=== PATIENT | female | born 1935 | race Caucasian/White ===

== ENCOUNTER 2018-09-18 15:19 | Emergency (ER) | payer OTHER ==
--- OUTSIDE RECORDS SUMMARY | 2018-09-18 15:21 | XMS REPORT | Clinical Summary ---
:1935 Author Organization [facility] Address [address] [place] [address] Care Team Providers Name Role Phone Anum Iniguez JUNIOR BUSINESS ANALYST-C Primary Care Provider Allergies Active Allergy Reactions Severity Noted Date Comments Codeine GI Intolerance 01/21/2016 Other 01/21/2016 Darvocet Medications Medication Sig Dispensed Refills Start Date End Date Status esomeprazole Take 40 mg by 0 Active (NexIUM) 40 MG mouth daily capsule before breakfast. levothyroxine Take 100 mcg by 0 Active (SYNTHROID, mouth every LEVOTHROID) 100 MCG morning. tablet metFORMIN Take 1,000 mg by 0 Active (GLUCOPHAGE) 1000 mouth 2 (two) MG tablet times a day with meals. glipiZIDE Take 5 mg by 0 Active (GLUCOTROL) 5 MG mouth 2 (two) tablet times a day before meals. losartan-hydrochlor Take 1 tablet by 0 Active othiazide (HYZAAR) mouth daily. 50-12.5 mg per tablet potassium chloride Take 10 mEq by 0 Active (K-DUR,KLOR-CON) 10 mouth 2 (two) MEQ CR tablet times a day. amLODIPine Take 5 mg by 0 Active (NORVASC) 5 mg mouth daily. tablet calcium carbonate Take by mouth. 0 Active (CALCIUM 500 ORAL) Raw Calcium cycloSPORINE Administer 1 0 Discontinued (RESTASIS) 0.05 % drop to both 8 ophthalmic emulsion eyes every 12 (twelve) hours. losartan (COZAAR) 0 04/12/2017 Discontinued 50 MG tablet 8 Active Problems Problem Noted Date VIKTORIYA on CPAP 05/26/2017 Pulmonary emphysema 11/07/2016 Essential hypertension 07/09/2016 VIKTORIYA (obstructive sleep apnea) 01/21/2016 AR (allergic rhinitis) 01/21/2016 GERD (gastroesophageal reflux disease) 01/21/2016 Encounters Date Type Specialty Care Team Description 07/09/2018 Telephone Pulmonology Leigha Friedman MA 07/08/2018 Orders Only Pulmonology Manohar Faria MD VIKTORIYA (obstructive sleep apnea) (Primary Dx) 06/24/2018 Orders Only Pulmonology Leigha Friedman MA VIKTORIYA (obstructive sleep apnea) 06/07/2018 Orders Only Pulmonology Manohar Faria MD VIKTORIYA (obstructive sleep apnea) (Primary Dx) 06/07/2018 Telephone Pulmonology Brandi Barfield MA 05/31/2018 Office Visit Pulmonology Linda Amin MD VIKTORIYA on CPAP (Primary Dx) 01/28/2018 Office Visit Pulmonology Manohar Faria MD VIKTORIYA on CPAP ( Primary Dx); Other emphysema; Gastroesophageal reflux disease, esophagitis presence not specified; Allergic rhinitis due to pollen, unspecified chronicity, unspecified seasonality; Essential hypertension 11/03/2017 Telephone Pulmonology Yahaira Meza MA 10/05/2017 Office Visit Pulmonology Manohar Faria MD VIKTORIYA (obstructive sleep apnea) (Primary Dx); Other emphysema; Gastroesophageal reflux disease, esophagitis presence not specified; Allergic rhinitis due to pollen, unspecified chronicity, unspecified seasonality after 09/17/2017 Immunizations Name Dates Previously Given Next Due Pneumococcal Conjugate 12/28/2014 Family History Medical History Relation Name Comments Cancer Father Kidney failure Mother Sleep disorder Son Relation Name Status Comments Father Mother Son Social History Tobacco Use Types Packs/Day Years Used Date Never Smoker Smokeless Tobacco: Never Used Alcohol Use Drinks/Week oz/Week Comments No Sex Assigned at Date Recorded Not on file Job Start Date Occupation Industry Not on file Not on file Not on file Travel History Travel Start Travel End No recent travel history available. Last Filed Vital Signs Vital Sign Reading Time Taken Blood Pressure 154/74 05/31/2018 11:27 AM CDT Pulse 87 05/31/2018 11:27 AM CDT Temperature 36.2 C (97.1 F) 05/31/2018 11:27 AM CDT Respiratory Rate - - Oxygen Saturation 95% 05/31/2018 11:27 AM CDT Inhaled Oxygen Concentration - - Weight 71.2 kg (157 lb) 05/31/2018 11:27 AM CDT Height - - Body Mass Index 27.81 05/31/2018 11:27 AM CDT Plan of Treatment Health Maintenance Due Date Last Done Comments SHINGLES VACCINES (1 of 2) 1986 PNEUMOCOCCAL-13 2001 INFLUENZA VACCINE 03/10/2018 PNEUMOCOCCAL POLYSACCHARIDE VACCINE AGE 65 AND OVER Completed 12/28/2014 Results Not on fileafter 09/17/2017 Insurance Payer Benefit Plan / Group Subscriber ID Type Phone Address HUMANA MEDICARE HUMANA MEDICARE PPO/PFFS/ERS [facility] xxxxxxxxx PPO Advance Directives Patient has advance care planning documents on file. For more information, please contact:Alvino Rodríguez[address] [place] [address]
--- OUTSIDE RECORDS SUMMARY | 2018-09-18 15:21 | XMS REPORT ---
:1935 [facility] Address [address] [place] [address] Care Team Providers Name Role Phone Unavailable Unavailable Unavailable Payers Payer Name Policy Type Policy Number Effective Date Expiration Date Problems This patient has no known problems. Allergies, Adverse Reactions, Alerts Allergy Allergy Status Severity Reaction(s) Onset Inactive Treating Comments Name Type Date Date Clinician dewayne MIDDLETON Active IGLESIA 2018-03 00:00:0 0 Medications This patient has no known medications.
--- NOTE | 2018-09-18 16:24 | RAD REPORT ---
EXAM DESCRIPTION: CT - Head Brain Wo Cont - 09/18/2018 4:06 pm CLINICAL HISTORY: Headache COMPARISON: 2008 TECHNIQUE: Computed axial tomography of the head was obtained. IV contrast was not requested. All CT scans are performed using dose optimization technique as appropriate and may include automated exposure control or mA/KV adjustment according to patient size. FINDINGS: An intracranial bleed is not seen . The ventricles are normal in caliber. No extra-axial fluid collection is noted. Fluid within the sinuses/ mastoids is not seen. IMPRESSION: No acute intracranial abnormality is seen. If patient's symptoms persist MRI of the bra in would be recommended.
[2018-09-18] MEDS ORDERED: KETOROLAC 30 MG/ML INJ ONE (16:52)
[2018-09-18] MEDS ORDERED: METOCLOPRAMIDE 10 MG/2mL INJ ONE (16:52)
[2018-09-18] MEDS ORDERED: DIPHENHYDRAMINE 50 MG/ML VIAL ONE (16:52)
--- NOTE | 2018-09-18 17:04 | EDPHYS ---
Physician Documentation [facility] Name: Melanie Kerr Age: 83 yrs Sex: Female : 1935 Arrival Date: 09/18/2018 Time: 15:23 Bed 20 Private MD: SANDRA WIGGINS ED Physician Robel Mariscal HPI: 09/18 16:36 This 83 yrs old Female presents to ER via Ambulatory with complaints of pm1 Headache. 16:36 The patient complains of pain to the forehead and left eye. The patient describes the pm1 headache as throbbing. Onset: The symptoms/episode began/occurred 2 day(s) ago. Associated signs and symptoms: Pertinent positives: Photophobia Pertinent negatives: fever, neck stiffness, paresthesias, rash, vision changes, weakness. Severity of symptoms: in the emergency department the pain has improved. Headache History: Denies prior headaches. The symptoms are alleviated by Darkened room, the symptoms are aggravated by lights. The patient has not experienced similar symptoms in the past. The patient has not recently seen a physician. Historical: - Allergies: 15:27 Codeine; la1 - PMHx: 15:27 Diabetes - NIDDM; Hypertension; Hypothyroidism; Sleep Apnea; T12 fracture; la1 - Immunization history:: Adult Immunizations up to date. - Social history:: Smoking status: Patient/guardian denies using tobacco. - Ebola Screening: : No symptoms or risks identified at this time. ROS: 16:36 Constitutional: Negative for fever, chills, and weight loss, Eyes: Negative for injury, pm1 pain, redness, and discharge, ENT: Negative for injury, pain, and discharge, Neck: Negative for injury, pain, and swelling, Cardiovascular: Negative for chest pain, palpitations, and edema, Respiratory: Negative for shortness of breath, cough, wheezing, and pleuritic chest pain, Abdomen/GI: Negative for abdominal pain, nausea, vomiting, diarrhea, and constipation, Back: Negative for injury and pain, : Negative for injury, bleeding, discharge, and swelling, MS/Extremity: Negative for injury and deformity, Skin: Negative for injury, rash, and discoloration. 16:36 Neuro: Positive for headache, Negative for numbness, tingling, weakness. Exam: 16:36 Constitutional: This is a well developed, well nourished patient who is awake, alert, pm1 and in no acute distress. Head/Face: Normocephalic, atraumatic. Eyes: Pupils equal round and reactive to light, extra-ocular motions intact. Lids and lashes normal. Conjunctiva and sclera are non-icteric and not injected. Cornea within normal limits. Periorbital areas with no swelling, redness, or edema. ENT: Nares patent. No nasal discharge, no septal abnormalities noted. Tympanic membranes are normal and external auditory canals are clear. Oropharynx with no redness, swelling, or masses, exudates, or evidence of obstruction, uvula midline. Mucous membranes moist. Neck: Trachea midline, no thyromegaly or masses palpated, and no cervical lymphadenopathy. Supple, full range of motion without nuchal rigidity, or vertebral point tenderness. No Meningismus. Chest/axilla: Normal chest wall appearance and motion. Nontender with no deformity. No lesions are appreciated. Cardiovascular: Regular rate and rhythm with a normal S1 and S2. No gallops, murmurs, or rubs. Normal PMI, no JVD. No pulse deficits. Respiratory: Lungs have equal breath sounds bilaterally, clear to auscultation and percussion. No rales, rhonchi or wheezes noted. No increased work of breathing, no retractions or nasal flaring. Abdomen/GI: Soft, non-tender, with normal bowel sounds. No distension or tympany. No guarding or rebound. No evidence of tenderness throughout. Back: No spinal tenderness. No costovertebral tenderness. Full range of motion. Skin: Warm, dry with normal turgor. Normal color with no rashes, no lesions, and no evidence of cellulitis. MS/ Extremity: Pulses equal, no cyanosis. Neurovascular intact. Full, normal range of motion. 16:36 Neuro: Orientation: is normal, Mentation: is normal, Cranial nerves: CN II- XII are normal as tested, Cerebellar function: normal finger to nose testing, Motor: is normal, moves all fours. Vital Signs: 15:29 BP 123 / 88; Pulse 91; Resp 18; Temp 98.9; Pulse Ox 98% on R/A; Weight 70.31 kg; Height la1 5 ft. 3 in. (160.02 cm); Pain 7/10; 17:00 BP 142 / 69; Pulse 89; Resp 18; Pulse Ox 99% on R/A; Pain 3/10; em 15:29 Body Mass Index 27.46 (70.31 kg, 160.02 cm) la1 MDM: 15:30 Patient medically screened. pm1 16:35 Data reviewed: vital signs. Data interpreted: Pulse oximetry: on room air is 98 %. pm1 Interpretation: normal. Counseling: I had a detailed discussion with the patient and/or guardian regarding: the historical points, exam findings, and any diagnostic results supporting the discharge/admit diagnosis, radiology results, the need for outpatient follow up, to return to the emergency department if symptoms worsen or persist or if there are any questions or concerns that arise at home. 09/18 15:39 Order name: CT Head Brain wo Cont; Complete Time: 16:28 pm1 Administered Medications: 16:46 Drug: Benadryl 12.5 mg Route: IVP; Site: left antecubital; hb 17:11 Follow up: Response: No adverse reaction; Pain is decreased em 16:48 Drug: Reglan 10 mg Route: IVP; Site: left antecubital; hb 17:10 Follow up: Response: No adverse reaction; Pain is decreased em 16:50 Drug: TORadol 15 mg Route: IVP; Site: left antecubital; hb 17:11 Follow up: Response: No adverse reaction; Pain is decreased em Disposition: 18:08 Co-signature as Attending Physician, Robel Mariscal MD. rn Disposition: 09/18/18 17:03 Discharged to Home. Impression: Headache. - Condition is Stable. - Discharge Instructions: General Headache Without Cause. - Medication Reconciliation Form, Thank You Letter form. - Follow up: Emergency Department; When: As needed; Reason: Worsening of condition. Follow up: Private Physician; When: 2 - 3 days; Reason: Recheck today's complaints, Continuance of care, Re-evaluation by your physician. - Problem is new. - Symptoms have improved. Signatures: Dispatcher [employer] Sinan Cha, FACING GRINDER FACING GRINDER Robel Ocampo MD MD rn Attema, Lee, RN RN la1 Simone Trimble, PINION STAKER PINION STAKER pm1 Beth Coats, RN RN hb Corrections: (The following items were deleted from the chart) 17:29 17:03 09/18/2018 17:03 Discharged to Home. Impression: Headache. Condition is Stable. em Forms are Medication Reconciliation Form, Thank You Letter, Antibiotic Education, Prescription Opioid Use. Follow up: Emergency Department; When: As needed; Reason: Worsening of condition. Follow up: Private Physician; When: 2 - 3 days; Reason: Recheck today's complaints, Continuance of care, Re-evaluation by your physician. Problem is new. Symptoms have improved. pm1
--- NOTE | 2018-09-18 17:04 | ER ---
Nurse's Notes [facility] Name: Melanie Kerr Age: 83 yrs Sex: Female : 1935 Arrival Date: 09/18/2018 Time: 15:23 Bed 20 Private MD: SANDRA WIGGINS Diagnosis: Headache Presentation: 09/18 15:27 Presenting complaint: Patient states: I started with a headache that started la1 at the top of my head and now and it is going down in to my left eye. Transition of care: patient was not received from another setting of care. Onset of symptoms was September 18, 2018. Risk Assessment: Do you want to hurt yourself or someone else? Patient reports no desire to harm self or others. Initial Sepsis Screen: Does the patient meet any 2 criteria? No. Patient's initial sepsis screen is negative. Does the patient have a suspected source of infection? No. Patient's initial sepsis screen is negative. Care prior to arrival: None. 15:27 Method Of Arrival: Ambulatory la1 15:27 Acuity: SHABBIR 3 la1 Historical: - Allergies: 15:27 Codeine; la1 - PMHx: 15:27 Diabetes - NIDDM; Hypertension; Hypothyroidism; Sleep Apnea; T12 fracture; la1 - Immunization history:: Adult Immunizations up to date. - Social history:: Smoking status: Patient/guardian denies using tobacco. - Ebola Screening: : No symptoms or risks identified at this time. Screenin:40 Abuse screen: Denies threats or abuse. Nutritional screening: No deficits noted. em Tuberculosis screening: No symptoms or risk factors identified. Fall Risk None identified. Assessment: 15:40 General: Appears in no apparent distress. comfortable, Behavior is calm, cooperative. em Pain: Complains of pain in forehead, left cheek and left eye Pain does not radiate. Pain currently is 0 out of 10 on a pain scale. at worst was 6 out of 10 on a pain scale. Quality of pain is described as sharp, Pain began 2-3 days ago. Is intermittent. Neuro: Level of Consciousness is awake, alert, obeys commands, Oriented to person, place, time, situation, Retail Product Advisor are equal bilaterally Speech is normal, Facial symmetry appears normal, Intact Reports headache Denies weakness dizziness, numbness. Cardiovascular: Capillary refill < 3 seconds Patient's skin is warm and dry. Respiratory: Airway is patent Respiratory effort is even, unlabored, Respiratory pattern is regular, symmetrical. GI: Patient currently denies nausea, vomiting. Derm: Skin is intact, is thin, Skin is pink, warm \T\ dry. Musculoskeletal: Circulation, motion, and sensation intact. Capillary refill < 3 seconds, Range of motion: intact in all extremities. 17:00 Reassessment: Patient appears in no apparent distress at this time. Patient and/or em family updated on plan of care and expected duration. Pain level reassessed. Patient is alert, oriented x 3, equal unlabored respirations, skin warm/dry/pink. rates pain 3/10 Patient states feeling better. Patient states symptoms have improved. Vital Signs: 15:29 BP 123 / 88; Pulse 91; Resp 18; Temp 98.9; Pulse Ox 98% on R/A; Weight 70.31 kg; Height la1 5 ft. 3 in. (160.02 cm); Pain 7/10; 17:00 BP 142 / 69; Pulse 89; Resp 18; Pulse Ox 99% on R/A; Pain 3/10; em 15:29 Body Mass Index 27.46 (70.31 kg, 160.02 cm) la1 ED Course: 15:23 Patient arrived in ED. sb2 15:23 SANDRA WIGGINS is Private Physician. sb2 15:28 Triage completed. la1 15:28 Arm band placed on left wrist. la1 15:30 Simone Trimble NP is PHCP. pm1 15:30 Robel Mariscal MD is Attending Physician. pm1 15:35 Sinan Atkinson LVN is Primary Nurse. em 15:40 Patient has correct armband on for positive identification. Bed in low position. Call em light in reach. Adult w/ patient. Pulse ox on. NIBP on. 16:05 CT completed. Patient tolerated procedure well. Patient moved to CT via wheelchair. Patient moved back from CT. 16:07 CT Head Brain wo Cont In Process Unspecified. EDMS 16:40 Inserted saline lock: 20 gauge in left antecubital area, using aseptic technique. Blood dh3 collected. 17:27 No provider procedures requiring assistance completed. IV discontinued, intact, em bleeding controlled, No redness/swelling at site. Pressure dressing applied. Administered Medications: 16:46 Drug: Benadryl 12.5 mg Route: IVP; Site: left antecubital; hb 17:11 Follow up: Response: No adverse reaction; Pain is decreased em 16:48 Drug: Reglan 10 mg Route: IVP; Site: left antecubital; hb 17:10 Follow up: Response: No adverse reaction; Pain is decreased em 16:50 Drug: TORadol 15 mg Route: IVP; Site: left antecubital; hb 17:11 Follow up: Response: No adverse reaction; Pain is decreased em Outcome: 17:03 Discharge ordered by MD. pm1 17:27 Discharged to home via wheelchair. em 17:27 Condition: good 17:27 Discharge instructions given to patient, family, Instructed on discharge instructions, follow up and referral plans. Demonstrated understanding of instructions, follow-up care. 17:29 Patient left the ED. em Signatures: Dispatcher [employer] EDPillo Jernigan Edgar, TUTOR TUTOR em Igor Gaytan RN RN la1 Simone Trimble NP SWATCH CHECKER pm1 Beth Coats RN RN hb Herrera, Deanna 3 Slime Garrison2
== END 2018-09-18 17:29 | disposition home or self-care (01) ==
LOC: ER 15:19
DX: R51 Headache (principal)
CPT/HCPCS: 70450; 96374; 96375; 99284; J2765

== ENCOUNTER 2018-09-21 12:52 | Emergency (ER) | payer OTHER ==
--- OUTSIDE RECORDS SUMMARY | 2018-09-21 12:54 | XMS REPORT | Clinical Summary ---
:1935 Author Organization [facility] Address [address] [place] [address] Care Team Providers Name Role Phone Anum Iniguez DIRECTOR VIDEO-C Primary Care Provider Allergies Active Allergy Reactions [...] to pollen, unspecified chronicity, unspecified seasonality after 09/20/2017 Immunizations Name Dates Previously Given Next Due [...] OVER Completed 12/28/2014 Results Not on fileafter 09/20/2017 Insurance Payer Benefit Plan / Group Subscriber ID Type Phone Address HUMANA MEDICARE HUMANA MEDICARE PPO/PFFS/ERS [facility] xxxxxxxxx PPO Advance Directives Patient has advance care planning documents on file. For more information, please contact:Alvino Rodríguez[address] [place] [address]
--- OUTSIDE RECORDS SUMMARY | 2018-09-21 12:54 | XMS REPORT ---
:1935 [facility] Address [address] [place] [address] Care Team Providers Name Role Phone Unavailable [...]
--- NOTE | 2018-09-21 13:54 | ER ---
Nurse's Notes [facility] Name: Melanie Kerr Age: 83 yrs Sex: Female : 1935 Arrival Date: 09/21/2018 Time: 12:54 Bed 28 Private MD: Diagnosis: Zoster [herpes zoster] Presentation: 09/21 13:11 Presenting complaint: Patient states: was seen here on Thursday for migraine, followed iw up with PCP yesterday, still c/o nausea, and also noticed a rash across the left side of her forehead/scalp yesterday, thinks it might be shingles. Transition of care: patient was not received from another setting of care. Onset of symptoms was September 20, 2018. Risk Assessment: Do you want to hurt yourself or someone else? Patient reports no desire to harm self or others. Initial Sepsis Screen: Does the patient meet any 2 criteria? No. Patient's initial sepsis screen is negative. Does the patient have a suspected source of infection? No. Patient's initial sepsis screen is negative. Care prior to arrival: None. 13:11 Method Of Arrival: Ambulatory iw 13:11 Acuity: SHABBIR 4 iw Historical: - Allergies: 13:14 Codeine; iw - Home Meds: 13:14 glipizide 5 mg Oral tab 1 tab 2 times per day [Active]; potassium chloride 10 mEq Oral iw TbER 1 tab once daily [Active]; levothyroxine 100 mcg tab 1 tab once daily [Active]; metformin 1,000 mg Oral tab 1 tab 2 times per day [Active]; amlodipine 5 mg tab 1 tab once daily [Active]; Nexium 40 mg Oral cpDR 1 cap once daily [Active]; - PMHx: 13:14 Diabetes - NIDDM; Hypertension; Hypothyroidism; Sleep Apnea; T12 fracture; iw - Immunization history:: Adult Immunizations up to date. - Ebola Screening: : Patient negative for fever greater than or equal to 101.5 degrees Fahrenheit, and additional compatible Ebola Virus Disease symptoms Patient denies exposure to infectious person Patient denies travel to an Ebola-affected area in the 21 days before illness onset No symptoms or risks identified at this time. - Family history:: not pertinent. - Social history:: Smoking status: Patient/guardian denies using tobacco, never smoked. - Hospitalizations: : No recent hospitalization is reported. Screenin:30 Abuse screen: Denies threats or abuse. Nutritional screening: No deficits noted. tl3 Tuberculosis screening: No symptoms or risk factors identified. Fall Risk None identified. Assessment: 13:30 General: Appears in no apparent distress. slender, well groomed, well developed, well tl3 nourished, Behavior is calm, cooperative, appropriate for age. Pain: Complains of pain in face. Neuro: Level of Consciousness is awake, alert, obeys commands, Oriented to person, place, time, situation, Appropriate for age. Cardiovascular: Patient's skin is warm and dry. Respiratory: Airway is patent Respiratory effort is even, unlabored, Respiratory pattern is regular, symmetrical. GI: No signs and/or symptoms were reported involving the gastrointestinal system. : No signs and/or symptoms were reported regarding the genitourinary system. EENT: No signs and/or symptoms were reported regarding the EENT system. Derm: Rash noted that is left side of face. Musculoskeletal: No signs and/or symptoms reported regarding the musculoskeletal system. 14:02 Reassessment: Patient appears in no apparent distress at this time. No changes from tl3 previously documented assessment. Patient and/or family updated on plan of care and expected duration. Pain level reassessed. Patient is alert, oriented x 3, equal unlabored respirations, skin warm/dry/pink. pt being discharged. Vital Signs: 13:12 BP 164 / 69 RA Sitting (auto/reg); Pulse 82; Resp 97 S; Pulse Ox 97% on R/A; Pain 6/10; jp3 14:02 BP 153 / 89; Pulse 80; Resp 18; Pulse Ox 98% on R/A; tl3 13:12 Reported pain is more overall "crappy" feeling jp3 ED Course: 12:54 Patient arrived in ED. rg4 13:04 Ronel Granados, RN is Primary Nurse. tl3 13:13 Triage completed. iw 13:14 Arm band placed on. iw 13:16 Robel Mariscal MD is Attending Physician. rn 13:20 Bed in low position. Call light in reach. Side rails up X 1. Warm blanket given. Pillow jp3 given. Pulse ox on. NIBP on. 13:30 No provider procedures requiring assistance completed. Patient did not have IV access tl3 during this emergency room visit. 13:51 Leidlein, Becky, MD is Referral Physician. rn Administered Medications: No medications were administered Outcome: 13:53 Discharge ordered by . rn 14:02 Discharged to home ambulatory. tl3 14:02 Condition: stable 14:02 Discharge instructions given to patient, family, Instructed on discharge instructions, follow up and referral plans. medication usage, Demonstrated understanding of instructions, follow-up care, medications, Prescriptions given X 3. 14:03 Patient left the ED. tl3 Signatures: Geri John RN RN iw Nieto, Roman, MD MD rn Garcia, Rubi rg4 Ronel Granados RN RN tl3 Rickie Garrido jp3
--- NOTE | 2018-09-21 13:54 | EDPHYS ---
Physician Documentation [facility] Name: Melanie Kerr Age: 83 yrs Sex: Female : 1935 Arrival Date: 09/21/2018 Time: 12:54 Bed 28 Private MD: ED Physician Robel Mariscal HPI: 09/21 13:48 This 83 yrs old Female presents to ER via Ambulatory with complaints of rn Shingles. 13:48 The patient's rash thought to be caused by an unknown cause. The rash is located on the rn face. The rash can be described as erythematous, raised, vesicular. Onset: The symptoms/episode began/occurred today. Severity of symptoms: At their worst the symptoms were mild in the emergency department the symptoms are unchanged. The patient has not experienced similar symptoms in the past. Reports has been having headaches, now gone, seen here with neg CT scan 2 days ago, seen by pcp yesterday, now noticed rash to left forehead, no vision or eye complaints, no fever. . Historical: - Allergies: 13:14 Codeine; iw - Home Meds: 13:14 glipizide 5 mg Oral tab 1 tab 2 times per day [Active]; potassium chloride 10 mEq Oral iw TbER 1 tab once daily [Active]; levothyroxine 100 mcg tab 1 tab once daily [Active]; metformin 1,000 mg Oral tab 1 tab 2 times per day [Active]; amlodipine 5 mg tab 1 tab once daily [Active]; Nexium 40 mg Oral cpDR 1 cap once daily [Active]; - PMHx: 13:14 Diabetes - NIDDM; Hypertension; Hypothyroidism; Sleep Apnea; T12 fracture; iw - Immunization history:: Adult Immunizations up to date. - Ebola Screening: : Patient negative for fever greater than or equal to 101.5 degrees Fahrenheit, and additional compatible Ebola Virus Disease symptoms Patient denies exposure to infectious person Patient denies travel to an Ebola-affected area in the 21 days before illness onset No symptoms or risks identified at this time. - Family history:: not pertinent. - Social history:: Smoking status: Patient/guardian denies using tobacco, never smoked. - Hospitalizations: : No recent hospitalization is reported. ROS: 13:48 Constitutional: Negative for fever, chills, and weight loss, Eyes: Negative for injury, rn pain, redness, and discharge, Neck: Negative for injury, pain, and swelling, Cardiovascular: Negative for chest pain, palpitations, and edema, Respiratory: Negative for shortness of breath, cough, wheezing, and pleuritic chest pain, Abdomen/GI: Negative for abdominal pain, nausea, vomiting, diarrhea, and constipation, MS/Extremity: Negative for injury and deformity, Skin: + rash to left forehead Neuro: Negative for weakness, numbness, tingling, and seizure. Exam: 13:48 Constitutional: This is a well developed, well nourished patient who is awake, alert, rn and in no acute distress. Head/Face: Normocephalic, atraumatic. Eyes: Pupils equal round and reactive to light, extra-ocular motions intact. Lids and lashes normal. Conjunctiva and sclera are non-icteric and not injected. Cornea within normal limits. Periorbital areas with no swelling, redness, or edema. Skin: + vesicular rash to left forehead, no ocular involvement, normal vision, no periocular swelling, no drainage MS/ Extremity: Pulses equal, no cyanosis. Neurovascular intact. Full, normal range of motion. Equal circumference. Neuro: Awake and alert, GCS 15, oriented to person, place, time, and situation. Cranial nerves II-XII grossly intact. Motor strength 5/5 in all extremities. Sensory grossly intact. Cerebellar exam normal. Normal gait. Vital Signs: 13:12 BP 164 / 69 RA Sitting (auto/reg); Pulse 82; Resp 97 S; Pulse Ox 97% on R/A; Pain 6/10; jp3 14:02 BP 153 / 89; Pulse 80; Resp 18; Pulse Ox 98% on R/A; tl3 13:12 Reported pain is more overall "crappy" feeling jp3 MDM: 13:16 Patient medically screened. rn 13:48 Differential diagnosis: impetigo, shingles. Data reviewed: vital signs, nurses notes, rn old medical records, and as a result, I will discharge patient. Counseling: I had a detailed discussion with the patient and/or guardian regarding: the historical points, exam findings, and any diagnostic results supporting the discharge/admit diagnosis, the need for outpatient follow up, to return to the emergency department if symptoms worsen or persist or if there are any questions or concerns that arise at home. Special discussion: I discussed with the patient/guardian in detail that at this point there is no indication for admission to the hospital. It is understood, however, that if the symptoms persist or worsen the patient needs to return immediately for re-evaluation. 13:48 Special discussion: Based on the history and exam findings, there is no indication for rn further emergent testing or inpatient evaluation. I discussed with the patient/guardian the need to see the opthamologist for further evaluation of the symptoms. ED course: Told her because of location of rash to make appt with her eye doctor, Dr Yang for full ophtho eval. . Administered Medications: No medications were administered Disposition: 09/21/18 13:53 Discharged to Home. Impression: Zoster [herpes zoster]. - Condition is Stable. - Discharge Instructions: Shingles. - Prescriptions for Prednisone 20 mg Oral Tablet - take 3 tablet by ORAL route once daily for 5 days; 15 tablet. Valtrex 1 g Oral Tablet - take 1 tablet by ORAL route every 8 hours for 7 days; 21 tablet. Zofran ODT 4 mg Oral tablet,disintegrating - place 1 tablet by TRANSLINGUAL route every 8 hours As needed; 20 tablet. - Medication Reconciliation Form, Thank You Letter, Antibiotic Education, Prescription Opioid Use form. - Follow up: Becky Yang MD; When: As needed; Reason: Recheck today's complaints, Re-evaluation by your physician. - Problem is new. - Symptoms have improved. Signatures: Geri John RN RN iw Nieto, Roman, MD MD rn Lowrey, Tammy, RN RN tl3 Corrections: (The following items were deleted from the chart) 14:03 13:53 09/21/2018 13:53 Discharged to Home. Impression: Zoster [herpes zoster]. tl3 Condition is Stable. Forms are Medication Reconciliation Form, Thank You Letter, Antibiotic Education, Prescription Opioid Use. Follow up: Becky Yang; When: As needed; Reason: Recheck today's complaints, Re-evaluation by your physician. Problem is new. Symptoms have improved. rn
== END 2018-09-21 14:03 | disposition home or self-care (01) ==
LOC: ER 12:52
DX: B02.9 Zoster without complications (principal); E11.9 Type 2 diabetes mellitus without complications; I10 Essential (primary) hypertension; E03.9 Hypothyroidism, unspecified; Z79.84 Long term (current) use of oral hypoglycemic drugs; Z88.5 Allergy status to narcotic agent
CPT/HCPCS: 99283

== ENCOUNTER 2019-07-21 10:24 | Observation (INO) | payer OTHER ==
--- OUTSIDE RECORDS SUMMARY | 2019-07-21 11:13 | XMS REPORT ---
:1935 [facility] Address [address] [place] [address] Care Team Providers Name Role Phone Unavailable Unavailable Unavailable Payers Payer Name Policy Type Policy Number Effective Date Expiration Date Problems This patient has no known problems. Allergies, Adverse Reactions, Alerts Allergy Allergy Status Severity Reaction(s) Onset Inactive Treating Comments Name Type Date Date Clinician dewayne MIDDLETON Active [place] 2018-03 00:00:0 0 Medications This patient has no known medications. Results Test Description Test Time Test Comments Text Results Atomic Results Result Comments - MRI L-SPINE W/O CONT 2019-03-14 12:20:00 Patient Name: WINIFRED ENGLISH Unit No: [id number] EXAMS: CPT CODE: [id number] MRI L-SPINE W/O CONT [id number] MRI OF THE LUMBAR SPINE: DIAGNOSIS: 1. At L1-2, mild disc degeneration. No central canal stenosis. Mild to moderate foraminal stenosis. There is a chronic benign compression fracture of the L1 vertebral body with greater than 70% loss of vertebral body height centrally. 2. At L2-3, moderate disc degeneration. Marked bone marrow edema involves the entire L3 vertebral body suggestive of an acute compression fracture. This is likely superimposed on chronic superior endplate compression fracture. There is adjacent increased signal present within the paravertebral soft tissues at this level. This spectrum of findings is likely related to subacute compression fracture. Please correlate with the clinical examination and history. This may be further evaluated with a whole-body nuclear bone scan. Mild central canal stenosis. Moderate bilateral facet arthropathy. Moderate foraminal stenosis. 3. At L3-4, disc desiccation. Mild central canal stenosis. Moderate facet arthropathy. No foraminal stenosis. 4. At L4-5, disc desiccation. Mild central canal stenosis. Mild facet arthropathy. Mild foraminal stenosis. 5. At L5-S1, disc desiccation. Mild disc bulging. Mild to moderate central canal stenosis. Marked bilateral facet arthropathy. No foraminal stenosis. COMMENT: COMPARISON: No prior exams available. Sagittal T1, T2 and STIR and axial T1 and T2-weighted sequences are obtained of the lumbar spine. The lumbar vertebrae are within normal limits in signal. The findings are as above. The conus is in the expected location. at 1220 Reported and signed by: Raúl Otto MD CC: Joshua Holguin MD Technologist: Mirian Holliday(R) Transcribed D/ ([id number]) CelinaGVG [facility] NAME: WINIFRED ENGLISH [address] [facility] PHYS: Joshua Kaur : 1935 AGE: 83 SEX: F [place] [address] LOC: Y.MRI PHONE #: [phone] EXAM DATE: 03/12/2019 STATUS: DEP CLI FAX #: [phone] RAD #: D/C DT PAGE 1 Signed Report Patient Name: WINIFRED ENGLISH Unit No: [id number] EXAMS: CPT CODE: [id number] MRI L-SPINE W/O CONT [id number] <Continued> Orig Print D/T: S: 03/14/2019 ([id number]) [facility] NAME: WINIFRED ENGLISH [address] [facility] PHYS: Joshua Kaur : 1935 AGE: 83 SEX: F [place] [address] LOC: Y.MRI PHONE #: [phone] EXAM DATE: 03/12/2019 STATUS: DEP CLI FAX #: [phone] RAD #: D/C DT PAGE 2 Signed Report
--- NOTE | 2019-07-21 11:48 | RAD REPORT ---
EXAM DESCRIPTION: CT - Head Brain Wo Cont - 07/21/2019 11:42 am CLINICAL HISTORY: SLURRED SPEECH Headache, drowsiness, CVA symptomology COMPARISON: Head Brain Wo Cont dated 09/18/2018; HEAD BRAIN W O CONTRAST dated 05/26/2009 TECHNIQUE: All CT scans are performed using dose optimization technique as appropriate and may inclu de automated exposure control or mA/KV adjustment according to patient size. FINDINGS: No intracranial hemorrhage, hydrocephalus or extra-axial fluid collection.No areas of brai n edema or evidence of midline shift. The paranasal sinuses and mastoids are clear. The calvarium is intact. IMPRESSION: No acute intracranial abnormality.
[2019-07-21 12:22] LABS: Absolute Lymphocytes (CBC) 1.4 K/uL (0.7-4.9); Basophils % 0.8 % (0-1.3); Hematocrit 38.5 % (36.0-45.0); Lymphocytes % 18.8 % (15.3-44.8); MPV 8.4 fL (7.6-11.3); RBC Red Blood Cell Count 4.23 M/uL (3.86-4.86)
[2019-07-21 12:23] LABS: Protime INR 1.06
[2019-07-21] MEDS ORDERED: ASPIRIN 81 MG CHEWABLE TABLET ONE (12:30)
[2019-07-21 12:36] LABS: ALT/SGPT 23 U/L (12-78); AST/SGOT 17 U/L (15-37); Albumin 3.8 g/dL (3.4-5.0); Alkaline Phosphatase 81 U/L (45-117); BUN Blood Urea Nitrogen 18 mg/dL (7-18); Bicarbonate 29 mmol/L (21-32); Bilirubin Direct 0.2 mg/dL (0-0.2); Bilirubin Total 0.4 mg/dL (0.2-1.0); Glucose Level 125 mg/dL (74-106); Magnesium 1.9 mg/dL (1.8-2.4); NT PRO-BNP 213 pg/mL (<450); Potassium 3.9 mmol/L (3.5-5.1); Protein, Total 7.2 g/dL (6.4-8.2); Sodium Level 135 mmol/L (136-145); Troponin (Emerg Dept Use Only) < 0.02 ng/mL (0.0-0.045)
--- NOTE | 2019-07-21 12:39 | RAD REPORT ---
EXAM DESCRIPTION: Irina Single View07/21/2019 12:29 pm CLINICAL HISTORY: Hypertension/TIA COMPARISON: 2018 FINDINGS: The lungs appear clear of acute infiltrate. The heart is normal size IMPRESSION: No acute abnormalities displayed
--- NOTE | 2019-07-21 13:13 | ER ---
Nurse's Notes [facility] Name: Melanie Kerr Age: 83 yrs Sex: Female : 1935 Arrival Date: 07/21/2019 Time: 10:27 Bed 7 Private MD: Diagnosis: Transient cerebral ischemic attack, unspecified Presentation: 07/21 10:31 Presenting complaint: Patient states: about 7pm last night i was talking to myself as tw2 usual cause i live alone and i couldn't make the words come out, i couldn't make the sentence that i was trying to, it lasted about a minute, it has not happened, i didn't have any other symptoms, my son wanted me to come in but i am terribly hard headed and told him it went away so i didn't want to come in. Transition of care: patient was not received from another setting of care. Onset of symptoms was July 20, 2019. Risk Assessment: Do you want to hurt yourself or someone else? Patient reports no desire to harm self or others. Initial Sepsis Screen: Does the patient meet any 2 criteria? No. Patient's initial sepsis screen is negative. Does the patient have a suspected source of infection? No. Patient's initial sepsis screen is negative. Care prior to arrival: None. 10:31 Method Of Arrival: Ambulatory tw2 10:31 Acuity: SHABBIR 3 tw2 10:38 No acute neurological deficit is noted. Triage Assessment: 10:36 The onset of the patients symptoms was more than six hours ago. The onset of the tw2 patients symptoms was July 20, 2019 at 19:00. General: Appears in no apparent distress. well groomed, Behavior is calm, cooperative, appropriate for age. Pain: Denies pain. Neuro: Reports "couldn't get the sentence out i was trying to say at 7pm last night". Stroke Activation: Symptom onset > 6 hours Physician: Stroke Attending; Name: ; Notified At: ; Arrived At: Physician: Chief Stroke Resident; Name: ; Notified At: ; Arrived At: Physician: Stroke Resident; Name: ; Notified At: ; Arrived At: Physician: ED Attending; Name: ; Notified At: ; Arrived At: Physician: ED Resident; Name: ; Notified At: ; Arrived At: Historical: - Allergies: 10:40 Codeine (Vomiting); tw2 - Home Meds: 10:40 amlodipine 5 mg tab 1 tab once daily [Active]; glipizide 5 mg Oral tab 1 tab 2 times tw2 per day [Active]; losartan-hydrochlorothiazide 50-12.5 mg Oral tab 1 tab once daily [Active]; levothyroxine 100 mcg tab 1 tab once daily [Active]; metformin 1,000 mg Oral tab 1 tab 2 times per day [Active]; Nexium 20 mg oral cpDR [Active]; potassium chloride 10 mEq Oral TbER 1 tab once daily [Active]; Restasis 0.05 % ophthalmic dpet 1 drop 2 times per day [Active]; Tymols 1 80 mcg shot per day [Active]; - PMHx: 10:40 Diabetes - NIDDM; Hypertension; Hypothyroidism; Sleep Apnea; T12 fracture; tw2 - PSHx: 10:40 L-1 Vertebrae; right knee replacement; cataract; tw2 - Immunization history:: Adult Immunizations. - Social history:: Smoking status: . - Ebola Screening: : Patient denies travel to an Ebola-affected area in the 21 days before illness onset. Screenin:41 VAN Screening: Arm Drift: Patient shows no arm weakness. Patient is VAN negative. sg Patient has been NPO before screening. The patient is alert, able to follow commands. The patient does not exhibit slurred or garbled speech The patient is not exhibiting difficulty speaking. The patient does not exhibit difficulty understanding words. The patient is able to swallow own secretions with no drooling or need for suction. Patient tolerated one teaspoon of water. No drooling, immediate coughing, gurgling, or clearing of the throat was noted. The patient tolerated 90mL of water. No drooling, immediate coughing, gurgling, or clearing of the throat was noted. The patient passed the bedside swallow screening. Oral medications may be given as ordered. Contact Physician for further diet orders. Assessment: 11:12 VAN Scoring: Arm Drift: Patients demonstrates NO arm weakness. Patient is VAN Negative. tw2 Visual Disturbance: No visual disturbance noted. Aphasia: No aphasia noted. Neglect: No neglect noted. 11:13 T-PA (Activase) Screening: Contraindications: Patient reports onset of signs and tw2 symptoms of stroke greater than 6 hours ago: Yes. 11:35 Reassessment: pt is in CT at this time. tw2 11:41 Reassessment: pt returned from CT at this time. sg 11:41 The patient has not been NPO before screening. The patient is alert, and able to follow sg commands. The patient does not exhibit slurred or garbled speech. The patient is not exhibiting difficulty speaking. The patient does not exhibit difficulty understanding words. The patient is able to swallow own secretions with no drooling or need for suction. Patient tolerated one teaspoon of water. No drooling, immediate coughing, gurgling, or clearing of the throat was noted. The patient tolerated 90mL of water. No drooling, immediate coughing, gurgling, or clearing of the throat was noted. Provider notified of bedside swallow screening results: Rivera Luo MD. 11:43 The patient passed the bedside swallow screening. Oral medications may be given as sg ordered. Contact Physician for further diet orders. General: Appears in no apparent distress. well groomed, well developed, well nourished, Behavior is calm, cooperative, appropriate for age. Pain: Denies pain. Neuro: Level of Consciousness is awake, alert, obeys commands, Oriented to person, place, time, Agriculture Mechanic are equal bilaterally Moves all extremities. Speech is normal, Facial droop on right. Cardiovascular: Capillary refill is brisk in bilateral fingers Patient's skin is warm and dry. Chest pain is denied. Respiratory: Airway is patent Respiratory effort is even, unlabored, Respiratory pattern is regular, symmetrical. GI: Abdomen is round non-distended, Reports tolerance of fluids, tolerance of food. : No signs and/or symptoms were reported regarding the genitourinary system. EENT: No signs and/or symptoms were reported regarding the EENT system. Derm: Skin is pink, warm \\T\\ dry. Musculoskeletal: Circulation, motion, and sensation intact. Range of motion: intact in all extremities. 13:00 Reassessment: Patient appears in no apparent distress at this time. Patient and/or sg family updated on plan of care and expected duration. Pain level reassessed. Patient is alert, oriented x 3, equal unlabored respirations, skin warm/dry/pink. awaiting radiology at this time, will continue to monitor. 14:00 Reassessment: Patient appears in no apparent distress at this time. Patient and/or sg family updated on plan of care and expected duration. Pain level reassessed. Patient is alert, oriented x 3, equal unlabored respirations, skin warm/dry/pink. Patient states feeling better. 15:25 Reassessment: Patient appears in no apparent distress at this time. Patient and/or sg family updated on plan of care and expected duration. Pain level reassessed. Patient is alert, oriented x 3, equal unlabored respirations, skin warm/dry/pink. pt to be admitted, admission orders received, awaiting radiology results, will continue to monitor. 16:28 Reassessment: Patient appears in no apparent distress at this time. Patient and/or sg family updated on plan of care and expected duration. Pain level reassessed. Patient is alert, oriented x 3, equal unlabored respirations, skin warm/dry/pink. awaiting a call back from Yaneth MATOS at this time, pt stated understanding Patient states feeling better. 16:34 Reassessment: pt reports using CPAP at night for sleeping, pt states does not have her sg CPAP machine with her for admission, pt to be admitted, receiving nurse Yaneth notified. Vital Signs: 10:40 BP 165 / 71; Pulse 98; Resp 17; Temp 97.3(TE); Pulse Ox 97% on R/A; Weight 68.04 kg tw2 (R); Height 5 ft. 3 in. (160.02 cm) (R); Pain 0/10; 12:00 BP 155 / 72; Pulse 89; Resp 18 S; Pulse Ox 98% on R/A; sg 13:00 BP 146 / 77; Pulse 87; Resp 17 S; Pulse Ox 100% on R/A; Pain 0/10; sg 14:20 BP 142 / 72; Pulse 88; Resp 18 S; Pulse Ox 98% on R/A; Pain 0/10; sg 15:30 BP 144 / 70; Pulse 86; Resp 17; Pulse Ox 98% on R/A; Pain 0/10; sg 16:30 BP 142 / 70; Pulse 80; Resp 17; Temp 97.3; Pulse Ox 98% on R/A; Pain 0/10; sg 10:40 Body Mass Index 26.57 (68.04 kg, 160.02 cm) tw2 NIH Stroke Scale Scores: 10:31 NIHSS Score: 0 tw2 11:41 NIHSS Score: 0 sg 13:04 NIHSS Score: 0 jr8 ED Course: 10:27 Patient arrived in ED. mr 10:35 Triage completed. tw2 10:35 Arm band placed on. tw2 10:35 No provider procedures requiring assistance completed. sg 10:38 Pulse ox on. NIBP on. sg 10:38 Head of bed elevated. sg 10:38 Patient has correct armband on for positive identification. Bed in low position. Call sg light in reach. Side rails up X2. 11:40 Saleem Contreras, RN is Primary Nurse. sg 11:44 CT Head Brain wo Cont In Process Unspecified. EDMS 11:48 David Toro PA is PHCP. jr8 11:48 Rivera Luo MD is Attending Physician. jr8 12:33 EKG done, by environmental services tech. reviewed by David KAHN. at1 12:36 XRAY Chest (1 view) In Process Unspecified. EDMS 13:00 Initial lab(s) drawn, by tn, sent to lab. Urine collected: clean catch specimen, clear, jb1 akira colored. Inserted saline lock: 22 gauge in left antecubital area, using aseptic technique. Blood collected. 13:10 Vishal Lim MD is Hospitalizing Provider. jr8 13:37 Awaiting: MRI at this time. sg 14:08 Carotid Artery Bilateral US In Process Unspecified. EDMS 15:08 MRA Head Wo Cont In Process Unspecified. EDMS 15:08 Brain W/Wo Cont In Process Unspecified. EDMS 15:08 MRA Neck W/Wo Cont In Process Unspecified. EDMS 15:42 Pt visited by Friend. sg 16:29 Patient admitted, IV remains in place. intact, No redness/swelling at site. sg 16:38 Admitting physician to see patient. sg Administered Medications: 12:36 Drug: Aspirin 81 mg Route: PO; jl7 13:20 Follow up: Response: No adverse reaction sg Outcome: 13:10 Decision to Hospitalize by Provider. jr8 17:02 Admitted to Tele accompanied by tech, via wheelchair, room 229, with chart. sg 17:02 Condition: good 17:02 Discharge instructions given to patient, Instructed on the need for admit, safety practices, Demonstrated understanding of instructions, follow-up care. 17:21 Patient left the ED. NIH Stroke Scale - NIH Stroke Score Date: 07/21/2019 Time: 10:31 Total Score = 0 1a. Level of Consciousness (LOC) - 0(Alert) 1b. Level of Consciousness (LOC) (Year \\T\\ Age) - 0(Both) 1c. LOC Commands (Open \\T\\ Closes Eyes/Hide Handler) - 0(Both) 2. Best Gaze (Lateral Gaze Paresis) - 0(Normal) 3. Visual Field Loss - 0(No visual loss) 4. Facial Palsy - 0(Normal) 5a. Left Arm: Motor (10-second hold) - 0(No drift) 5b. Right Arm: Motor (10-second hold) - 0(No drift) 6a. Left Leg: Motor (5-second hold - always test supine) - 0(No drift) 6b. Right Leg: Motor (5-second hold - always test supine) - 0(No drift) 7. Limb Ataxia (finger/nose \\T\\ heel/garzon - test with eyes open) - 0(Absent) 8. Sensory Loss (pinprick arms/legs/face) - 0(Normal) 9. Best Language: Aphasia (description/naming/reading) - 0(No aphasia) 10. Dysarthria (speech clarity - read or repeat words) - 0(Normal) 11. Extinction and Inattention (visual/tactile/auditory/spatial/personal) - 0(No abnormality) Initials: tw2 NIH Stroke Scale - NIH Stroke Score Date: 07/21/2019 Time: 11:41 Total Score = 0 1a. Level of Consciousness (LOC) - 0(Alert) 1b. Level of Consciousness (LOC) (Year \\T\\ Age) - 0(Both) 1c. LOC Commands (Open \\T\\ Closes Eyes/Hide Handler) - 0(Both) 2. Best Gaze (Lateral Gaze Paresis) - 0(Normal) 3. Visual Field Loss - 0(No visual loss) 4. Facial Palsy - 0(Normal) 5a. Left Arm: Motor (10-second hold) - 0(No drift) 5b. Right Arm: Motor (10-second hold) - 0(No drift) 6a. Left Leg: Motor (5-second hold - always test supine) - 0(No drift) 6b. Right Leg: Motor (5-second hold - always test supine) - 0(No drift) 7. Limb Ataxia (finger/nose \\T\\ heel/garzon - test with eyes open) - 0(Absent) 8. Sensory Loss (pinprick arms/legs/face) - 0(Normal) 9. Best Language: Aphasia (description/naming/reading) - 0(No aphasia) 10. Dysarthria (speech clarity - read or repeat words) - 0(Normal) 11. Extinction and Inattention (visual/tactile/auditory/spatial/personal) - 0(No abnormality) Initials: NIH Stroke Scale - NIH Stroke Score Date: 07/21/2019 Time: 13:04 Total Score = 0 1a. Level of Consciousness (LOC) - 0(Alert) 1b. Level of Consciousness (LOC) (Year \\T\\ Age) - 0(Both) 1c. LOC Commands (Open \\T\\ Closes Eyes/Hide Handler) - 0(Both) 2. Best Gaze (Lateral Gaze Paresis) - 0(Normal) 3. Visual Field Loss - 0(No visual loss) 4. Facial Palsy - 0(Normal) 5a. Left Arm: Motor (10-second hold) - 0(No drift) 5b. Right Arm: Motor (10-second hold) - 0(No drift) 6a. Left Leg: Motor (5-second hold - always test supine) - 0(No drift) 6b. Right Leg: Motor (5-second hold - always test supine) - 0(No drift) 7. Limb Ataxia (finger/nose \\T\\ heel/garzon - test with eyes open) - 0(Absent) 8. Sensory Loss (pinprick arms/legs/face) - 0(Normal) 9. Best Language: Aphasia (description/naming/reading) - 0(No aphasia) 10. Dysarthria (speech clarity - read or repeat words) - 0(Normal) 11. Extinction and Inattention (visual/tactile/auditory/spatial/personal) - 0(No abnormality) Initials: jr8 Signatures: Dispatcher [employer] EDMingo Manning jb1 Saleem Contreras, RN CARLO sg Karen OlsenGwen ramirez, RN David Stiles PA PA jr8 Jennifer Bradshaw, senior sql server dba EKG Tat1 Rosa Mckenna RN RN tw2 Leo Miles RN RN jl7 Corrections: (The following items were deleted from the chart) 11:13 11:00 NIHSS Score: 0 tw2 tw2
--- NOTE | 2019-07-21 13:14 | EDPHYS ---
Physician Documentation [facility] Name: Melanie Kerr Age: 83 yrs Sex: Female : 1935 Arrival Date: 07/21/2019 Time: 10:27 Bed 7 Private MD: ED Physician Rivera Luo HPI: 07/21 13:04 This 83 yrs old Female presents to ER via Ambulatory with complaints of jr8 Slurred Speech. 13:04 The patient presents to the emergency department with a speech or higher order brain jr8 function problem, alexia, that is moderate. Onset: The symptoms/episode began/occurred acutely, yesterday. Context: occurred at home, occurred while the patient was at rest. Associated signs and symptoms: The patient has no apparent associated signs or symptoms. Severity of symptoms: At their worst the symptoms were moderate in the emergency department the symptoms have resolved. Patient's baseline: Neuro: alert and fully oriented, Motor: no deficits, Ambulation: walks without assistance, Speech: normal. Current symptoms: Currently, the patient is not experiencing any symptoms, the patient feels back to baseline, no decreased level of consciousness, no confusion, no dysphasia, no headache, no paralysis, no visual changes. The patient has not experienced similar symptoms in the past. The patient has not recently seen a physician. Historical: - Allergies: 10:40 Codeine (Vomiting); tw2 - Home Meds: 10:40 amlodipine 5 mg tab 1 tab once daily [Active]; glipizide 5 mg Oral tab 1 tab 2 times tw2 per day [Active]; losartan-hydrochlorothiazide 50-12.5 mg Oral tab 1 tab once daily [Active]; levothyroxine 100 mcg tab 1 tab once daily [Active]; metformin 1,000 mg Oral tab 1 tab 2 times per day [Active]; Nexium 20 mg oral cpDR [Active]; potassium chloride 10 mEq Oral TbER 1 tab once daily [Active]; Restasis 0.05 % ophthalmic dpet 1 drop 2 times per day [Active]; Tymols 1 80 mcg shot per day [Active]; - PMHx: 10:40 Diabetes - NIDDM; Hypertension; Hypothyroidism; Sleep Apnea; T12 fracture; tw2 - PSHx: 10:40 L-1 Vertebrae; right knee replacement; cataract; tw2 - Immunization history:: Adult Immunizations. - Social history:: Smoking status: . - Ebola Screening: : Patient denies travel to an Ebola-affected area in the 21 days before illness onset. ROS: 13:04 Eyes: Negative for injury, pain, redness, and discharge, ENT: Negative for injury, jr8 pain, and discharge, Neck: Negative for injury, pain, and swelling, Cardiovascular: Negative for chest pain, palpitations, and edema, Respiratory: Negative for shortness of breath, cough, wheezing, and pleuritic chest pain, Abdomen/GI: Negative for abdominal pain, nausea, vomiting, diarrhea, and constipation, Back: Negative for injury and pain, MS/Extremity: Negative for injury and deformity, Skin: Negative for injury, rash, and discoloration. 13:04 Neuro: Positive for speech changes. Exam: 13:04 Eyes: Pupils equal round and reactive to light, extra-ocular motions intact. Lids and jr8 lashes normal. Conjunctiva and sclera are non-icteric and not injected. Cornea within normal limits. Periorbital areas with no swelling, redness, or edema. ENT: Nares patent. No nasal discharge, no septal abnormalities noted. Tympanic membranes are normal and external auditory canals are clear. Oropharynx with no redness, swelling, or masses, exudates, or evidence of obstruction, uvula midline. Mucous membranes moist. Neck: Trachea midline, no thyromegaly or masses palpated, and no cervical lymphadenopathy. Supple, full range of motion without nuchal rigidity, or vertebral point tenderness. No Meningismus. Cardiovascular: Regular rate and rhythm with a normal S1 and S2. No gallops, murmurs, or rubs. Normal PMI, no JVD. No pulse deficits. Respiratory: Lungs have equal breath sounds bilaterally, clear to auscultation and percussion. No rales, rhonchi or wheezes noted. No increased work of breathing, no retractions or nasal flaring. Abdomen/GI: Soft, non-tender, with normal bowel sounds. No distension or tympany. No guarding or rebound. No evidence of tenderness throughout. Back: No spinal tenderness. No costovertebral tenderness. Full range of motion. Skin: Warm, dry with normal turgor. Normal color with no rashes, no lesions, and no evidence of cellulitis. MS/ Extremity: Pulses equal, no cyanosis. Neurovascular intact. Full, normal range of motion. Neuro: Awake and alert, GCS 15, oriented to person, place, time, and situation. Cranial nerves II-XII grossly intact. Motor strength 5/5 in all extremities. Sensory grossly intact. Cerebellar exam normal. Normal gait. 13:04 Neuro: Orientation: to person, place \T\ time. Mentation: is normal, Memory: is normal, immediate memory is intact, recent memory is intact, remote memory is intact, Cranial nerves: CN I not tested, CN II- XII are normal as tested, extraocular movements are intact, Facial palsy and sensory deficits are absent. Nystagmus is absent. Speech is clear and appropriate. Gag reflex present. Tongue strength is normal, Cerebellar function: is grossly normal, Motor: moves all fours, strength is 5/5 in all extremities, Sensation: is normal, seizure activity, is not displayed by the patient, Abnormal movements: there are no abnormal movements. Vital Signs: 10:40 BP 165 / 71; Pulse 98; Resp 17; Temp 97.3(TE); Pulse Ox 97% on R/A; Weight 68.04 kg tw2 (R); Height 5 ft. 3 in. (160.02 cm) (R); Pain 0/10; 12:00 BP 155 / 72; Pulse 89; Resp 18 S; Pulse Ox 98% on R/A; sg 13:00 BP 146 / 77; Pulse 87; Resp 17 S; Pulse Ox 100% on R/A; Pain 0/10; sg 14:20 BP 142 / 72; Pulse 88; Resp 18 S; Pulse Ox 98% on R/A; Pain 0/10; sg 15:30 BP 144 / 70; Pulse 86; Resp 17; Pulse Ox 98% on R/A; Pain 0/10; sg 16:30 BP 142 / 70; Pulse 80; Resp 17; Temp 97.3; Pulse Ox 98% on R/A; Pain 0/10; sg 10:40 Body Mass Index 26.57 (68.04 kg, 160.02 cm) tw2 NIH Stroke Scale Scores: 10:31 NIHSS Score: 0 tw2 11:41 NIHSS Score: 0 sg 13:04 NIHSS Score: 0 jr8 MDM: 11:53 Patient medically screened. [facility] 13:06 Data reviewed: vital signs, nurses notes, lab test result(s), EKG, radiologic studies, jr8 CT scan, plain films. Data interpreted: Pulse oximetry: on room air is 97 %. Interpretation: normal. Counseling: I had a detailed discussion with the patient and/or guardian regarding: the historical points, exam findings, and any diagnostic results supporting the discharge/admit diagnosis, lab results, radiology results, the need for further work-up and treatment in the hospital. 13:07 ED course: Dr. Angeles consulted and will see patient . 8 13:08 ED course: Although patient is doing well in ED. Patients ABCD2 score shows moderate [facility] risk for conversion to stroke. Inpatient more appropriate at this time for further work up then outpatient. Patient also lives by herself . 07/21 11:49 Order name: Basic Metabolic Panel; Complete Time: 13:02 [facility] 07/21 11:49 Order name: CBC with Diff; Complete Time: 12:27 [facility] 07/21 11:49 Order name: LFT's; Complete Time: 13:02 [facility] 07/21 11:49 Order name: Magnesium; Complete Time: 13:02 [facility] 07/21 11:49 Order name: NT PRO-BNP; Complete Time: 13:02 [facility] 07/21 11:49 Order name: PT-INR [facility] 07/21 11:49 Order name: Troponin (emerg Dept Use Only); Complete Time: 13:02 [facility] 07/21 13:02 Order name: Urine Dipstick--Ancillary (enter results); Complete Time: 13:42 07/21 15:09 Order name: Urinalysis [facility] 07/21 15:09 Order name: CBC with Automated Diff [facility] 07/21 15:10 Order name: CBC with Automated Diff [facility] 07/21 15:10 Order name: Comprehensive Metabolic Panel [facility] 07/21 15:10 Order name: Comprehensive Metabolic Panel [facility] 07/21 15:10 Order name: Magnesium [facility] 07/21 10:56 Order name: CT Head Brain wo Cont; Complete Time: 12:12 ss 07/21 11:49 Order name: XRAY Chest (1 view); Complete Time: 13:42 [facility] 07/21 11:49 Order name: EKG; Complete Time: 11:51 [facility] 07/21 11:49 Order name: Cardiac monitoring; Complete Time: 11:59 jr8 07/21 11:49 Order name: EKG - Nurse/Tech; Complete Time: 12:36 jr8 07/21 11:49 Order name: IV Saline Lock; Complete Time: 12:08 jr8 07/21 13:11 Order name: Carotid Artery Bilateral US; Complete Time: 14:57 jr8 07/21 13:48 Order name: MRA Head Wo Cont; Complete Time: 16:21 [facility] 07/21 13:50 Order name: Brain W/Wo Cont; Complete Time: 16:21 [facility] 07/21 13:50 Order name: MRA Neck W/Wo Cont; Complete Time: 16:21 [facility] 07/21 15:09 Order name: Consistent Carb (ADA) [address] EDMS 07/21 15:10 Order name: Magnesium [facility] 07/21 15:10 Order name: Echo with Doppler [facility] 07/21 15:23 Order name: CKMB Creatine Kinase MB; Complete Time: 15:38 [facility] 07/21 11:49 Order name: Labs collected and sent; Complete Time: 12:08 jr8 07/21 11:49 Order name: O2 Per Protocol; Complete Time: 11:59 jr8 07/21 11:49 Order name: O2 Sat Monitoring; Complete Time: 11:59 jr8 Administered Medications: 12:36 Drug: Aspirin 81 mg Route: PO; jl7 13:20 Follow up: Response: No adverse reaction sg Disposition: 07/22 06:17 Co-signature as Attending Physician, Rivera Luo MD I agree with the assessment and kdr plan of care. Disposition: 07/21/19 13:10 Hospitalization ordered by Vishal Lim for Observation. Preliminary diagnosis is Transient cerebral ischemic attack, unspecified. - Bed requested for Telemetry/MedSurg (observation). - Status is Observation. ss - Condition is Stable. - Problem is new. - Symptoms are resolved. UTI on Admission? No NIH Stroke Scale - NIH Stroke Score Date: 07/21/2019 Time: 10:31 Total Score = 0 1a. Level of Consciousness (LOC) - 0(Alert) 1b. Level of Consciousness (LOC) (Year \T\ Age) - 0(Both) 1c. LOC Commands (Open \T\ Closes Eyes/Bottle Caser) - 0(Both) 2. Best Gaze (Lateral Gaze Paresis) - 0(Normal) 3. Visual Field Loss - 0(No visual loss) 4. Facial Palsy - 0(Normal) 5a. Left Arm: Motor (10-second hold) - 0(No drift) 5b. Right Arm: Motor (10-second hold) - 0(No drift) 6a. Left Leg: Motor (5-second hold - always test supine) - 0(No drift) 6b. Right Leg: Motor (5-second hold - always test supine) - 0(No drift) 7. Limb Ataxia (finger/nose \T\ heel/garzon - test with eyes open) - 0(Absent) 8. Sensory Loss (pinprick arms/legs/face) - 0(Normal) 9. Best Language: Aphasia (description/naming/reading) - 0(No aphasia) 10. Dysarthria (speech clarity - read or repeat words) - 0(Normal) 11. Extinction and Inattention (visual/tactile/auditory/spatial/personal) - 0(No abnormality) Initials: tw2 NIH Stroke Scale - NIH Stroke Score Date: 07/21/2019 Time: 11:41 Total Score = 0 1a. Level of Consciousness (LOC) - 0(Alert) 1b. Level of Consciousness (LOC) (Year \T\ Age) - 0(Both) 1c. LOC Commands (Open \T\ Closes Eyes/Bottle Caser) - 0(Both) 2. Best Gaze (Lateral Gaze Paresis) - 0(Normal) 3. Visual Field Loss - 0(No visual loss) 4. Facial Palsy - 0(Normal) 5a. Left Arm: Motor (10-second hold) - 0(No drift) 5b. Right Arm: Motor (10-second hold) - 0(No drift) 6a. Left Leg: Motor (5-second hold - always test supine) - 0(No drift) 6b. Right Leg: Motor (5-second hold - always test supine) - 0(No drift) 7. Limb Ataxia (finger/nose \T\ heel/garzon - test with eyes open) - 0(Absent) 8. Sensory Loss (pinprick arms/legs/face) - 0(Normal) 9. Best Language: Aphasia (description/naming/reading) - 0(No aphasia) 10. Dysarthria (speech clarity - read or repeat words) - 0(Normal) 11. Extinction and Inattention (visual/tactile/auditory/spatial/personal) - 0(No abnormality) Initials: robert NIH Stroke Scale - NIH Stroke Score Date: 07/21/2019 Time: 13:04 Total Score = 0 1a. Level of Consciousness (LOC) - 0(Alert) 1b. Level of Consciousness (LOC) (Year \T\ Age) - 0(Both) 1c. LOC Commands (Open \T\ Closes Eyes/Bottle Caser) - 0(Both) 2. Best Gaze (Lateral Gaze Paresis) - 0(Normal) 3. Visual Field Loss - 0(No visual loss) 4. Facial Palsy - 0(Normal) 5a. Left Arm: Motor (10-second hold) - 0(No drift) 5b. Right Arm: Motor (10-second hold) - 0(No drift) 6a. Left Leg: Motor (5-second hold - always test supine) - 0(No drift) 6b. Right Leg: Motor (5-second hold - always test supine) - 0(No drift) 7. Limb Ataxia (finger/nose \T\ heel/garzon - test with eyes open) - 0(Absent) 8. Sensory Loss (pinprick arms/legs/face) - 0(Normal) 9. Best Language: Aphasia (description/naming/reading) - 0(No aphasia) 10. Dysarthria (speech clarity - read or repeat words) - 0(Normal) 11. Extinction and Inattention (visual/tactile/auditory/spatial/personal) - 0(No abnormality) Initials: le Signatures: Dispatcher [employer] EDKS Rivera Luo MD MD [facility] Gwen Mike RN RN David Toro PA PA jr8 Rosa Mckenna RN RN tw2 Leo Miles RN RN jl7 Raimundo Nunez, RN RN ja1 Saleem Contreras RN sg Corrections: (The following items were deleted from the chart) 07/21 13:48 13:12 MR STROKE PROTOCOL+MRI.RAD.BRZ ordered. [facility] EDKS 15:52 13:10 Hospitalization Ordered by Vishal Lim MD for Observation. Preliminary ja1 diagnosis is Transient cerebral ischemic attack, unspecified. Bed requested for Telemetry/MedSurg (observation). Status is Observation. Condition is Stable. Problem is new. Symptoms are resolved. UTI on Admission? No. jr8 17:21 15:52 07/21/2019 13:10 Hospitalization Ordered by Vishal Lim MD for ss Observation. Preliminary diagnosis is Transient cerebral ischemic attack, unspecified. Bed requested for Telemetry/MedSurg (observation). Status is Observation. Condition is Stable. Problem is new. Symptoms are resolved. UTI on Admission? No. ja1
[2019-07-21 13:16] LABS: Urine Blood NEGATIVE (NEG); Urine Glucose NEGATIVE (NEG); Urine Protein NEGATIVE (NEG); Urine Specific Gravity 1.015 (1.005-1.030); Urine pH 7.5 (5.0-7.0)
--- NOTE | 2019-07-21 14:42 | P.HP ---
Patient History Date of Service: 07/21/19 Reason for admission: Dysarthria History of Present Illness: Ms Kerr was 83-year-old female with history of diabetes mellitus, hypertension who presented to the ER with complaints of dysarthria the occured last night. She states that she suddenly started speaking gibberish while attempting to talk. This lasted about 1 min. She denies any extremity weakness or facial droop. She experienced the episode only once and no further symptoms since then. Patient spoke with her PCP this morning and was recommended to come to the ER for further evaluation. Allergies codeine Allergy (Unverified 02/20/15 21:27) Unknown Home medications list reviewed: No (Awaiting availability) - Past Medical/Surgical History Diabetic: Yes -: Diabetes -: Hypertension -: VIKTORIYA -: Hypothyroidism -: GERD -: R shoulder -: R knee Review of Systems 10-point ROS is otherwise unremarkable Physical Examination - Physical Exam General: Alert, In no apparent distress, Oriented x3 HEENT: Atraumatic, PERRLA Neck: Supple, 2+ carotid pulse no bruit, JVD not distended Respiratory: Clear to auscultation bilaterally, Normal air movement Cardiovascular: No edema, Normal pulses, Regular rate/rhythm, Normal S1 S2 Gastrointestinal: Normal bowel sounds, Soft and benign, Non-distended, No tenderness, No masses Musculoskeletal: No clubbing, No swelling, No contractures Integumentary: No rashes, No breakdown, No significant lesion Neurological: Normal gait, Normal speech, Normal strength at 5/5 x4 extr - Studies Laboratory Data (last 24 hrs) 07/21/19 12:10: PT 12.5, INR 1.06 07/21/19 12:10: WBC 7.5, Hgb 13.0, Hct 38.5, Plt Count 285 07/21/19 12:10: Sodium 135 L, Potassium 3.9, BUN 18, Creatinine 0.67, Glucose 125 H, Magnesium 1.9, Total Bilirubin 0.4, AST 17, ALT 23, Alkaline Phosphatase 81 Assessment and Plan - Plan Ms Kerr is a 83-year-old female who presented to the hospital with dysarthria. #Probable TIA-symptoms have completely resolved. CT brain is unremarkable. -MRI brain, MRA head and neck ordered. -echocardiogram. -Troponin is negative -aspirin & statin -Based on ABCD2 score- 4; patient is moderate risk. -Neurologist consulted by ED #DM- check hgba1c. -patient recalls that she is on metformin at home, consider resuming appropriately -BG AC & HS and cover with ISS # Hypertension- resume home meds once loaded to MAR #VIKTORIYA- uses CPAP at bedtime - will order resp care #Hypothyroidism- Continue levothyroxine DVT ppx- SCD Patient is full code. Dispo- obs admission for possible Dc in a.m Plan to discharge in: 24 Hours - Advance Directives Does patient have a Living Will: No Does patient have a Durable POA for Healthcare: No - Code Status/Comfort Care Code Status Assessed: Yes Code Status: Full Code
--- NOTE | 2019-07-21 14:43 | RAD REPORT ---
EXAM DESCRIPTION: - CP - 07/21/2019 2:23 pm CLINICAL HISTORY: TIA TIA, CVA symptomology COMPARISON: No comparisons TECHNIQUE: Real-time sonographic evaluation of both carotid systems was performed. Doppler interroga tion was performed with waveform tracing bilaterally. FINDINGS: Normal high resistance waveforms are noted in both external carotid arteries. The common c arotid arteries and internal carotid arteries show normal low resistance waveforms. Mild focal hard plaque is seen right distal common carotid artery. Elsewhere, no significant carotid plaquing is evident. Peak systolic and end diastolic velocity values and the ICA/CCA ratios are in th e non-hemodynamically significant range. Antegrade flow seen in both vertebral arteries. IMPRESSION: Mild focal hard plaque is seen distal right common carotid artery. No evidence of a hemodynamically significant stenosis.
--- NOTE | 2019-07-21 14:55 | EKG ---
Test Date: 2019-07-21 Test Time: 12:22:02 Credentialing Manager: JOSE L MEASUREMENT RESULTS: Intervals: Rate: 91 NC: 168 QRSD: 76 QT: 358 QTc: 440 [place]: P: 43 NC: 168 QRS: -48 T: 20 INTERPRETIVE STATEMENTS: Normal sinus rhythm Left anterior fascicular block Anterolateral infarct, age undetermined Abnormal ECG Compared to ECG 05/15/2011 09:57:45 Left anterior fascicular block now present Left-axis deviation no longer present Myocardial infarct finding still present Electronically Signed On 07-21-19 14:54:51 STILL PUMP OPERATOR by Conner Capps
[2019-07-21] MEDS ORDERED: ACETAMINOPHEN 500 MG TAB PO PRN (15:00)
[2019-07-21] MEDS ORDERED: ONDANSETRON 4 MG/2 ML VIAL IV PRN (15:00)
--- NOTE | 2019-07-21 15:30 | RAD REPORT ---
EXAM DESCRIPTION: MRI - Brain W/Wo Cont - 07/21/2019 3:18 pm CLINICAL HISTORY: tia COMPARISON: July 21, [address] TECHNIQUE: Axial, sagittal, and coronal magnetic images of the brain were obtained. 20 cc MultiHance administered intravenously FINDINGS: Mild signal within periventricular, deep and subcortical white matter probably ischemic c hanges secondary to small vessel disease The ventricles are normal in caliber. Diffusion-weighted/ ADC mapping sequences do not demonstrate evidence of an acute infarction. No abnormal enhancement within the brain is seen. An extra-axial fluid collection is not noted. Fluid within the sinuses/mastoids is not seen IMPRESSION: No acute abnormality displayed
--- NOTE | 2019-07-21 15:41 | RAD REPORT ---
EXAM DESCRIPTION: MRI - MRA Neck W/Wo Cont - 07/21/2019 3:18 pm CLINICAL HISTORY: TIA COMPARISON: None. TECHNIQUE: Magnetic resonance angiogram of the neck was performed. 19 cc MultiHance was administered intravenously. 3D MIPS reconstruction performed FINDINGS: Mild plaque is present within the common carotid, internal carotid and external carotid ar teries bilaterally. Mild plaque involves the proximal right subclavian artery The vertebral arteries are codominant without significant abnormality. An aneurysm is not noted The vertebral arteries are codominant without visualization of an abnormality. IMPRESSION: Mild plaque without visualization of a significant abnormality NASCET criteria used. Mild 0-49% stenosis Moderate 50-69% stenosis Severe 70-99% stenosis
--- NOTE | 2019-07-21 15:53 | RAD REPORT ---
EXAM DESCRIPTION: MRI - MRA Head Wo Cont - 07/21/2019 3:18 pm CLINICAL HISTORY: tia COMPARISON: None. TECHNIQUE: Magnetic resonance angiogram was performed. 3D MIPS reconstruction performed FINDINGS: The anterior cerebral, middle cerebral, left posterior cerebral, distal internal carotid a nd basilar arteries do not demonstrate a significant stenosis. Short-segment narrowing of the right posterior cerebral artery probably chronic. The right A1 segment is hypoplastic which is a normal variant An aneurysm is not displayed. IMPRESSION: No significant abnormalities dissplayed
[2019-07-21] MEDS ORDERED: ENOXAPARIN 40 MG/0.4 ML SQ SCH (16:00)
[2019-07-21 18:50] VITALS: BMI 26.5
[2019-07-21] MEDS ORDERED: AMLODIPINE 5 MG TAB PO SCH (21:00)
[2019-07-21] MEDS ORDERED: ATORVASTATIN 20 MG TAB PO SCH (21:00)
[2019-07-21] MEDS ORDERED: VIT E MIX PO SCH (21:00)
[2019-07-21] MEDS ORDERED: HOME MED 1 EA UNK (Metformin Hcl [Glucophage] 1 TAB) PO SCH (21:00)
[2019-07-21] MEDS ORDERED: UBIDECARENONE PO SCH (21:00)
[2019-07-21] MEDS ORDERED: VIT E PO SCH (21:00)
[2019-07-21] MEDS ORDERED: HOME MED 1 EA UNK (Ascorbic Acid [Vitamin C] 1 TAB) PO SCH (21:00)
[2019-07-21] MEDS: FAMOTIDINE 20 MG TAB PO SCH (21:20)
[2019-07-21] MEDS: ENOXAPARIN 40 MG/0.4 ML SQ SCH (21:22)
[2019-07-21 21:26] VITALS: O2SAT 96
[2019-07-22 05:09] LABS: Absolute Lymphocytes (CBC) 1.2 K/uL (0.7-4.9); Basophils % 0.9 % (0-1.3); Hematocrit 35.6 % (36.0-45.0); Lymphocytes % 18.6 % (15.3-44.8); MPV 8.2 fL (7.6-11.3); RBC Red Blood Cell Count 3.94 M/uL (3.86-4.86)
[2019-07-22 05:23] LABS: ALT/SGPT 23 U/L (12-78); AST/SGOT 17 U/L (15-37); Albumin 3.4 g/dL (3.4-5.0); Alkaline Phosphatase 64 U/L (45-117); BUN Blood Urea Nitrogen 15 mg/dL (7-18); Bicarbonate 30 mmol/L (21-32); Bilirubin Total 0.4 mg/dL (0.2-1.0); Glucose Level 111 mg/dL (74-106); Magnesium 1.8 mg/dL (1.8-2.4); Potassium 3.7 mmol/L (3.5-5.1); Protein, Total 6.3 g/dL (6.4-8.2); Sodium Level 140 mmol/L (136-145)
[2019-07-22] MEDS ORDERED: LEVOTHYROXINE SOD 0.1 MG TAB PO SCH (06:00)
[2019-07-22] MEDS ORDERED: glipiZIDE 5 MG TAB PO SCH (07:30)
[2019-07-22] MEDS ORDERED: METFORMIN HCL 500 MG TAB PO SCH (08:00)
[2019-07-22] MEDS: ENOXAPARIN 40 MG/0.4 ML SQ SCH (08:24)
[2019-07-22] MEDS: FAMOTIDINE 20 MG TAB PO SCH (08:25)
[2019-07-22] MEDS ORDERED: VITAMIN E PO SCH (09:00)
[2019-07-22] MEDS ORDERED: ASCORBIC ACID 500 MG TABLET PO SCH (09:00)
[2019-07-22] MEDS ORDERED: ABALOPARATIDE 80 MCG SQ SCH (09:00)
[2019-07-22] MEDS ORDERED: ASPIRIN 81 MG CHEWABLE TABLET PO SCH (09:00)
[2019-07-22] MEDS ORDERED: HOME MED 1 EA UNK (Cholecalciferol (Vitamin D3) [Vitamin D3] 1 TAB) PO SCH (09:00)
[2019-07-22] MEDS ORDERED: VITAMIN E 400 IU CAP PO SCH (09:00)
[2019-07-22] MEDS ORDERED: LOSARTAN/HCTZ 50-12.5 PO SCH (09:00)
[2019-07-22] MEDS ORDERED: VITAMIN D 5,000 UNIT CAP PO SCH (09:00)
[2019-07-22] MEDS ORDERED: VITAMIN B COMPLEX 1 CAP PO SCH (09:00)
[2019-07-22 09:40] LABS: HDL Cholesterol 73 mg/dL (40-60); LDL Cholesterol, Calculated 98 (<130)
--- NOTE | 2019-07-22 12:23 | ECHO ---
HEIGHT: 5 ft 3 in WEIGHT: 150 lb 0 oz DATE OF STUDY: 07/22/[address]: Vishal Lim 2-DIMENSIONAL: YES M.MODE: YES DOPPLER: YES COLOR FLOW: YES TDS: PORTABLE: DEFINITY: BUBBLE STUDY: DIAGNOSIS: SHORTNESS OF BREATH, HYPERVOLEMIA CARDIAC HISTORY: CATHERIZATION: NO SURGERY: NO PROSTHETIC VALVE: NO PACEMAKER: NO MEASUREMENTS (cm) DIASTOLIC (NORMALS) SYSTOLIC (NORMALS) IVSd 1.0 (0.6-1.2) LA Diam 3.7 (1.9-4.0) LVEF 73% LVIDd 4.5 (3.5-5.7) LVIDs 2.6 (2.0-3.5) %FS 42% LVPWd 1.1 (0.6-1.2) Ao Diam 3.0 (2.0-3.7) 2 DIMENSIONAL ASSESSMENT: RIGHT ATRIUM: NORMAL LEFT ATRIUM: NORMAL RIGHT VENTRICLE: NORMAL LEFT VENTRICLE: NORMAL TRICUSPID VALVE: NORMAL MITRAL VALVE: NORMAL PULMONIC VALVE: NORMAL AORTIC VALVE: NORMAL PERICARDIAL EFFUSION: NONE AORTIC ROOT: NORMAL LEFT VENTRICULAR WALL MOTION: NORMAL DOPPLER/COLOR FLOW: NORMAL COMMENTS: NORMAL 2-DIMENSIONAL ECHOCARDIOGRAM WITH DOPPLER. NO WALL MOTION ABNORMALITY. NO EFFUSION. TECHNOLOGIST: TOMAS ARNOLD
[2019-07-22 12:32] VITALS: BP 155/70; TEMP 97.3
--- NOTE | 2019-07-23 05:33 | DS ---
Date of Discharge: 07/22/2019 Consultants: None. Discharge Diagnoses: 1. Transient ischemic attack, cerebrovascular accident ruled out. 2. Diabetes mellitus type 2, [id number] with hyperglycemia. 3. Essential hypertension. 4. Obstructive sleep apnea, on CPAP. 5. Hypothyroidism. Hospital Course: Patient is an 83-year-old female with history of diabetes, hypertension, comes in with dysarthria, started suddenly, and lasted less than 1 minute. Patient came in for further evaluation the following morning. The patient's symptoms had resolved that same night. She was admitted for CVA workup. Her MRI of the brain was negative for any acute CVA. Neck MRA showed mild plaque without visualization of significant abnormality. Her initial head CT scan in the ER was negative for any acute changes. MRA of the brain was also done, which did not show any significant abnormalities. No aneurysm. Carotid artery ultrasound also did not show any hemodynamically significant stenosis. There was mild focal heart plaque seen in the distal right common carotid artery. Echocardiogram was also done, which showed an EF of 73%. Overall, patient did well, she was able to ambulate well and work well with PT. She was then cleared for discharge. Case was discussed with neurologist, Dr. Angeles, who recommended outpatient followup in his office. Medications: As per medication reconciliation list. Followup: With PCP in 2-3 days. Follow up with neurologist, Dr. Angeles, in 1 week. Return to ER for worsening condition. Diet: Heart healthy. Activity: As tolerated. Physical Examination: General: Awake, alert, and oriented x3, elderly female. CV: S1, S2. Respiratory: Moving air well bilaterally. Abdomen: Abdomen is soft, nontender, nondistended. Positive bowel sounds. Extremities: No clubbing, cyanosis, or edema. Neurologic: Nonfocal. Speech is normal. No facial asymmetry. Code status: Full SA/MODL Voice ID: [id number] Report ID: [id number] MTDD
== END 2019-07-22 13:52 | disposition home or self-care (01) ==
LOC: ER 10:24 → ERHOLD 15:01 → 2ND 16:51
PROVIDERS: ADMIT Hospitalist; ATTEND Hospitalist
DX: G45.9 Transient cerebral ischemic attack, unspecified (principal); E11.65 Type 2 diabetes mellitus with hyperglycemia; I10 Essential (primary) hypertension; G47.33 Obstructive sleep apnea (adult) (pediatric); E03.9 Hypothyroidism, unspecified
CPT/HCPCS: 93005; 93306; 85025 ×2; 80048; 36415; 83735 ×2; 85610; 80061; 82947 ×3; 80076; 81003; 84484; 82553; 80053; 83880; 70450; 71045; 93880; 70553; 70544; 70549; 97110; 97112; 97116; 97161; 97530; 94660; 99285; A9577; J1650 ×2; G0378 ×3

== ENCOUNTER 2022-05-04 16:28 | Emergency (ER) | payer OTHER ==
--- OUTSIDE RECORDS SUMMARY | 2022-05-04 16:30 | XMS REPORT | Continuity of Care Document ---
:1935 Author Organization [facility] t Address [address] [place] [address] Care Team Providers Name Role Phone Anum Cruz Primary Care Physician [phone] Eufemia_FEMI Attending Clinician Unavailable Ariane Bazzi Attending Clinician [phone] Gabrielle SOLIZ, Manohar Nelson Attending Clinician KAREN MARINO Attending Clinician Unavailable HIPOLITO GANN Attending Clinician Unavailable ASKED, NO Attending Clinician Unavailable Eufemia_FEMI Admitting Clinician Unavailable Payers Payer Name Policy Type Policy Number Effective Date Expiration Date S ojcelinenitin [facility] [id number] 2021 (MEDICARE 00:00:00 REPLACEMENT/ADVANTA GE - PPO) UNITED MEDICARE HMO [id number] 2020 00:00:00 [employer] MEDICARE ADV [id number] 2018 00:00:00 Problems Condition Condition Condition Status Onset Resolution Last Treating Co mments Source Name Details Category Date Date Treatment Clinician Date VIKTORIYA on VIKTORIYA on Disease Active 2016-08 [facility] CPAP CPAP 0-17 [facility] 00:00: Hospita 00 l Pulmonary Pulmonary Disease Active Met [facility] emphysema emphysema [address] 00:00: Hospita 00 l Essential Essential Disease Active 2015-08 [facility] hypertensi hypertensi 1-30 st on on 00:00: Hospita 00 l VIKTORIYA VIKTORIYA Disease Active [facility] (obstructi (obstructi [address] ve sleep ve sleep 00:00: Hospit a apnea) apnea) 00 l AR AR Disease Active [facility] (allergic (allergic [address] rhinitis) rhinitis) 00:00: Hosp sonali 00 l GERD GERD Disease Active [facility] (gastroeso (gastroeso [address] phageal phageal 00:00: Hospita reflux reflux 00 l disease) disease) Allergies, Adverse Reactions, Alerts Allergy Allergy Status Severity Reaction(s) Onset Inactive Treating Comm ents Source Name Type Date Date Clinician Propoxyp Propensi [facility] N-Acetam adverse 00:00: Medical inophen reaction 00 Center s PROPOXYP Allergy Active [facility] 4[facility]16 [facility] N-ACETAM 00:00: Medical INOPHEN 00 Center codeine DA Active [place] [facility] 8[facility]03 [place] 00:00: Orthope 00 dic Hospita l Codeine Drug Active Diarrhea, Other [facility] Allergy Other (See 613 reaction( Radha kes Comments) 00:00: s): GI Medical 00 Intoleran Center ce Codeine Propensi Active GI Methodi ty to Intolerance 6-13 st adverse 00:00: Hospita reaction 00 l s to drug Other Propensi Active Darvocet Method i ty to 6-13 st adverse 00:00: Hospita reaction 00 l s CODEINE Allergy Active Diarrhea [facility] 00:[facility]: Medical 00 Center NO KNOWN Allergy Active [facility] S Family History Family Member Diagnosis Comments Start Date Stop Date Source Natural father Cancer [facility] Natural mother [facility] Natural son Sleep disorder [facility] Social History Social Habit Start Date Stop Date Quantity Comments Source History SDOH [facility] Alcohol Comment Medical C enter History SDOH [facility] Alcohol Std Drinks Medica l Center History SDOH [facility] Alcohol Binge Medical [address] [facility] Alcohol intake 2021-10-31 2021-10-31 Current [facility] 00:00:00 00:00:00 non-drinker of Hospital alcohol (finding) Tobacco use and 2019-12-23 2019-12-23 Never used AYDEE Rosales exposure 00:00:00 00:00:00 Medical Center History SDOH 2019-12-23 2019-12-23 1 AYDEE Ya Alcohol Frequency 00:00:00 00:00:00 Medical Center Sex [birth year] AYDEE Rosales 00:00:00 00:00:00 Medical Center Smoking Status Start Date Stop Date Source Never smoked tobacco [facility] Medications Ordered Filled Start Stop Current Ordering Indication Dosage Frequency Signature Comments Components Source Medication Medication Date Date Medication? Clinician (SIG) Name Name dagoberto 2022- No 1{spray Q.25D 1 spray M ethodi (NASALCHROM 10-31 } into each st ) 5.2 00:00: 04:59 nostril 4 Hospit a mg/spray (4 00 :00 (four) l %) nasal times a spray day. denosumab Yes 60mg Q180D Inject 60 Me [facility]odi (PROLIA) 60 9-[address] mg/mL 14:32: the skin Hospita syringe 28 every 6 l syringe (six) months. telmisartan Yes 20mg QD Take 20 mg [facility] (MICARDIS) 9-[address] 20 MG 14:32: daily. Hospita tablet 28 l famotidine Yes 20mg Q.5D Take 20 mg M ethodi (PEPCID) 20 9-[address] MG tablet 14:32: (two) Hospita 28 times a l day. aspirin Yes 81mg QD Take 81 mg Meth marco (ECOTRIN) 9-[address] 81 MG 14:32: daily. Hospita enteric 28 l coated tablet levothyroxi Yes 100ug Take 100 M ethodi ne 9-[address] (SYNTHROID, 14:10: mouth. For Hospita LEVOTHROID) 22 6 days and l 100 MCG 1/2 tablet tablet for 1 day metFORMIN 2020-0 Yes 1000mg Q.5D Take 1,000 [facility] (GLUCOPHAGE 9-[address] ) 1000 MG 14:10: mouth 2 Hospi ta tablet 22 (two) l times a day with meals. glipiZIDE 2020-0 Yes 5mg Q.5D Take 5 mg Met [facility]odi (GLUCOTROL) 9-[address] 5 MG tablet 14:10: (two) Hospi ta 22 times a l day before meals. potassium 1-0 Yes 10meq Q.5D Take 10 Meth [facility] chloride 9-[address] (K-DUR,KLOR 14:10: mouth 2 Hos chacha -CON) 10 22 (two) l MEQ CR times a tablet day. amLODIPine 2020-0 Yes 5mg QD Take 5 mg [facility] (NORVASC) 5 -[address] mg tablet 14:10: daily. Hospit a 22 l calcium 2020-0 Yes Take by [facility] carbonate 9-[address] (CALCIUM 14:10: Calcium Hospit a 500 ORAL) 22 l ranitidine 2020-0 Yes 150mg Q.5D Take 150 Me [facility] (ZANTAC) 9-[address] 150 MG 14:10: mouth 2 Hospita tablet 22 (two) l times a day. loratadine 2020-0 Yes 10mg QD Take 10 mg M ethodi (CLARITIN) 9-[address] 10 mg 14:10: daily. Hospita tablet 22 l b complex 2020-0 Yes 1{tbl} QD Take 1 Meth mar[facility] vitamins (B 9-[address] COMPLEX 1) 14:10: mouth Hospit a tablet 22 daily. l coenzyme 2021-0 Yes 100mg QD Take 100 Meth [facility]co Q10 9-[address] (COQ-10) 14:10: mouth Hospita 100 mg 22 daily. l capsule cholecalcif 2020-0 Yes 1{tbl} QD Take 1 [facility] lacie, -[address] vitamin D3, 14:10: mouth Hospi ta (VITAMIN 22 daily. l D3) 5,000 unit tablet vitamin E 2020-0 Yes 400U QD Take 400 Meth marco 400 UNIT 9-[address] capsule 14:10: mouth Hospita 22 daily. l ascorbic 2021-0 Yes 1000mg QD Take 1,000 M ethodi acid, 9-[address] vitamin C, 14:10: mouth Hospit a (vitamin C) 22 daily. l 1000 MG tablet carboxymeth Yes Apply to Me thodi ylcellulose 9-[address] sodium 14:10: needed. Hospita (THERATEARS 22 l OPHT) vitamin B Yes 1{tbl} Take [address] complex (B 4-16 tablet by Luke s COMPLEX 15:06: mouth. Medical VITAMINS 12 Center ORAL) calcium Yes Take by [facility] carbonate-v 4-16 mouth. [facility]ukes itamin D3 15:06: Medical [address] [place] [address] mg(1,250mg) -400 unit Tab cholecalcif Yes Take by [facility] lacie, 4-16 mouth. [facility]ukes vitamin D3, 15:06: Medica l 25 mcg 12 Center (1,000 unit) capsule COQ10, Yes Take by [facility] LIPOSOMAL 4-16 mouth. [facility]ukes UBIQUINOL, 15:06: Medical ORAL Center vitamin E Yes 400U Take [address] 400 UNIT 4-16 Units by Lukes capsule 15:06: mouth. [place] [address] Center levothyroxi Yes 100ug Take [address] ne 4-16 mcg by [facility]ukes (SYNTHROID, 15:06: mouth as Me dical LEVOTHROID) [address] 100 MCG tablet metFORMIN Yes 1000mg Take 1,[address] (GLUCOPHAGE 4-16 mg by Lukes ) 1000 MG 15:06: mouth 2 Medic al tablet 12 (two) Center times daily with breakfast and dinner. glipiZIDE Yes 5mg Take [address] (GLUCOTROL) 4-16 by mouth 2 Radha kes 5 MG tablet 15:06: (two) Medic al 12 times Center daily before meals. telmisartan 0 Yes 20mg QD Take [address] (MICARDIS) 4-16 by mouth Lukes 20 MG 15:06: daily. Medical tablet 12 Center potassium 0 Yes QD Take by CHI S t chloride 4-16 mouth Lukes (MICRO-K) 15:06: daily. Medica l 10 mEq CR 12 Center capsule amLODIPine Yes 5mg QD Take [address] (NORVASC) 5 4-16 by mouth Luke s MG tablet 15:06: daily. Medica l 12 Center pepsin/bile Yes Take by [facility] /pancreat/b 4-16 mouth. [facility]ukes etai/pap 15:06: Medical (PEPSIN-MARKY 12 Center E-PANCRE-BE TAINE-PAP ORAL) famotidine Yes 20mg Q.5D Take [address] (PEPCID) 20 4-16 by mouth 2 Radha kes MG tablet 15:06: (two) Medical 12 times Center daily. aspirin 81 Yes 81mg QD Take [address] MG EC 4-16 by mouth [facility]ukes tablet 15:06: daily. [address] denosumab 2019-[address] (Prolia) 60 1-02 Lukes mg/mL Syrg 00:00: Medical 00 [place] UNIFINE Yes Type [address] PENTIPS 31 4-09 diabetes Lukes gauge x 00:00: mellitus Medica l 16" Ndle 00 with Center diabetic neuropathy, without long-term current use of insulin ([facility]) TYMLOS 80 Yes 80ug QD Inject 80 Met hodi mcg (3,120 8-[address] mcg/1.56 00:00: the skin Hospi ta mL) pen 00 nightly. l injector Immunizations Ordered Immunization Filled Immunization Date Status Commen ts Source Name Name Zoster Vaccine 2021-08-20 Completed [facility] Recombinant 00:00:00 [facility] Zoster 2021-07-09 Completed [facility] 00:00:00 [facility] Zoster Vaccine 2021-06-12 Completed [facility] Recombinant 00:00:00 [facility] PFIZER COVID-19 MRNA 2021-05-16 Completed Meth odist VACCINATION 00:00:00 Hospital FLUZONE HIGH-DOSE PF 2021-05-02 Completed Meth odist 00:00:00 [facility] PFIZER COVID-19 MRNA 2020-10-07 Completed Meth odist VACCINATION 00:00:00 [facility] PFIZER COVID-19 MRNA 2020-09-16 Completed Meth odist VACCINATION 00:00:00 [facility] FLUZONE HIGH-DOSE PF 2019-05-02 Completed Meth odist 00:00:00 [facility] Pneumococcal 2014-12-28 Completed [facility] Conjugate 00:00:00 Hospital Vital Signs Vital Name Observation Time Observation Value Comments Source HEIGHT 2020-11-23 13:05:00 154.9 cm WEIGHT 2020-11-23 13:05:00 64.139 kg HEIGHT 2020-08-31 13:44:00 154.9 cm WEIGHT 2020-08-31 13:44:00 65.772 kg HEIGHT 2020-06-29 14:10:00 154.9 cm WEIGHT 2020-06-29 14:10:00 66.225 kg WEIGHT 2020-04-27 00:00:00 68.04 kg HEIGHT 2020-04-27 00:00:00 154.9 cm HEIGHT 2020-03-03 00:00:00 154.9 cm WEIGHT 2020-03-03 00:00:00 68.04 kg HEIGHT 2020-02-24 00:00:00 152.4 cm WEIGHT 2020-02-24 00:00:00 68.04 kg WEIGHT 2019-12-23 00:00:00 68.04 kg HEIGHT 2019-12-23 00:00:00 152.4 cm Heart rate 2021-10-31 18:19:00 81 /min [facility] Oxygen saturation in 2021-10-31 18:19:00 95 /min [facility] Arterial blood by Pulse oximetry Procedures This patient has no known procedures. Plan of Care Planned Activity Planned Date Details Comments Source Future Scheduled 2022-04-30 HEPATITIS B VACCINES Met [facility] Test 16:10:48 (1 of 3 - 3-dose series) [code = HEPATITIS B VACCINES (1 of 3 - 3-dose series)] Future Scheduled 2022-04-30 65+ [facility] 16:10:48 VACCINE (1 - PCV) [code = 65+ PNEUMOCOCCAL VACCINE (1 - PCV)] Future Scheduled 2022-04-30 COVID-19 VACCINE (4 - Me [facility] Test 16:10:48 Booster for Pfizer series) [code = COVID-19 VACCINE (4 - Booster for Pfizer series)] Future Scheduled 2022-04-30 INFLUENZA VACCINE Method [facility] Hospital Test 16:10:48 [code = INFLUENZA VACCINE] Future Scheduled 2022-04-10 INFLUENZA VACCINE (#1) [facility] Test 00:00:00 [code = INFLUENZA Medical Ce nter VACCINE (#1)] Future Scheduled 2021-08-[address] [facility] Test 00:00:00 (12+) [code = Medical Center DEPRESSION SCREENING (12+)] Future Scheduled 2021-08-10 FALLS RISK SCREENING [facility] Test 00:00:00 [code = FALLS RISK Medical C enter SCREENING] Future Scheduled 2019-12-[address] [facility] Test 00:00:00 measurement Medical Center (procedure) [code = 52274994] Future Scheduled 2019-08-[address] [facility] Test 00:00:00 WELLNESS (YEAR 2 or Medical Center FIRST YEAR if no IPPE) [code = MEDICARE ANNUAL WELLNESS (YEAR 2 or FIRST YEAR if no IPPE)] Future Scheduled 1986 SHINGLES VACCINES ([address] [facility] Test 00:00:00 of 2) [code = SHINGLES Medic al Center VACCINES (1 of 2)] Future Scheduled 1955 DTAP/TDAP/TD VACCINES [facility] Test 00:00:00 (1 - Tdap) [code = Medical C enter DTAP/TDAP/TD VACCINES (1 - Tdap)] Future Scheduled 1946 DIABETIC EYE EXAM [facility] Test 00:00:00 [code = DIABETIC EYE Medical Center EXAM] Future Scheduled 1946 Urine screening for [facility] Test 00:00:00 protein (procedure) [facility] Center [code = 900593001] Future Scheduled 1942 PNEUMOCOCCAL 65+ Y[facility] Test 00:00:00 (1 - PCV) [code = Medical Ce nter PNEUMOCOCCAL 65+ YRS (1 - PCV)] Future Scheduled 1937-02-02 COVID-19 VACCINE (#1) [facility] Test 00:00:00 [code = COVID-[address] VACCINE (#1)] Future Scheduled 1935 DXA SCAN [code = DXA [facility] Test 00:00:00 SCAN] Medical Center Encounters Start End Encounter Admission Attending Care Care Encounter Source Date/Time Date/Time Type Type Clinicians Facility Department ID 2022-03-08 2022-03-08 Outpatient FOG_Zumwalt AOSM AO [id number] Lesli 00:00:00 00:00:00 _Angi [id number] [facility] 2022-01-20 2022-01-20 Outpatient FOG_Zumwalt AOSM AOSM [id number] Lesli 02:38:00 02:38:00 _Angi [id number] [facility] 2022-01-20 2022-01-20 Outpatient Monla, AOSM AOSM [id number] e-f 00:00:00 00:00:00 Carlosdemario Dwayne [id number] 2021-11-08 2021-11-08 Outpatient FOG_Zumwalt AOSM AOSM [id number] Lesli 12:16:00 12:16:00 _Angi [id number] Orth [facility] 2021-10-31 2021-10-31 Office Anthony, 1.2.840.1 [id number] [facility] 13:00:00 13:20:42 Visit Sunees 76996.1.1 438 [facility] 3.430.2.7 Hospit a .3.768581 l .8 2021-10-31 2021-10-31 Travel 1.2.840.1 [id number] [facility] 00:00:00 00:00:[address] 3.430.2.7 0.2.7.3.698 Ho spita .3.486944 084.8 l .8 2021-10-31 2021-10-31 Outpatient ANTHONY, [facility] [id number] [place] 00:00:00 00:00:00 SUNEESH [address] 2021-05-02 2021-05-02 Outpatient ANTHONY, [facility] [id number] [place] 00:00:00 00:00:00 SUNEESH [address] 2021-05-02 2021-05-02 Outpatient [facility] [id number] [place] 00:00:00 00:00:00 462 Method i 2021-05-02 2021-05-02 Outpatient ANTHONY, [facility] [id number] [place] 00:00:00 00:00:00 [facility] [address] 2021-01-25 2021-01-25 Outpatient [facility] [id number] 00:00:00 00:00:00 [facility] 2020-11-23 2020-11-23 Outpatient [facility] [id number] 00:00:00 00:00:00 [facility] 2020-11-02 2020-11-02 Outpatient [facility] [id number] 00:00:00 00:00:00 [facility] 2020-10-29 2020-10-29 Outpatient ANTHONY, [facility] [id number] [place] 00:00:00 00:00:00 [facility] [address] 2020-10-07 2020-10-07 Outpatient ROBBEN, [facility] [id number] [place] 00:00:00 00:00:00 HIPOLITO Horton3 Vt [facility] [address] 2020-09-16 2020-09-16 Outpatient ASKED, NO [facility] [id number] [place] 00:00:00 00:00:[address] 2020-08-31 2020-08-31 Outpatient [facility] [id number] 00:00:00 00:00:00 [facility] 2020-06-29 2020-06-29 Outpatient [facility] [id number] 00:00:00 00:00:00 [facility] 2020-06-29 2020-06-29 Outpatient [facility] [id number] 00:00:00 00:00:00 [facility] 2020-05-08 2020-05-08 Outpatient ANTHONY, [facility] [id number] [place] 00:00:00 00:00:00 SUNEES [address] 2020-04-27 2020-04-27 Outpatient [facility] [id number] 00:00:00 00:00:00 [facility] 2020-03-03 2020-03-03 [id number] [facility] 13:43:00 13:43:00 2020-02-24 2020-02-24 Outpatient [facility] [id number] 00:00:00 00:00:00 [facility] 2019-12-28 2019-12-28 Outpatient GABRIELLE [facility] [id number] [place] 00:00:00 00:00:00 SUNEES [address] 2019-12-23 2019-12-[address] [id number] 00:00:00 00:00:00 [facility] Results Test Description Test Time Test Comments Results Result Sourc e Comments - MRI L-SPINE W/O 2019-03-14 Patient Name: CONT 12:20:00 WINIFRED KERR Unit No: [id number] EXAMS: CPT CODE: [id number] MRI L-SPINE W/O CONT 02273 MRI OF THE LUMBAR SPINE: DIAGNOSIS: 1. [...] Holguin MD Technologist: Mirian Holliday(R) Transcribed D/ (1220) CelinaGVG [facility] Orthopedic NAME: WINIFRED KERR [address] [facility] PHYS: Joshua Kaur : 1935 AGE: 83 SEX: F [place] [address] LOC: Y.MRI PHONE #: [phone] EXAM DATE: 03/12/2019 STATUS: DEP CLI FAX #: [phone] RAD #: D/C DT PAGE 1 Signed Report Patient Name: WINIFRED KERR Unit No: [id number] EXAMS: CPT CODE: [id number] MRI L-SPINE W/O CONT 10849 (Continued) Orig Print D/T: S: 03/14/2019 (1223) [facility] NAME: WINIFRED KERR [address] [facility] PHYS: Joshua Kaur : 1935 AGE: 83 SEX: F [place] [address] LOC: Y.MRI PHONE #: [phone] EXAM DATE: 03/12/2019 STATUS: DEP CLI FAX #: [phone] RAD #: D/C DT PAGE 2 Signed Report
[2022-05-04] MEDS ORDERED: ACETAMINOPHEN 325 MG TABLET ONE (17:12)
--- NOTE | 2022-05-04 18:08 | RAD REPORT ---
EXAM DESCRIPTION: CT - Head C Spine Cap Wo Con - 05/04/2022 5:39 pm CLINICAL HISTORY: fall, head and neck injury, chest pain, abdominal pain, history of T12 fracture COMPARISON: Clavicle Left dated 05/04/2022; Humerus Left dated 05/04/2022; Thorax W/ Con dated 018 TECHNIQUE: Axial [address] head images were obtained. Axial [address] cervical spine images were obtain ed with sagittal and coronal reconstruction images reviewed. Axial 5 mm images of the chest, abdomen and pelvis were obtained. All CT scans are performed using dose optimization technique as appropriate and may include automated exposure control or mA/KV adjustment according to patient size. FINDINGS: No intracranial hemorrhage, mass or edema. No midline shift or abnormal fluid collection. Mastoid air cells and paranasal sinuses are clear. No skull fracture. Atrophy changes are mild to mo derate in severity for age with ventricles in proportion. Mild chronic ischemic change seen in the ce rebral hemispheres. Cervical bodies are normal in height and alignment.Facet joint degenerative changes are present at mu ltiple levels.No fracture or acute bone finding.C6-7 disc space narrowing present.No prevertebral sof t tissue thickening or paraspinal mass.Central canal detail is inherently limited on CT imaging. Lung base scarring changes are present. No suspicious lung parenchymal process. No mediastinal cornelius minerva and the aorta and pulmonary arteries are unremarkable. No chest will mass or abnormal axillary f inding. No displaced rib fractures are present. There is contusion and edema change of the upper left chest at the level of the clavicle where there is nondisplaced fracture involving the medial head of the left clavicle. No dislocation at the sternoclavicular joint. Remainder of the clavicle is intact . AC joint is unremarkable. Patient has buckling of the midportion of the sternum without an acute fr acture line seen. This is suspected to be a chronic sternum fracture; however, correlation is needed with any local acute sternum pain. There is accentuated kyphosis. Vertebroplasty changes are present in the collapsed L1 body. Approximately 50% L3 fracture is seen. No definitive acute fracture lines s een though age of this fracture remains uncertain. There is overall osteopenia. No fracture of the caryl ny pelvis. Hip joint degenerative changes are present. CT abdomen and pelvis show no injury to solid abdominal viscera. Gallbladder is contracted. No biliar y tree dilatation. No bowel injury or significant finding. Diverticulosis is present without divertic ulitis. Pelvic floor prolapse is evident. Atrophic uterus and atrophic ovaries are identified. No ova chey based mass. Appendix is normal. No free air, free fluid or pneumatosis. There is laxity of the l ower abdominal wall without hernia defect. No mass or bulky lymphadenopathy. No urinary bladder abno rmality. Dense arterial tree calcifications are present. IMPRESSION: No significant CT Head finding. No significant CT cervical spine finding. Fracture of the medial head left clavicle with overlying contusion and edema. Remainder of the left c lavicle is intact with no AC joint or SC joint significant finding. Buckling of the midportion of the sternum. Age is not definitive though old fracture is favored. Mary Ellen elation is needed with any focal symptoms of the sternum. Approximately 50% L3 compression fracture age uncertain. No acute traumatic injuries to the abdomen or pelvis. No significant CT Abdomen and Pelvis finding.
--- NOTE | 2022-05-04 18:12 | RAD REPORT ---
EXAM DESCRIPTION: RAD - Humerus Left - 05/04/2022 6:05 pm CLINICAL HISTORY: Fall, arm pain, shoulder pain COMPARISON: None. FINDINGS: No fracture is identified. There is no dislocation or periosteal reaction noted. AC joint degenerative changes are present with superior and inferior directed spurring. Acromiohumeral joint space is narrowed and patient likely has chronic rotator cuff tear. Bones are osteopenic. No patholog ic changes. IMPRESSION: Left shoulder joint degenerative change with no acute left humerus finding.
--- NOTE | 2022-05-04 18:13 | RAD REPORT ---
EXAM DESCRIPTION: RAD - Clavicle Left - 05/04/2022 6:05 pm CLINICAL HISTORY: PAINafter fall COMPARISON: No comparisons FINDINGS: Single AP view of the clavicle was submitted. There is a nondisplaced fracture involving t he medial clavicle head. No dislocation from the SC joint. Remainder of the left clavicle is intact. AC joint degenerative changes are present with articular marginal spurring. IMPRESSION: Nondisplaced fracture of the left clavicle medial head.
--- NOTE | 2022-05-04 18:36 | EDPHYS ---
Physician Documentation [facility] Name: Melanie Kerr Age: 86 yrs Sex: Female : 1935 Arrival Date: 05/04/2022 Time: 16:30 Bed 5 Private MD: ED Physician Robel Mariscal HPI: 05/04 17:00 This 86 yrs old Female presents to ER via Wheelchair with complaints of Fall Injury. cp 17:00 Details of fall: The patient fell from an upright position, while walking. Onset: The cp symptoms/episode began/occurred today, about 1200. Associated injuries: The patient sustained injury to the head, contusion, pain to left shoulder and left clavicle. Severity of symptoms: in the emergency department the symptoms are unchanged, despite home interventions. Patient reports losing balance while walking today causing her to fall into wall and then to ground. No reported loss of consciousness. Historical: - Allergies: 16:36 Codeine (Vomiting); hb - PMHx: 16:36 Diabetes - NIDDM; Hypertension; Hypothyroidism; Sleep Apnea; T12 fracture; hb - Immunization history:: Adult Immunizations up to date. - Social history:: Smoking status: Patient denies any tobacco usage or history of. - Immunization history: Last tetanus immunization: - up to date. ROS: 17:05 Constitutional: Negative for body aches, chills, fever, poor PO intake. cp 17:05 Eyes: Negative for injury, pain, redness, and discharge. cp 17:05 Neck: Negative for pain with movement, pain at rest, stiffness. 17:05 Cardiovascular: Negative for edema, palpitations. 17:05 Respiratory: Negative for cough, shortness of breath, wheezing. 17:05 Abdomen/GI: Negative for abdominal pain, nausea, vomiting, and diarrhea. 17:05 MS/extremity: Positive for pain, of the left shoulder and left clavicle, Negative for decreased range of motion, deformity. 17:05 Neuro: Negative for altered mental status, loss of consciousness, numbness, syncope, weakness. 17:05 All other systems are negative. Exam: 17:10 Constitutional: The patient appears in no acute distress, alert, awake, cp non-diaphoretic, non-toxic, well developed, well nourished. 17:10 Head/Face: Normocephalic, atraumatic. cp 17:10 Eyes: Periorbital structures: appear normal, Pupils: equal, round, and reactive to light and accomodation, Extraocular movements: intact throughout, Conjunctiva: normal, no exudate, no injection, Sclera: no appreciated abnormality, Lids and lashes: appear normal, bilaterally. 17:10 ENT: External ear(s): are unremarkable, Nose: is normal, Mouth: Lips: moist, Oral mucosa: pink and intact, moist, Posterior pharynx: Airway: no evidence of obstruction, patent. 17:10 Neck: C-spine: vertebral tenderness, is not appreciated, crepitus, is not appreciated, ROM/movement: is normal, is supple, without pain, no range of motions limitations. 17:10 Chest/axilla: Inspection: normal, Palpation: crepitus, is not appreciated, tenderness, is not appreciated. 17:10 Cardiovascular: Rate: normal, Rhythm: regular, Edema: is not appreciated, JVD: is not appreciated. 17:10 Respiratory: the patient does not display signs of respiratory distress, Respirations: normal, no use of accessory muscles, no retractions, labored breathing, is not present, Breath sounds: are clear throughout, no decreased breath sounds, no stridor, no wheezing. 17:10 Abdomen/GI: Inspection: abdomen appears normal, Palpation: abdomen is soft and non-tender, in all quadrants. 17:10 Back: pain, that is mild, of the thoracic area, ROM is normal. 17:10 Musculoskeletal/extremity: Extremities: grossly normal except: noted in the left arm and left shoulder: tenderness to palpation noted proximal left clavicle, pain with passive ROM left shoulder, no deformities noted, Pulses: noted to be 2+ in the left radial artery, the left arm Sensation intact. 17:10 Neuro: Orientation: to person, place \T\ time. Mentation: is normal, Motor: moves all fours, strength is normal, Sensation: is normal. Vital Signs: 16:34 BP 135 / 82; Pulse 61; Resp 16; Temp 98.3; Pulse Ox 100% on R/A; Weight 62.51 kg (R); hb Height 5 ft. 5 in. (165.10 cm); Pain 8/10; 18:58 BP 156 / 68; Pulse 83; Resp 16; Pulse Ox 100% ; ll1 16:34 Body Mass Index 22.93 (62.51 kg, 165.10 cm) hb Mary Coma Score: 18:56 Eye Response: spontaneous(4). Verbal Response: oriented(5). Motor Response: obeys ll1 commands(6). Total: 15. Trauma Score (Adult): 18:56 Eye Response: spontaneous(1); Verbal Response: oriented(1); Motor Response: obeys ll1 commands(2); Systolic BP: > 89 mm Hg(4); Respiratory Rate: 10 to 29 per min(4); Mary Score: 15; Trauma Score: 12 Procedures: 18:45 Splinting: Splint applied to left arm using sling, applied by nurse. Examined by me, cp post splint application: neurovascular intact, Patient tolerated well. MDM: 16:37 Patient medically screened. cp 18:35 Data reviewed: vital signs, nurses notes, radiologic studies, CT scan, plain films. cp 18:35 Test interpretation: by ED physician or midlevel provider: plain radiologic studies. cp Counseling: I had a detailed discussion with the patient and/or guardian regarding: the historical points, exam findings, and any diagnostic results supporting the discharge/admit diagnosis, lab results, radiology results. 05/04 16:51 Order name: CT Traumagram (Head C Spine CAP wo con); Complete Time: 18:24 cp 05/04 16:51 Order name: XRAY Clavicle LEFT; Complete Time: 18:24 cp 05/04 16:51 Order name: XRAY Humerus LEFT; Complete Time: 18:24 cp 05/04 18:34 Order name: Sling; Complete Time: 18:54 cp Administered Medications: 17:05 Not Given (Physician Discretion): Tylenol 650 mg PO once cp Disposition Summary: 05/04/22 18:35 Discharge Ordered Location: Home cp Problem: new cp Symptoms: have improved cp Condition: Stable cp Diagnosis - Fall on same level, unspecified cp - Fracture of clavicle - left cp Followup: cp - With: Private Physician - When: 2 - 3 days - Reason: Recheck today's complaints Discharge Instructions: - Discharge Summary Sheet cp - Clavicle Fracture cp - Fall Prevention in the Home, Adult cp Forms: - Medication Reconciliation Form cp - Thank You Letter cp - Antibiotic Education cp - Prescription Opioid Use cp Prescriptions: - Ibuprofen 800 mg Oral Tablet - take 1 tablet by ORAL route every 8 hours As needed take with food; 30 tablet; cp Refills: 0, Product Selection Permitted Signatures: Dispatcher [employer] Tim Pollock PA PA cp Baxter, Heather RN RN Silvestre De La Torre RN RN ll1
--- NOTE | 2022-05-04 18:36 | ER ---
Nurse's Notes [facility] Name: Melanie Kerr Age: 86 yrs Sex: Female : 1935 Arrival Date: 05/04/2022 Time: 16:30 Bed 5 Private MD: Diagnosis: Fall on same level, unspecified;Fracture of clavicle-left Presentation: 05/04 16:34 Chief complaint: Left shoulder and clavicle pain after mechanical fall from standing at hb noon today. Denies other injuries. Negative LOC. Takes ASA. Coronavirus screen: At this time, the client does not indicate any symptoms associated with coronavirus-19. Ebola Screen: No symptoms or risks identified at this time. Initial Sepsis Screen: Does the patient meet any 2 criteria? No. Patient's initial sepsis screen is negative. Does the patient have a suspected source of infection? No. Patient's initial sepsis screen is negative. Risk Assessment: Do you want to hurt yourself or someone else? Patient reports no desire to harm self or others. Onset of symptoms was May 04, 2022. 16:34 Method Of Arrival: Wheelchair 16:34 Acuity: SHABBIR 3 hb 18:57 Care prior to arrival: None. Mechanism of Injury: Fall. Trauma event details: Injury ll1 occurred in the [facility]. Trauma Activation: Not Applicable Physician: ED Physician; Name: ; Notified At: ; Arrived At: Physician: General Surgeon; Name: ; Notified At: ; Arrived At: Physician: Radiology; Name: ; Notified At: ; Arrived At: Physician: Respiratory; Name: ; Notified At: ; Arrived At: Physician: Lab; Name: ; Notified At: ; Arrived At: Historical: - Allergies: 16:36 Codeine (Vomiting); hb - PMHx: 16:36 Diabetes - NIDDM; Hypertension; Hypothyroidism; Sleep Apnea; T12 fracture; hb - Immunization history:: Adult Immunizations up to date. - Social history:: Smoking status: Patient denies any tobacco usage or history of. - Immunization history: Last tetanus immunization: - up to date. Screenin:55 Abuse screen: Denies threats or abuse. Nutritional screening: No deficits noted. ll1 Tuberculosis screening: No symptoms or risk factors identified. Fall Risk Fall in past 12 months (25 points). Total Mayes Fall Scale indicates Low Risk Score (25-44 pts). Fall prevention measures have been instituted. Side Rails Up X 2 Placed close to Nursing Station Frequent Obs/Assesments occuring As available Patient and Family Educated on Fall Prevention Program and strategies. Primary Survey: 18:56 NO uncontrolled hemorrhage observed. A: The client is awake and alert. The airway is ll1 patent. Breathing/Chest: Spontaneous respiratory effort, equal unlabored respirations, breath sounds clear bilaterally, regular pattern, symmetrical chest rise and fall. Circulation: No external hemorrhage present. Regular and strong central pulse, skin warm/dry/normal color. Disability Client is alert. Exposure/Environment: A warming method has been applied: A warm blanket has been provided to the patient. 18:56 Reassessment Alertness and Airway: Awake and alert. The airway is patent. Breathing: ll1 Spontaneous respiratory effort, equal unlabored respirations, breath sounds clear bilaterally, regular pattern with symmetrical chest rise and fall. Circulation: No external hemorrhage noted. Regular and strong central pulse, skin warm/dry/normal color. Disability: Pupils. Assessment: 16:45 General: Appears in no apparent distress. Behavior is calm, cooperative, appropriate ll1 for age. Pain: Complains of pain in L clavicle Quality of pain is described as aching. Musculoskeletal: Circulation, motion, and sensation intact. Capillary refill < 3 seconds. 17:45 Reassessment: No changes from previously documented assessment. ll1 18:45 Reassessment: No changes from previously documented assessment. Patient and/or family ll1 updated on plan of care and expected duration. Pain level reassessed. 18:55 Musculoskeletal: Circulation, motion, and sensation intact. Capillary refill < 3 ll1 seconds. Vital Signs: 16:34 BP 135 / 82; Pulse 61; Resp 16; Temp 98.3; Pulse Ox 100% on R/A; Weight 62.51 kg (R); hb Height 5 ft. 5 in. (165.10 cm); Pain 8/10; 18:58 BP 156 / 68; Pulse 83; Resp 16; Pulse Ox 100% ; ll1 16:34 Body Mass Index 22.93 (62.51 kg, 165.10 cm) hb Mary Coma Score: 18:56 Eye Response: spontaneous(4). Verbal Response: oriented(5). Motor Response: obeys ll1 commands(6). Total: 15. Trauma Score (Adult): 18:56 Eye Response: spontaneous(1); Verbal Response: oriented(1); Motor Response: obeys ll1 commands(2); Systolic BP: > 89 mm Hg(4); Respiratory Rate: 10 to 29 per min(4); [place] Score: 15; Trauma Score: 12 ED Course: 16:30 Patient arrived in ED. rg4 16:32 Tim Lazaro PA is PHCP. cp 16:32 Robel Mariscal MD is Attending Physician. cp 16:36 Triage completed. hb 16:36 Arm band placed on. hb 16:42 Silvestre De La Torre, CARLO is Primary Nurse. ll1 16:44 Patient placed in an exam room, on a stretcher. ll1 17:41 CT Traumagram (Head C Spine CAP wo con) In Process Unspecified. EDMS 18:06 XRAY Clavicle LEFT In Process Unspecified. EDMS 18:06 XRAY Humerus LEFT In Process Unspecified. EDMS 18:55 Sling applied to left arm. ll1 18:56 No provider procedures requiring assistance completed. Patient did not have IV access ll1 during this emergency room visit. 18:57 Patient maintains SpO2 saturation greater than 95% on room air. ll1 18:58 Patient has correct armband on for positive identification. Bed in low position. Call ll1 light in reach. Cardiac monitoring not applicable on this patient. 18:58 Thermoregulation: warm blanket given to patient. ll1 Administered Medications: 17:05 Not Given (Physician Discretion): Tylenol 650 mg PO once cp Medication: 18:57 VIS not applicable for this client. ll1 Intake: 18:57 PO: 0ml; Total: 0ml. ll1 Outcome: 18:35 Discharge ordered by . cp 18:57 Discharged to home via wheelchair. ll1 18:57 Condition: stable 18:57 Discharge instructions given to patient, Instructed on discharge instructions, follow up and referral plans. medication usage, Demonstrated understanding of instructions, follow-up care, medications, Prescriptions given X 1. 18:57 Patient's length of stay was not longer than 2 hours. ll1 18:59 Patient left the ED. ll1 Signatures: Dispatcher [employer] EDKS Tim Lazaro PA PA cp Baxter, Heather, RN RN Justyna Machado rg4 Wil, Lynsay, RN RN ll1 Corrections: (The following items were deleted from the chart) 18:59 18:55 Musculoskeletal: Circulation, motion, and sensation intact. Capillary refill < 3 ll1 seconds, ll1
[2022-05-06 12:13] VITALS: BP 156/68; O2SAT 100
[2022-05-06 12:29] VITALS: TEMP 98.3
== END 2022-05-04 18:59 | disposition home or self-care (01) ==
LOC: ER 16:28
DX: S42.002A Fracture of unspecified part of left clavicle, initial encounter for closed fracture (principal); Z88.5 Allergy status to narcotic agent
CPT/HCPCS: 70450; 71250; 72125; 99284

== ENCOUNTER 2022-05-12 10:08 | Emergency (ER) | payer OTHER ==
--- OUTSIDE RECORDS SUMMARY | 2022-05-12 10:14 | XMS REPORT | Continuity of Care Document ---
:1935 Author Organization [facility] t Address [address] [place] [address] Care Team Providers Name Role Phone Anum Cruz Primary Care Physician [phone] Eufemia_FEMI Attending Clinician Unavailable Ariane Bazzi Attending Clinician [phone] Giana SOLIZ, Manohar Nelson Attending Clinician KAREN MARINO Attending Clinician Unavailable HIPOLITO GANN Attending Clinician Unavailable ASKED, NO Attending Clinician Unavailable Eufemia_FEMI Admitting Clinician Unavailable Payers Payer Name Policy Type Policy Number Effective Date Expiration Date S katheryn [facility] [id number] 2021 (MEDICARE 00:00:00 REPLACEMENT/ADVANTA GE - PPO) UNITED MEDICARE HMO [id number] 2020 00:00:00 [employer] MEDICARE ADV [id number] 2018 00:00:00 Problems Condition Condition Condition Status Onset Resolution Last Treating Co mments Source Name Details Category Date Date Treatment Clinician Date VIKTORIYA on VIKTORIYA on Disease Active 2016-08 [facility] CPAP CPAP [facility]-17 [facility] 00:00: Hospita 00 l Pulmonary Pulmonary Disease Active [facility] emphysema emphysema 3 st 00:00: Hospita 00 l Essential Essential Disease Active 2015-08 [facility] hypertensi hypertensi 1-30 st on on 00:00: Hospita 00 l VIKTORIYA VIKTORIYA Disease Active [facility] (obstructi (obstructi 6 st ve sleep ve sleep 00:00: Hospit a apnea) apnea) 00 l AR AR Disease Active [facility] (allergic (allergic 01-20 st rhinitis) rhinitis) 00:00: Hosp sonali 00 l GERD GERD Disease Active [facility] (gastroeso (gastroeso 01-20 st phageal phageal 00:00: Hospita reflux reflux 00 l disease) disease) Allergies, Adverse Reactions, Alerts Allergy Allergy Status Severity Reaction(s) Onset Inactive Treating Comm ents Source Name Type Date Date Clinician PROPOXYP Allergy Active [facility] Medical INOPHEN 00 Center Propoxyp Propensi Active [facility] to [facility] adverse 00:00: Medical inophen reaction 00 Center s codeine DA Active [facility] 8[facility]03 [place] 00:00: Orthope 00 dic Hospita l CODEINE Allergy Active Diarrhea [facility] 00[facility] Medical 00 Center Codeine Drug Active Diarrhea, Other [facility] Allergy Other (See 13 reaction( Radha kes Comments) 00:00: s): GI Medical 00 Intoleran Center ce Codeine Propensi Active GI Methodi ty to Intolerance 613 st adverse 00:00: Hospita reaction 00 l s to drug Other Propensi Active Darvocet Method i ty to 6-13 st adverse 00:00: Hospita reaction 00 l s NO KNOWN Allergy Active [facility]ERGIE S Family History Family Member Diagnosis Comments Start Date Stop Date Source Natural father Cancer [facility] Natural mother [facility] Natural son Sleep disorder [facility] Social History Social Habit Start Date Stop Date Quantity Comments Source History SDOH [facility] Alcohol Std Drinks [facility] History SDOH AYDEE Ya Alcohol Binge Medical [facility] History SDMO AYDEE Ya Alcohol Comment Medical C enter Alcohol intake 2021-10-31 2021-10-31 [facility] 00:[facility] 00:00:00 non-drinker of Hospital alcohol (finding) Tobacco use and 2019-12-23 2019-12-[address] [facility] exposure 00:00:00 00:00:00 [facility] Center History SDOH 2019-12-23 2019-12-23 1 AYDEE Ya Alcohol Frequency 00:00:00 00:00:00 [facility] Center Sex Ass[birth year] At [birth year] AYDEE Rosales 00:00:00 00:00:00 [facility] Center Smoking Status Start Date Stop Date Source Never smoked tobacco [facility] Medications Ordered Filled Start Stop Current Ordering Indication Dosage Frequency Signature Comments Components Source Medication Medication Date Date Medication? Clinician (SIG) Name Name dagoberto 2022- No 1{spray Q.25D 1 spray M ethodi (NASALCHROM 10-31 } into each st ) 5.2 00:00: 04:59 nostril 4 Hospit a mg/spray (4 00 :00 (four) l %) nasal times a spray day. yisselmolyn 2022- No 1{spray Q.25D 1 spray M ethodi (NASALCHROM 325 } into each st ) 5.2 00:00: [...] Hospita 28 times a l day. aspirin 0 Yes 81mg QD Take 81 mg Meth marco (ECOTRIN) 9-[address] 81 MG 14:32: daily. Hospita enteric 28 l coated tablet denosumab Yes 60mg Q180D Inject 60 Me thodi (PROLIA) 60 9-[address] mg/mL 14:32: the skin Hospita syringe 28 every 6 l syringe (six) months. telmisartan Yes 20mg QD Take 20 mg [facility] (MICARDIS) 9-[address] 20 MG 14:32: daily. Hospita tablet 28 l famotidine 0 Yes 20mg Q.5D Take 20 mg M ethodi (PEPCID) 20 9-[address] MG tablet 14:32: (two) Hospita 28 times a l day. aspirin 0 Yes 81mg QD Take 81 mg Meth marco (ECOTRIN) 9-[address] 81 MG 14:32: daily. Hospita enteric 28 l coated tablet coenzyme Yes 100mg QD Take 100 Meth [facility] Q10 9-[address] (COQ-10) 14:10: mouth Hospita 100 mg 22 daily. l capsule cholecalcif Yes 1{tbl} QD Take 1 Me thodi lacie, 9-[address] vitamin D3, 14:10: mouth Hospi ta (VITAMIN 22 daily. l D3) 5,000 unit tablet vitamin E Yes 400U QD Take 400 Meth marco 400 UNIT 9-[address] capsule 14:10: mouth Hospita 22 daily. l ascorbic 0 Yes 1000mg QD Take 1,000 M ethodi acid, 9-[address] vitamin C, 14:10: mouth Hospit a (vitamin C) 22 daily. l 1000 MG tablet carboxymeth Yes Apply to Me thodi ylcellulose 9-[address] sodium 14:10: needed. Hospita (THERATEARS 22 l OPHT) levothyroxi Yes 100ug Take 100 M ethodi ne 9-[address] (SYNTHROID, 14:10: mouth. For Hospita LEVOTHROID) 22 6 days and l 100 MCG 1/2 tablet tablet for 1 day metFORMIN 2021-0 Yes 1000mg Q.5D Take 1,000 [facility] (GLUCOPHAGE 9-[address] ) 1000 MG 14:10: mouth 2 Hospi ta tablet 22 (two) l times a day with meals. glipiZIDE 2020-0 Yes 5mg Q.5D Take 5 mg [facility] (GLUCOTROL) 9-[address] 5 MG tablet 14:10: (two) Hospi ta 22 times a l day before meals. potassium 2020-0 Yes 10meq Q.5D Take 10 Meth marco chloride 9-[address] (K-DUR,KLOR 14:10: mouth 2 Hos chacha -CON) 10 22 (two) l MEQ CR times a tablet day. amLODIPine 2020-0 Yes 5mg QD Take 5 mg Me thodi (NORVASC) 5 9-[address] mg tablet 14:10: daily. [...] Hospit a tablet 22 daily. l coenzyme 2020-0 Yes 100mg QD Take 100 Meth marco Q10 9-[address] (COQ-10) 14:10: mouth Hospita 100 mg 22 daily. l capsule cholecalcif 2020-0 Yes 1{tbl} QD Take 1 Me thodi lacie, 9-[address] vitamin D3, 14:10: mouth Hospi ta (VITAMIN 22 daily. l D3) 5,000 unit tablet vitamin E 2020-0 Yes 400U QD Take 400 Meth marco 400 UNIT 9-[address] capsule 14:10: mouth Hospita 22 daily. l ascorbic 2020-0 Yes 1000mg QD Take 1,000 M ethodi acid, 9-[address] vitamin C, 14:10: mouth Hospit a (vitamin C) 22 daily. l 1000 MG tablet carboxymeth Yes Apply to Me thodi ylcellulose - eye as st sodium 14:10: needed. Hospita (THERATEARS 22 l OPHT) levothyroxi 2020-0 Yes 100ug Take 100 M ethodi ne 9-[address] (SYNTHROID, 14:10: mouth. For Hospita LEVOTHROID) 22 6 days and l 100 MCG 1/2 tablet tablet for 1 day metFORMIN 2020-0 Yes 1000mg Q.5D Take 1,000 [facility] (GLUCOPHAGE 9-[address] ) 1000 MG 14:10: mouth 2 Hospi ta tablet 22 (two) l times a day with meals. glipiZIDE 0 Yes 5mg Q.5D Take 5 mg Met [facility] (GLUCOTROL) 9-[address] 5 MG tablet 14:10: (two) Hospi ta 22 times a l day before meals. potassium 0 Yes 10meq Q.5D Take 10 [facility] mar[facility] chloride 9-[address] (K-DUR,KLOR 14:10: mouth 2 Hos chacha -CON) 10 22 (two) l MEQ CR times a tablet day. amLODIPine Yes 5mg QD Take 5 mg Me thodi (NORVASC) 5 9-[address] mg tablet 14:10: daily. Hospit a 22 l calcium 0 Yes Take by Methodi carbonate 9- mouth. Raw st (CALCIUM 14:10: Calcium Hospit [...] mouth Hospit a tablet 22 daily. l vitamin B 2020-0 Yes 1{tbl} Take [address] complex (B 4-16 tablet by Luke s COMPLEX 15:06: mouth. Medical VITAMINS 12 Center ORAL) calcium Yes Take by [facility] carbonate-v 4-16 mouth. [facility] itamin D3 15:06: Medical 500 Center mg(1,250mg) -400 unit Tab cholecalcif Yes Take by [facility] lacie, 4-16 mouth. [facility]ukes vitamin D3, 15:06: Medica l 25 mcg Center (1,000 unit) capsule COQ10, Yes Take by [facility] LIPOSOMAL 4-16 mouth. [facility] UBIQUINOL, 15:06: Medical ORAL Center vitamin E Yes 400U Take [address] 400 UNIT 4-16 Units by Lukes capsule 15:06: mouth. [address] levothyroxi Yes 100ug Take 100 C HI [...] 12 times Center daily before meals. telmisartan Yes 20mg QD Take [address] (MICARDIS) 4-16 by mouth [facility]ukes 20 MG 15:06: daily. Medical tablet 12 Center potassium Yes QD Take by CHI S t [...] 4-16 by mouth [facility]ukes tablet 15:06: daily. [facility] 12 Center denosumab 2019-[address] (Prolia) 60 1-02 Lukes mg/mL Syrg 00:00: Medical 00 [place] UNIFINE Yes Type [address] PENTIPS 31 -09 diabetes [facility]ukes gauge x 00:00: mellitus Medica l 10/23" Nd with Center diabetic neuropathy, without long-term current use of insulin ([facility]) TYMLOS 80 Yes 80ug QD Inject 80 [facility] mcg (3,120 8-[address] mcg/1.56 00:00: the skin Hospi ta mL) pen 00 nightly. l injector TYMLOS 80 Yes 80ug QD Inject 80 [facility] mcg (3,120 8-[address] mcg/1.56 00:00: the skin Hospi ta mL) pen 00 nightly. l injector Immunizations Ordered Immunization Filled Immunization Date Status Commen ts Source Name Name Zoster Vaccine 2021-08-20 Completed [facility] Recombinant 00:00:00 [facility] Zoster Vaccine 2021-08-20 Completed [facility] Recombinant 00:00:00 [facility] Zoster 2021-07-09 [facility]pleted [facility] 00:00:00 [facility] Zoster 2021-07-09 Completed [facility] 00:00:00 [facility] Zoster Vaccine 2021-06-12 Completed [facility] Recombinant 00:00:00 [facility] Zoster Vaccine 2021-06-12 Completed [facility] Recombinant 00:00:00 [facility] PFIZER COVID-19 MRNA 2021-05-16 Completed [facility] odist VACCINATION 00:00:00 [facility] PFIZER COVID-19 MRNA 2021-05-16 Completed [facility] odist VACCINATION 00:00:00 [facility] FLUZONE HIGH-DOSE PF 2021-05-02 Completed Meth odist 00:00:00 [facility] FLUZONE HIGH-DOSE PF 2021-05-02 Completed Meth odist 00:00:00 [facility] PFIZER COVID-19 MRNA 2020-10-07 Completed Meth odist VACCINATION 00:00:00 [facility] PFIZER COVID-19 MRNA 2020-10-07 Completed Meth odist VACCINATION 00:00:00 [facility] PFIZER COVID-19 MRNA 2020-09-16 Completed Meth odist VACCINATION 00:00:00 [facility] PFIZER COVID-19 MRNA 2020-09-16 Completed Meth odist VACCINATION 00:00:00 [facility] FLUZONE HIGH-DOSE PF 2019-05-02 Completed [facility] odist 00:00:00 [facility] FLUZONE HIGH-DOSE PF 2019-05-02 Completed Meth odist 00:00:00 [facility] Pneumococcal 2014-12-28 Completed [facility] Conjugate 00:00:00 [facility] Pneumococcal 2014-12-28 [facility]pleted [facility] Conjugate 00:00:00 Hospital Vital Signs Vital Name [...] 152.4 cm WEIGHT 2020-02-24 00:00:00 68.04 kg HEIGHT 2019-12-23 00:00:00 152.4 cm WEIGHT 2019-12-23 00:00:00 68.04 kg Heart rate 2021-10-31 18:19:00 81 /min [facility] Oxygen saturation in 2021-10-31 18:19:00 95 /min [facility] Arterial blood by Pulse oximetry Procedures This patient has no known procedures. Plan of Care Planned Activity Planned Date Details Comments Source Future Scheduled 2022-05-12 HEPATITIS B VACCINES [facility] Test 10:13:27 (1 of 3 - 3-dose series) [code = HEPATITIS B VACCINES (1 of 3 - 3-dose series)] Future Scheduled 2022-05-12 65+ [facility]CC[facility] Test 10:13:27 VACCINE (1 - PCV) [code = 65+ PNEUMOCOCCAL VACCINE (1 - PCV)] Future Scheduled 2022-05-12 COVID-19 VACCINE (4 - [facility] Test 10:13:27 Booster for Pfizer series) [code = COVID-19 VACCINE (4 - Booster for Pfizer series)] Future Scheduled 2022-05-12 INFLUENZA VACCINE Method [facility] Test 10:13:27 [code = INFLUENZA VACCINE] Future Scheduled 2022-04-30 HEPATITIS B VACCINES [facility] Test 16:10:48 (1 of 3 - 3-dose series) [code = HEPATITIS B VACCINES (1 of 3 - 3-dose series)] Future Scheduled 2022-04-30 65+ [facility] 16:10:48 VACCINE (1 - PCV) [code = 65+ PNEUMOCOCCAL VACCINE (1 - PCV)] Future Scheduled 2022-04-30 COVID-19 VACCINE (4 - [facility] Test 16:10:48 Booster for Pfizer series) [code = COVID-19 VACCINE (4 - Booster for Pfizer series)] Future Scheduled 2022-04-30 INFLUENZA VACCINE [facility] Test 16:10:48 [code = INFLUENZA VACCINE] [...] A1c [facility] Test 00:00:00 [facility] (procedure) [code = 73910167] Future Scheduled 2019-08-[address] [facility] Test 00:00:00 protein (procedure) [facility] Center [code = 339664947] Future Scheduled 1942 PNEUMOCOCCAL 65+ YRS CHI [...] Department ID 2022-03-08 2022-03-08 Outpatient FOG_Zumwalt AOSM AOSM [id number] Lesli 00:00:00 00:00:00 _nAgi [id number] [facility] 2022-01-20 2022-01-20 Outpatient FOG_Zumwalt AOSM AOSM [id number] Lesli 02:38:00 02:38:00 _Angi [id number] [facility] 2022-01-20 2022-01-20 Outpatient Monla, AOSM AOSM [id number] e-f 00:00:00 00:00:00 Ariane Rice [id number] 2021-11-08 2021-11-08 Outpatient FOG_Zumwalt AOSM AOSM [id number] Lesli 12:16:00 12:16:00 _Angi [id number] Orth o[facility] Medicin e 2021-10-31 2021-10-31 Office Anthony, 1.2.840.1 [id number] [facility] 13:00:00 13:20:42 Visit Sunees 92135.1.[address] Omar 3.430.2.7 Hospit a .3.287726 l .8 2021-10-31 2021-10-31 Office Anthony, 1.2.840.1 [id number] [facility] 13:00:00 13:20:42 Visit Suneesh 34216.1.[address] Omar 3.430.2.7 Hospit a .3.817475 l .8 2021-10-31 2021-10-31 Travel 1.2.840.1 1.2.257.922 3550 [id number] [facility] 00:00:00 00:00:[address] 3.430.2.7 0.2.7.3.698 Ho spita .3.930317 084.8 l .8 2021-10-31 2021-10-31 Travel 1.2.840.1 1.2.045.842 3889 [id number] [facility] 00:00:00 00:00:[address] 3.430.2.7 0.2.7.3.698 Ho spita .3.960508 084.8 l .8 2021-05-02 2021-05-02 Outpatient ANTHONY, [facility] [id number] [address] [place] [address] 00:00:00 00:00:00 SUNEES [address] 2021-05-02 2021-05-02 Outpatient [facility] [id number] [address] [place] [address] 00:00:00 00:00:[address] 2021-05-02 2021-05-02 Outpatient [facility] [id number] [address] [place] [address] 00:00:00 00:00:00 SUNEES [address] 2021-01-25 2021-01-[address] [facility] [id number] [facility] 00:00:00 00:00:00 [facility] 2020-11-23 2020-11-[address] [facility] [id number] [address] 00:00:00 00:00:00 [facility] 2020-11-02 2020-11-[address] [facility] [id number] 00:00:00 00:00:00 [facility] 2020-10-29 2020-10-29 Outpatient ANTHONY, [facility] [id number] [address] [place] 00:00:00 00:00:[address] SUNEESH [address] 2020-10-07 2020-10-07 Outpatient ROBBEN, [facility] [id number] [address] [place] 00:00:00 00:00:[address] H[address]O [address] 2020-09-16 2020-09-16 Outpatient ASKED, NO [facility] [id number] [place] 00:00:00 00:00:[address] 2020-08-31 2020-08-[address] [facility] [id number] 00:00:00 00:00:00 [facility] 2020-06-29 2020-06-[address] [facility] [id number] 00:00:00 00:00:00 [facility] 2020-06-29 2020-06-[address] [facility] [id number] 00:00:00 00:00:00 [facility] 2020-05-08 2020-05-08 Outpatient ANTHONY, [facility] [id number] 8[address] [place] 00:00:00 00:00:00 SUNEESH [address] 2020-04-27 2020-04-[address] [facility] [id number] 00:00:00 00:00:00 [facility] 2020-03-03 2020-03-03 Emergency ER [facility] Emergency [id number] [facility] 13:43:00 13:43:00 2020-02-24 2020-02-[address] [facility] [id number] 00:00:00 00:00:00 [facility] 2019-12-28 2019-12-28 Outpatient ANTHONY, [facility] [id number] [address] [place] 00:00:00 00:00:00 [place] [address] 2019-12-23 2019-12-[address] [facility] [id number] [facility] 00:00:00 00:00:00 [facility] Results Test Description Test Time Test Comments Results Result Sourc e Comments - MRI L-SPINE W/O 2019-03-14 Patient Name: CONT 12:20:00 WINIFRED KERR Unit No: [id number] EXAMS: CPT CODE: [id number] MRI L-SPINE W/O CONT [id number] MRI OF THE LUMBAR SPINE: DIAGNOSIS: 1. [...] MD Technologist: Mirian Holliday(R) Transcribed D/ (1220) CedricG [facility] NAME: WINIFRED KERR [address] [facility] PHYS: Joshua Kaur : 1935 AGE: 83 SEX: F [place], [place] [address] LOC: Y.MRI PHONE #: [phone] EXAM DATE: 03/12/2019 STATUS: DEP CLI FAX #: [phone] RAD #: D/C DT PAGE 1 Signed Report Patient Name: WINIFRED KERR Unit No: [id number] EXAMS: CPT CODE: [id number] MRI L-SPINE W/O CONT [id number] (Continued) Orig Print D/T: S: 03/14/2019 (1223) [facility] NAME: WINIFRED KERR [address] [facility] PHYS: Joshua Kaur : 1935 AGE: 83 SEX: F [place] [address] LOC: Y.MRI PHONE #: [phone] EXAM DATE: 03/12/2019 STATUS: STACY CLI FAX #: [phone] RAD #: D/C DT PAGE 2 Signed Report
[2022-05-12] MEDS ORDERED: ACETAMINOPHEN 500 MG TAB ONE (10:48)
[2022-05-12] MEDS ORDERED: LIDOCAINE 4% PATCH ONE (10:49)
--- NOTE | 2022-05-12 10:52 | EDPHYS ---
Physician Documentation [facility] Name: Melanie Kerr Age: 86 yrs Sex: Female : 1935 Arrival Date: 05/12/2022 Time: 10:11 Bed 6 Private MD: SANDRA WIGGINS ED Physician Raimundo Kim HPI: 05/12 10:48 This 86 yrs old Female presents to ER via Wheelchair with complaints of Pain from Fall jr11 05/04. 10:48 Patient is an 86-year-old female with a recent fall, clavicle fracture, she had her jr11 head all the way down CT, possible compression fracture, here with lower back pain, going down her right leg, no muscle weakness. Patient taken ibuprofen for pain, minimal relief. Patient is here for further help. Son is with her and can take care of her. No neuro complaints. No new trauma.. Onset: The symptoms/episode began/occurred last week. Severity of symptoms: At their worst the symptoms were moderate in the emergency department the symptoms are worse. Historical: - Allergies: 10:30 Codeine (Vomiting); ap3 - PMHx: 10:30 Diabetes - NIDDM; Hypertension; Hypothyroidism; Sleep Apnea; T12 fracture; ap3 - Immunization history:: Client reports receiving the 2nd dose of the Covid vaccine. - Social history:: Smoking status: Patient denies any tobacco usage or history of. ROS: 10:48 Constitutional: Negative for fever, chills Eyes: Negative for injury, pain, redness, jr11 and discharge, ENT: Negative for injury, pain, and discharge, Neck: Negative for injury, pain, and swelling, Cardiovascular: Negative for chest pain, palpitations, and edema, Respiratory: Negative for shortness of breath, cough Abdomen/GI: Negative for abdominal pain, nausea, vomiting Back: Negative for injury and pain, MS/Extremity: TTP over L clavicle, L shoulder kaye rom 2/2 pain, N/V intact distally, lower lumbar with TTP, no step offs, no neuro deficits Neuro: Negative for headache, weakness, numbness, tingling, and seizure. 10:48 All other systems are negative. jr11 Exam: 10:48 Constitutional: This is a well developed, well nourished patient who is awake, alert, jr11 and in no acute distress. Head/Face: Normocephalic, atraumatic. Eyes: Extra-ocular motions intact. Lids and lashes normal. Conjunctiva and sclera are non-icteric and not injected. Cornea within normal limits. Periorbital areas with no swelling, redness, or edema. ENT: Nares patent. No nasal discharge, no septal abnormalities noted. Oropharynx with no redness, swelling, or masses, exudates, or evidence of obstruction, uvula midline. Mucous membranes moist. Neck: Trachea midline, no thyromegaly or masses palpated, and no cervical lymphadenopathy. Supple, full range of motion without nuchal rigidity, or vertebral point tenderness. No Meningismus. Chest/axilla: Normal chest wall appearance and motion. Nontender with no deformity. No lesions are appreciated. Cardiovascular: Regular rate and rhythm with a normal S1 and S2. No gallops, murmurs, or rubs. Normal PMI, no JVD. No pulse deficits. Abdomen/GI: Soft, non-tender, with normal bowel sounds. No distension or tympany. No guarding or rebound. No evidence of tenderness throughout. MS/ Extremity: TTP over L clavicle, L shoulder kaye rom 2/2 pain, N/V intact distally, lower lumbar with TTP, no step offs, no neuro deficits Neuro: Awake and alert, GCS 15, oriented to person, place, time, and situation. No gross motor or sensory deficits. Vital Signs: 10:27 BP 141 / 76; Pulse 77; Resp 17; Pulse Ox 98% ; Weight 61.23 kg; Height 5 ft. (152.40 ap3 cm); Pain 6/10; 11:22 BP 140 / 70; Pulse 69; Resp 16; Pulse Ox 98% on R/A; kr3 10:27 Body Mass Index 26.37 (61.23 kg, 152.40 cm) ap3 MDM: 10:44 Patient medically screened. jr11 10:48 Differential Diagnosis fall. Data reviewed: vital signs, nurses notes. ED course: TMP jr11 checked, pt to be eval for rehab, son comfortable waiting at home for decision. Will rx norco for severe pain, pt to stop high dose NSAIds given age. . Administered Medications: 10:58 Drug: Lidoderm Patch 5 % (700 mg/patch) 1 patches Route: Topical; Site: affected area; kr3 11:21 Follow up: Response: No adverse reaction kr3 10:58 Drug: Tylenol 1000 mg Route: PO; kr3 11:21 Follow up: Response: No adverse reaction kr3 Disposition Summary: 05/12/22 10:52 Discharge Ordered Location: Home jr11 Condition: Stable jr11 Diagnosis - Fall on same level, unspecified jr11 - Fracture of clavicle jr11 - Low back pain jr11 Discharge Instructions: - Discharge Summary Sheet jr11 - Acute Back Pain, Adult jr11 Forms: - Medication Reconciliation Form jr11 - Thank You Letter jr11 - Antibiotic Education jr11 - Prescription Opioid Use jr11 Prescriptions: - Lidoderm 5 % Topical adhesive patch,medicated - apply 1 patch by TRANSDERMAL route once daily; 12 patch; Refills: 0, Product jr11 Selection Permitted Signatures: Jennifer Villalobos RN RN ap3 Raimundo Kim MD MD jr11 Nina Wallace RN RN kr3 Corrections: (The following items were deleted from the chart) 10:51 10:48 Constitutional: Negative for fever, chills Eyes: Negative for injury, pain, jr11 redness, and discharge, ENT: Negative for injury, pain, and discharge, Neck: Negative for injury, pain, and swelling, Cardiovascular: Negative for chest pain, palpitations, and edema, Respiratory: Negative for shortness of breath, cough Abdomen/GI: Negative for abdominal pain, nausea, vomiting Back: Negative for injury and pain, MS/Extremity: TTP over L clavicle, L shoulder kaye rom 2/2 pain, N/V intact distally, lower lumbar with TTP, no step offs, no neuro deficits Neuro: Negative for headache, weakness, numbness, tingling, and seizure, jr11
--- NOTE | 2022-05-12 10:52 | ER ---
Nurse's Notes [facility] Name: Melanie Kerr Age: 86 yrs Sex: Female : 1935 Arrival Date: 05/12/2022 Time: 10:11 Bed 6 Private MD: SANDRA WIGGINS Diagnosis: Fall on same level, unspecified;Fracture of clavicle;Low back pain Presentation: 05/12 10:27 Chief complaint: Patient states: she fell at [employer] last week and was evaluated here ap3 with a broken clavicle. patient and her son now report that the patient has been having a hard time walking along with hip pain starting Thursday05/07/2022. It is reported the patient has broken multiple vertebra in her back in the past, and is worried she might have done the same now. Coronavirus screen: At this time, the client does not indicate any symptoms associated with coronavirus-19. Ebola Screen: No symptoms or risks identified at this time. Initial Sepsis Screen: Does the patient meet any 2 criteria? No. Patient's initial sepsis screen is negative. Does the patient have a suspected source of infection? No. Patient's initial sepsis screen is negative. Risk Assessment: Do you want to hurt yourself or someone else? Patient reports no desire to harm self or others. Onset of symptoms was May 04, 2022. 10:27 Method Of Arrival: Wheelchair ap3 10:27 Acuity: SHABBIR 4 ap3 Triage Assessment: 10:31 General: Appears uncomfortable, Behavior is calm, cooperative. Pain: Complains of pain ap3 in back Pain began gradually. Neuro: Level of Consciousness is awake, alert, obeys commands, Oriented to person, place, time, situation. Cardiovascular: Patient's skin is warm and dry. Respiratory: Airway is patent Respiratory effort is even, unlabored, Respiratory pattern is regular, symmetrical. Musculoskeletal: Range of motion: limited. patient states she is having difficulty walking and is requiring the assistance of her son to be carried and wheelchair. Historical: - Allergies: 10:30 Codeine (Vomiting); ap3 - PMHx: 10:30 Diabetes - NIDDM; Hypertension; Hypothyroidism; Sleep Apnea; T12 fracture; ap3 - Immunization history:: Client reports receiving the 2nd dose of the Covid vaccine. - Social history:: Smoking status: Patient denies any tobacco usage or history of. Screenin:32 Abuse screen: Denies threats or abuse. Nutritional screening: No deficits noted. ap3 Tuberculosis screening: No symptoms or risk factors identified. Assessment: 11:22 Reassessment: Patient states symptoms have improved. kr3 Vital Signs: 10:27 BP 141 / 76; Pulse 77; Resp 17; Pulse Ox 98% ; Weight 61.23 kg; Height 5 ft. (152.40 ap3 cm); Pain 6/10; 11:22 BP 140 / 70; Pulse 69; Resp 16; Pulse Ox 98% on R/A; kr3 10:27 Body Mass Index 26.37 (61.23 kg, 152.40 cm) ap3 ED Course: 10:11 Patient arrived in ED. rg4 10:12 SANDRA WIGGINS is Private Physician. rg4 10:25 Raimundo Kim MD is Attending Physician. jr11 10:30 Triage completed. ap3 10:32 Arm band placed on right wrist. ap3 10:33 Patient has correct armband on for positive identification. ap3 10:46 Nina Wallace RN is Primary Nurse. kr3 Administered Medications: 10:58 Drug: Lidoderm Patch 5 % (700 mg/patch) 1 patches Route: Topical; Site: affected area; kr3 11:21 Follow up: Response: No adverse reaction kr3 10:58 Drug: Tylenol 1000 mg Route: PO; kr3 11:21 Follow up: Response: No adverse reaction kr3 Outcome: 10:52 Discharge ordered by . jr11 11:28 Patient left the ED. ll1 Signatures: Justyna Gupta rg4 Jennifer Villalobos RN RN ap3 Silvestre De La Torre RN RN ll1 Raimundo Kim MD MD jr11 Nina Wallace RN RN kr3 Corrections: (The following items were deleted from the chart) 11:31 11:31 Reassessment: Patient states symptoms have improved. kr3 kr3
[2022-05-12 11:34] VITALS: O2SAT 98
[2022-05-12 11:35] VITALS: BP 140/70
== END 2022-05-12 11:28 | disposition home or self-care (01) ==
LOC: ER 10:08
DX: M54.50 Low back pain, unspecified (principal); E11.9 Type 2 diabetes mellitus without complications; I10 Essential (primary) hypertension; E03.9 Hypothyroidism, unspecified; G47.30 Sleep apnea, unspecified; Z91.81 History of falling; Z88.6 Allergy status to analgesic agent
CPT/HCPCS: 99282; J2001

== ENCOUNTER 2024-09-07 09:53 | Inpatient (IN) | payer OTHER ==
[2024-09-07] MEDS ORDERED: NA CHLORIDE 0.9% 250 ML ONE (10:27)
[2024-09-07] MEDS ORDERED: CEFTRIAXONE 1000 MG/VIAL ONE (10:27)
[2024-09-07] MEDS ORDERED: VANCOMYCIN 1 GM/VIAL ONE (10:27)
--- NOTE | 2024-09-07 11:04 | RAD REPORT ---
EXAMINATION: Foot Right 3 View CLINICAL INDICATION: Female, 89 years old. infection COMPARISON: 02/19/2024 VIEWS: Three views FINDINGS: No acute fracture. Osteopenia which limits evaluation. Remote fifth metacarpal fracture. Lucency angelo g the great toe distal phalanx along the lateral aspect. No malalignment/dislocation. Degenerative changes are present at the first MTP joint, at the interphalangeal joints, midfoot, and hindfoot. Calcaneal spurs. Other: Peripheral vascular calcifications. IMPRESSION: No acute fracture. Mild lucency along the lateral aspect of the great toe distal phalanx could reflec t osteomyelitis.
[2024-09-07 11:26] LABS: Absolute Basophils 0.1 K/uL (0-0.5); Absolute Lymphocytes (CBC) 1.2 K/uL (0.7-4.9); Absolute Monocytes 0.9 K/uL (0.1-1.3); Absolute Neutrophil 6.9 K/uL (1.8-8.0); Basophils % 0.6 % (0-1.3); Eosinophils % 0.5 % (0-4.4); Hematocrit 41.7 % (36.0-45.0); Hemoglobin 14.4 g/dL (12.0-15.0); MCH 33.2 pg (27.0-35.0); MCHC 34.4 g/dL (32.0-36.0); MCV 96.4 fL (80-100); MPV 7.9 fL (7.6-11.3); Monocytes % 10.2 % (3.3-12.3); Neutrophils % 75.7 % (41.7-73.7); Platelets 270 thou/uL (152-406); RBC Red Blood Cell Count 4.33 M/uL (3.86-4.86); Red Cell Distribution Width 14.3 % (12.1-15.2)
[2024-09-07 14:40] LABS: PT Prothrombin Time 11.4 SECONDS (9.4-12.5); PTT, Activated Partial Thromb 27.5 SECONDS (24.3-36.9); Protime INR 1.09
--- NOTE | 2024-09-07 14:45 | ER ---
Nurse's Notes [facility] Name: Melanie Kerr Age: 89 yrs Sex: Female : 1935 Arrival Date: 09/07/2024 Time: 09:53 Bed 4 Private MD: Diagnosis: Cellulitis to right lower extremity;Osteomyelitis to right great toe Presentation: 09/07 10:17 Chief complaint: Patient states: Bilateral feet swelling x 2 months, redness and pain jl7 to right big toe. Coronavirus screen: At this time, the client does not indicate any symptoms associated with coronavirus-19. Ebola Screen: No symptoms or risks identified at this time. Initial Sepsis Screen: Does the patient meet any 2 criteria? No. Patient's initial sepsis screen is negative. Does the patient have a suspected source of infection? No. Patient's initial sepsis screen is negative. Risk Assessment: Do you want to hurt yourself or someone else? Patient reports no desire to harm self or others. Onset of symptoms was July 2024. 10:17 Method Of Arrival: Wheelchair jl7 10:17 Acuity: SHABBIR 3 jl7 Triage Assessment: 10:17 General: Appears in no apparent distress. uncomfortable, Behavior is calm, cooperative, jl7 appropriate for age. Pain: Complains of pain in right foot and left foot Pain currently is 3 out of 10 on a pain scale. Cardiovascular: Patient's skin is warm and dry. Derm: Skin is pink, warm \T\ dry. Musculoskeletal: Swelling present in right foot and left foot. Historical: - Allergies: 10:17 Codeine (Vomiting); jl7 - Home Meds: 10:17 amlodipine 5 mg tab 1 tab once daily [Active]; glipizide 5 mg Oral tab 1 tab 2 times jl7 per day [Active]; levothyroxine 100 mcg tab 1 tab once daily [Active]; metformin 1 Oral tab 1 tab 2 times per day [Active]; Pepcid 20 mg oral tablet 2 times per day [Active]; losartan oral [Active]; Prolia subcutaneous [Active]; - PMHx: 10:17 Diabetes - NIDDM; Hypertension; Hypothyroidism; Sleep Apnea; T12 fracture; Osteoporosis;jl7 - Immunization history:: Adult Immunizations up to date. - Infectious Disease History:: Denies. - Social history:: Smoking status: Patient denies any tobacco usage or history of. - Family history:: not pertinent. Screenin:30 [facility] ED Fall Risk Assessment (Adult) History of falling in the last 3 months, cm10 including since admission No falls in past 3 months (0 pts) Confusion or Disorientation No (0 pts) Intoxicated or Sedated No (0 pts) Impaired Gait Yes (1 pt) Mobility Assist Device Used Yes (1 pt) Altered Elimination No (0 pt) Score/Fall Risk Level 0 - 2 = Low Risk Oriented to surroundings, Maintained a safe environment, Hourly rounding (assess needs \T\ fall precautionary measures) done. Abuse screen: Denies threats or abuse. Denies injuries from another. Nutritional screening: No deficits noted. Tuberculosis screening: No symptoms or risk factors identified. Assessment: 11:31 General: Appears uncomfortable, Behavior is calm, cooperative. Neuro: No deficits cm10 noted. Level of Consciousness is awake, alert, obeys commands, Oriented to person, place, time, situation, Appropriate for age. Respiratory: No deficits noted. Airway is patent Respiratory effort is even, unlabored, Respiratory pattern is regular, symmetrical. 11:32 Derm: Wound noted right first toe. cm10 14:00 Reassessment: Patient appears in no apparent distress at this time. Patient and/or cm10 family updated on plan of care and expected duration. Pain level reassessed. Patient is alert, oriented x 3, equal unlabored respirations, skin warm/dry/pink. 16:00 Reassessment: Patient appears in no apparent distress at this time. Patient and/or cm10 family updated on plan of care and expected duration. Pain level reassessed. Patient is alert, oriented x 3, equal unlabored respirations, skin warm/dry/pink. 17:00 Reassessment: Patient appears in no apparent distress at this time. Patient and/or cm10 family updated on plan of care and expected duration. Pain level reassessed. Patient is alert, oriented x 3, equal unlabored respirations, skin warm/dry/pink. 18:54 Reassessment: Patient appears in no apparent distress at this time. Patient and/or cm10 family updated on plan of care and expected duration. Pain level reassessed. Patient is alert, oriented x 3, equal unlabored respirations, skin warm/dry/pink. Vital Signs: 10:17 BP 132 / 87; Pulse 100; Resp 17; Temp 98.7; Pulse Ox 99% ; Weight 53.52 kg; Height 5 jl7 ft. 0 in. ; Pain 3/10; 12:05 BP 146 / 73; Pulse 82; Resp 15; Pulse Ox 98% ; ko1 13:00 BP 160 / 79; Pulse 86; Resp 15; Pulse Ox 97% ; cm10 14:00 BP 167 / 83; Pulse 92; Resp 15; Pulse Ox 94% ; cm10 15:00 BP 152 / 79; Pulse 91; Resp 18; Pulse Ox 96% ; cm10 16:00 BP 161 / 75; Pulse 90; Resp 15; Pulse Ox 95% ; cm10 16:30 BP 173 / 83; Pulse 93; Resp 15; Pulse Ox 95% ; cm10 17:00 BP 146 / 83; Pulse 93; Resp 15; Pulse Ox 95% ; cm10 10:17 Body Mass Index 23.05 (53.52 kg, 152.4 cm) jl7 10:17 Pain Scale: Adult jl7 ED Course: 09:56 Patient arrived in ED. mr 09:56 Joshua Kelley MD is Attending Physician. rt 10:17 Arm band placed on right wrist. jl7 10:22 Triage completed. jl7 10:41 Foot Right 3 View XRAY In Process Unspecified. EDMS 10:45 Missed attempt(s): 22 gauge in right forearm. Bleeding controlled, band aid applied, cm10 catheter tip intact. 10:45 First set of blood cultures drawn by me. cm10 11:09 Inserted saline lock: 24 gauge in right hand, using aseptic technique. Blood collected. cm10 Flushed with 10 mL NS. 11:09 Initial lab(s) drawn, by me, sent to lab. Second set of blood cultures drawn by me. cm10 11:15 Serina Reyes, RN is Primary Nurse. cm10 11:30 Patient has correct armband on for positive identification. Bed in low position. Call cm10 light in reach. Side rails up X2. Provided Education on: ER process and procedures.. Client placed on continuous cardiac and pulse oximetry monitoring. NIBP monitoring applied. 14:44 Velasquez Maurer is Hospitalizing Provider. rt 15:02 No provider procedures requiring assistance completed. Patient admitted, IV remains in ko1 place. Administered Medications: 11:10 Drug: Rocephin - Rocephin (cefTRIAXone) IVPB 2 grams IVPB once over 30 mins; (mix in ko1 100 mL NS) Route: IVPB; Infused Over: 30 mins; Site: right wrist; 11:17 Follow up: Response: No adverse reaction; IV Status: Completed infusion; IV Intake: [id number] 11:40 Follow up: Response: No adverse reaction; IV Status: Completed infusion; IV Intake: [id number] 11:14 Drug: vancoMYCIN IVPB 1 grams IVPB once over 2 hrs Route: IVPB; Infused Over: 2 hrs; ko1 Site: right wrist; 13:15 Follow up: Response: No adverse reaction; IV Status: Completed infusion; IV Intake: cm10 250ml Medication: 15:02 VIS not applicable for this client. ko1 Intake: 11:17 IV: 10ml; Total: 10ml. cm10 11:40 IV: 50ml; Total: 60ml. ko1 13:15 IV: 250ml; Total: 310ml. cm10 Outcome: 14:45 Decision to Hospitalize by Provider. rt 15:03 Admitted to ER Hold. Please see [facility] for further documentation. ko1 15:03 Condition: stable 15:03 Instructed on the need for admit, 18:53 Patient left the ED. cm10 18:53 Admitted to Tele accompanied by tech, via wheelchair, room 407, cm10 18:53 Condition: good 18:53 Instructed on the need for admit, Signatures: Dispatcher [employer] EDMS OlsenKaren, Reg Reg mr Leo Miles RN RN jl7 Pratibha Rodriguez RN RN ko1 Joshua Kelley MD MD rt Serina Reyes RN RN cm10 Corrections: (The following items were deleted from the chart) 11:33 11:31 Neuro: No deficits noted. Level of Consciousness is awake, alert, obeys commands, cm10 Oriented to person, place, time, situation, Appropriate for age cm10
--- NOTE | 2024-09-07 14:45 | EDPHYS ---
Physician Documentation [facility] Name: Melanie Kerr Age: 89 yrs Sex: Female : 1935 Arrival Date: 09/07/2024 Time: 09:53 Bed 4 Private MD: ED Physician Joshua Kelley HPI: 09/07 10:20 This 89 yrs old Female presents to ER via Wheelchair with complaints of Infected toe. rt 10:20 Patient presents to the ED with an infection to the right great toe. Has known rt peripheral vascular disease, sent by Dr. Moreno, he will perform an arterial gram in the hospital. Reports mild pain to the area. Denies any complaints, symptoms are moderate in severity, no other aggravating or alleviating factors.. Historical: - Allergies: 10:17 Codeine (Vomiting); jl7 - Home Meds: 10:17 amlodipine 5 mg tab 1 tab once daily [Active]; glipizide 5 mg Oral tab 1 tab 2 times jl7 per day [Active]; levothyroxine 100 mcg tab 1 tab once daily [Active]; metformin 1 Oral tab 1 tab 2 times per day [Active]; Pepcid 20 mg oral tablet 2 times per day [Active]; losartan oral [Active]; Prolia subcutaneous [Active]; - PMHx: 10:17 Diabetes - NIDDM; Hypertension; Hypothyroidism; Sleep Apnea; T12 fracture; Osteoporosis;jl7 - Immunization history:: Adult Immunizations up to date. - Infectious Disease History:: Denies. - Social history:: Smoking status: Patient denies any tobacco usage or history of. - Family history:: not pertinent. ROS: 10:20 Constitutional: Negative for fever, chills, and weight loss, Cardiovascular: Negative rt for chest pain, palpitations, and edema, Respiratory: Negative for shortness of breath, cough, wheezing, and pleuritic chest pain, Abdomen/GI: Negative for abdominal pain, nausea, vomiting, diarrhea, and constipation, 10:20 MS/extremity: Positive for erythema, pain, Exam: 10:20 Constitutional: This is a well developed, well nourished patient who is awake, alert, rt and in no acute distress. Head/Face: Normocephalic, atraumatic. Chest/axilla: Normal chest wall appearance and motion. Nontender with no deformity. No lesions are appreciated. Cardiovascular: Regular rate and rhythm with a normal S1 and S2. No gallops, murmurs, or rubs. Normal PMI, no JVD. No pulse deficits. Respiratory: Lungs have equal breath sounds bilaterally, clear to auscultation and percussion. No rales, rhonchi or wheezes noted. No increased work of breathing, no retractions or nasal flaring. Abdomen/GI: Soft, non-tender, with normal bowel sounds. No distension or tympany. No guarding or rebound. No evidence of tenderness throughout. Neuro: Awake and alert, GCS 15, oriented to person, place, time, and situation. Cranial nerves II-XII grossly intact. Motor strength 5/5 in all extremities. Sensory grossly intact. Cerebellar exam normal. Normal gait. 10:20 Musculoskeletal/extremity: Cellulitis, swelling to the right great toe, difficult to palpate pulse, however, the foot is not cold and is warm. No deformities noted.. 11:31 ECG was reviewed by the Attending Physician. rt Vital Signs: 10:17 BP 132 / 87; Pulse 100; Resp 17; Temp 98.7; Pulse Ox 99% ; Weight 53.52 kg; Height 5 jl7 ft. 0 in. ; Pain 3/10; 12:05 BP 146 / 73; Pulse 82; Resp 15; Pulse Ox 98% ; ko1 13:00 BP 160 / 79; Pulse 86; Resp 15; Pulse Ox 97% ; cm10 14:00 BP 167 / 83; Pulse 92; Resp 15; Pulse Ox 94% ; cm10 15:00 BP 152 / 79; Pulse 91; Resp 18; Pulse Ox 96% ; cm10 16:00 BP 161 / 75; Pulse 90; Resp 15; Pulse Ox 95% ; cm10 16:30 BP 173 / 83; Pulse 93; Resp 15; Pulse Ox 95% ; cm10 17:00 BP 146 / 83; Pulse 93; Resp 15; Pulse Ox 95% ; cm10 10:17 Body Mass Index 23.05 (53.52 kg, 152.4 cm) jl7 10:17 Pain Scale: Adult jl7 MDM: 10:10 Medical Screening Exam initiated rt 15:03 Differential Diagnosis Osteomyelitis, peripheral arterial disease, cellulitis. Data rt reviewed: vital signs, nurses notes, lab test result(s), EKG, radiologic studies. Consideration of Admission/Observation Patient was admitted/placed on observation. Management of patient was discussed with the following: Pr Intern: Discussed with Dr. Moreno, will do arterial studies tomorrow.. I considered the following discharge prescriptions or medication management in the emergency department Medications were administered in the Emergency Department. See MAR. Independent interpretation of the following test(s) in the Emergency Department X-Ray: My interpretation is No fracture seen on interpretation of x-ray images. Test considered but Not performed: Ultrasound Arterial studies to be done by cardiology tomorrow, will hold off on ultrasound right now.. Care significantly affected by the following chronic conditions: Diabetes, Hypertension. Counseling: I had a detailed discussion with the patient and/or guardian regarding the historical points, exam findings, and any diagnostic results supporting the discharge/admit diagnosis, lab results, radiology results, the need for further work-up and treatment in the hospital. Response to treatment: There is no appreciated change of the patient's symptoms at this time. 09/07 10:18 Order name: Blood Culture Adult (2) rt 09/07 10:18 Order name: CBC with Diff; Complete Time: 11:31 rt 09/07 10:18 Order name: CMP; Complete Time: 14:59 rt 09/07 10:18 Order name: Lactate w/ 2H reflex if indic.; Complete Time: 13:13 rt 09/07 10:18 Order name: Protime (+inr); Complete Time: 14:59 rt 09/07 10:18 Order name: Ptt, Activated; Complete Time: 14:59 rt 09/07 17:04 Order name: Thyroid Stimulating Hormone EDIN 09/07 17:04 Order name: Urinalysis w/ reflexes EDIN 09/07 17:04 Order name: CBC with Automated Diff EDMS 09/07 17:04 Order name: CBC with Automated Diff EDMS 09/07 17:04 Order name: CBC with Automated Diff EDMS 09/07 17:04 Order name: Comprehensive Metabolic Panel EDIN 09/07 17:04 Order name: Comprehensive Metabolic Panel EDIN 09/07 17:04 Order name: Comprehensive Metabolic Panel EDIN 09/07 17:04 Order name: Lipid Profile EDIN 09/07 17:04 Order name: Lipid Profile EDIN 09/07 17:04 Order name: Magnesium EDIN 09/07 17:04 Order name: Magnesium EDIN 09/07 17:04 Order name: Magnesium EDMS 09/07 17:04 Order name: Phosphorus EDMS 09/07 17:04 Order name: Phosphorus EDMS 09/07 17:04 Order name: Phosphorus EDMS 09/07 17:04 Order name: Protime (+INR) EDMS 09/07 17:04 Order name: Protime (+INR) EDMS 09/07 17:04 Order name: Protime (+INR) EDMS 09/07 10:18 Order name: Foot Right 3 View XRAY; Complete Time: 11:12 rt 09/07 10:18 Order name: EKG; Complete Time: 10:19 rt 09/07 17:04 Order name: CONS Physician Consult EDMS 09/07 10:18 Order name: Accucheck; Complete Time: 14:28 rt 09/07 10:18 Order name: Cardiac monitoring; Complete Time: 10:46 rt 09/07 10:18 Order name: EKG - Nurse/Tech; Complete Time: 10:46 rt 09/07 10:18 Order name: IV Saline Lock - Large Bore; Complete Time: 11:30 rt 09/07 10:18 Order name: Labs collected and sent; Complete Time: 11:30 rt 09/07 10:18 Order name: O2 Per Protocol; Complete Time: 10:25 rt 09/07 10:18 Order name: O2 Sat Monitoring; Complete Time: 10:25 rt 09/07 10:18 Order name: Vital Signs; Complete Time: 10:46 rt 09/07 12:32 Order name: Misc. Order: recollect green top; Complete Time: 14:23 jl7 EC:31 Rate is 77 beats/min. Rhythm is regular, Normal Sinus Rhythm with No ectopy. Left axis rt deviation noted. AL interval is normal. QRS interval is normal. QT interval is normal. No Q waves. No ST changes noted. Administered Medications: 11:10 Drug: Rocephin - Rocephin (cefTRIAXone) IVPB 2 grams IVPB once over 30 mins; (mix in ko1 100 mL NS) Route: IVPB; Infused Over: 30 mins; Site: right wrist; 11:17 Follow up: Response: No adverse reaction; IV Status: Completed infusion; IV Intake: [id number] 11:40 Follow up: Response: No adverse reaction; IV Status: Completed infusion; IV Intake: [id number] 11:14 Drug: vancoMYCIN IVPB 1 grams IVPB once over 2 hrs Route: IVPB; Infused Over: 2 hrs; ko1 Site: right wrist; 13:15 Follow up: Response: No adverse reaction; IV Status: Completed infusion; IV Intake: cm10 250ml Disposition Summary: 09/07/24 14:45 Hospitalization Ordered Notes: Hospitalization Status: Inpatient Admission rt Provider: Velasquez Maurer rt Condition: Fair rt Problem: new rt Symptoms: are unchanged rt Bed/Room Type: Standard rt Location: Telemetry/MedSurg (Inpatient)(09/07/24 16:15) ss Room Assignment: [facility](09/07/24 18:02) ss Diagnosis - Cellulitis to right lower extremity rt - Osteomyelitis to right great toe rt Forms: - Medication Reconciliation Form rt - SBAR form rt - Leadership Thank You Letter rt Signatures: Dispatcher [employer] EDMS Annia Lam Shelby, RN RN ss Leo Miles RN RN [email or web address] Pratibha Rodriguez RN RN ko1 Joshua Kelley MD MD rt Serina Reyes RN cm10 Corrections: (The following items were deleted from the chart) 16:01 14:45 Telemetry/MedSurg (Inpatient) rt jl7 16:01 14:45 rt jl7 16:15 16:01 [facility] ER HOLD jl7 ss 16:15 16:01 ERHOLD- jl7 ss 17:21 16:15 ss bd 18:02 17:21 423 bd ss
[2024-09-07 14:48] LABS: Albumin 3.6 g/dL (3.4-5.0); Albumin/Globulin Ratio 0.9 (1.1-1.8); Anion Gap 13.8 mEq/L (5.0-15.0); Bilirubin Total 0.6 mg/dL (0.2-1.0); Globulin 3.9 g/dL (2.3-3.5); Potassium 3.8 mEq/L (3.5-5.1); Protein, Total 7.5 g/dL (6.4-8.2)
--- NOTE | 2024-09-07 16:56 | P.HP ---
Certification for Inpatient Patient admitted to: Observation With expected LOS: <2 Midnights Patient will require the following post-hospital care: None Practitioner: I am a practitioner with admitting privileges, knowledge of patient current condition, hospital course, and medical plan of care. Services: Services provided to patient in accordance with Admission requirements found in Title 42 Section 412.3 of the Code of Federal Regulations Patient History Date of Service: 09/07/24 Reason for admission: angiogram of lower extremity History of Present Illness: Ms. Melanie Kerr is a very pleasant 89-year-old female with past medical history of diabetes, hypertension, obstructive sleep apnea, hypothyroidism, and GERD. A week ago she dropped a can on her right foot and fractured her first metatarsal. She had an appointment with Dr. Moreno today and he noted that her right dorsal foot was a bit erythematous with some pallor to her toes. He sent her to the emergency department to be admitted for angiogram of the right lower extremity tomorrow. Ms. Kerr understands the plan of care and has no complaints. She denies pain. Dinner was brought to her and then she will be n.p.o. after midnight for the procedure. education supervisor was notified of need for the OR. Allergies codeine Allergy (Intermediate, Verified 07/21/19 18:29) Nausea/Vomiting Home medications list reviewed: Yes Home Medications: Abaloparatide [Tymlos] 80 mcg SQ DAILY 07/21/19 Amlodipine [Norvasc*] 1 tab PO DAILY 6PM 07/21/19 Ascorbic Acid [Vitamin C] 1 tab PO BID 07/21/19 Cholecalciferol (Vitamin D3) [Vitamin D3] 1 tab PO DAILY 07/21/19 Famotidine [Pepcid*] 20 mg PO BID 07/21/19 Levothyroxine [Synthroid*] 1 tab PO [id number] 07/21/19 Losartan/Hydrochlorothiazide [Losartan-Hctz 50-12.5 mg Tab] 1 tab PO DAILY 07/21/19 Metformin HCl [Glucophage] 1 tab PO BID 07/21/19 Potassium Chloride 1 tab PO DAILY 07/21/19 Ubidecarenone/Vit E/Vit E Mix [Co-Enzyme Q10 100 mg Softgel] 1 cap PO BEDTIME 07/21/19 Vitamin B Complex [Vitamin B Complex*] 1 cap PO DAILY 07/21/19 Vitamin E 1 cap PO DAILY 07/21/19 glipiZIDE [Glipizide] 1 tab PO BID 07/21/19 Atorvastatin Calcium 40 mg PO BEDTIME 30 Days #30 tablet 07/22/19 - Past Medical/Surgical History Diabetic: Yes -: Diabetes -: Hypertension -: VIKTORIYA -: Hypothyroidism -: GERD -: R shoulder -: R knee Psychosocial/ Personal History: Alert and oriented. No complaints. - Social History Smoking Status: Never smoker Alcohol use: No CD- Drugs: No Caffeine use: Yes Review of Systems 10-point ROS is otherwise unremarkable General: Unremarkable Eyes: Unremarkable ENT: Unremarkable Respiratory: Unremarkable Cardiovascular: Unremarkable Gastrointestinal: Unremarkable Genitourinary: Unremarkable Musculoskeletal: As per HPI Integumentary: As per HPI Neurological: Unremarkable Lymphatics: Unremarkable Physical Examination - Physical Exam General: Alert, In no apparent distress, Oriented x3, Cachectic HEENT: Atraumatic, Normocephalic, PERRLA Neck: Supple Respiratory: Clear to auscultation bilaterally, Normal air movement Cardiovascular: Normal pulses, Regular rate/rhythm Capillary refill: <2 Seconds Gastrointestinal: Normal bowel sounds Musculoskeletal: No swelling, Other (Tenderness to right great metatarsal area) Integumentary: Erythema, Other (PAD) Neurological: Normal speech, Normal tone, Normal affect Lymphatics: No axilla or inguinal lymphadenopathy External genitalia: Deferred Rectal: Deferred - Studies Laboratory Data (last 24 hrs) 09/07/24 09/07/24 09/07/24 14:19 14:19 11:09 WBC 9.20 Hgb 14.4 Hct 41.7 Plt Count 270 PT 11.4 INR 1.09 APTT 27.5 Sodium 135 L Potassium 3.8 BUN 12 Creatinine 0.52 L Glucose 125 H Total Bilirubin 0.6 AST 22 ALT 20 Alkaline Phosphatase 53 Assessment and Plan - Plan PAD Diabetic foot Consult cardiology for angiogram Strict blood sugar control, monitor, trend, and replete electrolytes Antibiotics Pain control Hypertension, VIKTORIYA, hypothyroidism, GERD Continue home meds VTE prophylaxis SCDs - Advance Directives Does patient have a Living Will: Yes Does patient have a Durable POA for Healthcare: Yes
[2024-09-07] MEDS ORDERED: HYDROCODONE/APAP 5/325 MG TAB PO PRN (16:57)
[2024-09-07 20:11] VITALS: BMI 22.8
[2024-09-07] MEDS: MONTELUKAST 10 MG TAB PO SCH (20:53)
[2024-09-07] MEDS: ACETAMINOPHEN 325 MG TABLET PO PRN (20:53)
[2024-09-08] MEDS: INSULIN REGULAR (HUMAN) 100 UNIT/ML SQ SCH
[2024-09-08] MEDS: LEVOTHYROXINE SOD 0.1 MG TAB PO SCH (06:30)
[2024-09-08 06:48] LABS: Absolute Lymphocytes (CBC) 0.9 K/uL (0.7-4.9); Absolute Monocytes 0.9 K/uL (0.1-1.3); Absolute Neutrophil 7.8 K/uL (1.8-8.0); Basophils % 0.4 % (0-1.3); Eosinophils % 0.5 % (0-4.4); Hematocrit 41.6 % (36.0-45.0); Lymphocytes % 9.3 % (15.3-44.8); MCH 32.9 pg (27.0-35.0); MCHC 33.6 g/dL (32.0-36.0); MCV 97.9 fL (80-100); MPV 7.8 fL (7.6-11.3); Monocytes % 8.9 % (3.3-12.3); Neutrophils % 80.9 % (41.7-73.7); Nucleated Red Blood Cells % 0.1 % (0-0); Platelets 295 thou/uL (152-406); RBC Red Blood Cell Count 4.25 M/uL (3.86-4.86); Red Cell Distribution Width 14.2 % (12.1-15.2)
[2024-09-08 07:00] LABS: Protime INR 1.14
[2024-09-08 07:20] LABS: Albumin 3.1 g/dL (3.4-5.0); Albumin/Globulin Ratio 0.9 (1.1-1.8); Anion Gap 14.8 mEq/L (5.0-15.0); Bilirubin Total 0.7 mg/dL (0.2-1.0); Globulin 3.3 g/dL (2.3-3.5); Magnesium 1.8 mg/dL (1.6-2.4); Phosphorus 3.6 mg/dL (2.5-4.9); Potassium 3.8 mEq/L (3.5-5.1); Protein, Total 6.4 g/dL (6.4-8.2)
[2024-09-08] MEDS: MAGNESIUM SULFATE 1 gm IVPB 1 GM/100 ML BAG IV ONE (09:00)
[2024-09-08] MEDS: AMLODIPINE 5 MG TAB PO SCH (09:00)
[2024-09-08] MEDS: ASPIRIN EC 81 MG TAB PO SCH (09:00)
--- NOTE | 2024-09-08 09:43 | P.CNS ---
Date of Consult: 09/08/24 Chief Complaint: angiogram of lower extremity History of Present Illness: Patient with PMH of HTN, HLD, DM, presented as a direct admit from cardiology office (Dr. Moreno) for possible PAD and need for peripheral angiogram, patient report dropping a can on her foot about a week ago and broke her first metatarsal bone, report pain in the area. Allergies codeine Allergy (Intermediate, Verified 07/21/19 18:29) Nausea/Vomiting Home medications list reviewed: Yes Home Medications: Abaloparatide [Tymlos] 80 mcg SQ DAILY 07/21/19 Amlodipine [Norvasc*] 1 tab PO DAILY 6PM 07/21/19 Ascorbic Acid [Vitamin C] 1 tab PO BID 07/21/19 Cholecalciferol (Vitamin D3) [Vitamin D3] 1 tab PO DAILY 07/21/19 Famotidine [Pepcid*] 20 mg PO BID 07/21/19 Levothyroxine [Synthroid*] 1 tab PO [id number] 07/21/19 Losartan/Hydrochlorothiazide [Losartan-Hctz 50-12.5 mg Tab] 1 tab PO DAILY 07/21/19 Metformin HCl [Glucophage] 1 tab PO BID 07/21/19 Potassium Chloride 1 tab PO DAILY 07/21/19 Ubidecarenone/Vit E/Vit E Mix [Co-Enzyme Q10 100 mg Softgel] 1 cap PO BEDTIME 07/21/19 Vitamin B Complex [Vitamin B Complex*] 1 cap PO DAILY 07/21/19 Vitamin E 1 cap PO DAILY 07/21/19 glipiZIDE [Glipizide] 1 tab PO BID 07/21/19 Atorvastatin Calcium 40 mg PO BEDTIME 30 Days #30 tablet 07/22/19 - Past Medical/Surgical History Diabetic: Yes -: Diabetes -: Hypertension -: VIKTORIYA -: Hypothyroidism -: GERD -: R shoulder -: R knee Psychosocial/ Personal History: Alert and oriented. No complaints. - Social History Smoking Status: Never smoker Alcohol use: No CD- Drugs: No Caffeine use: Yes Place of Residence: [facility] Review of Systems 10-point ROS is otherwise unremarkable Physical Examination Temp Pulse Resp BP Pulse Ox 97.4 F 100 H 18 150/72 H 98 09/08/24 04:00 09/08/24 09:00 09/08/24 04:00 09/08/24 09:00 09/08/24 04:00 General: Alert, In no apparent distress HEENT: Atraumatic, PERRLA, Mucous membr. moist/pink, EOMI, Sclerae nonicteric Neck: Supple, 2+ carotid pulse no bruit, No LAD, Without JVD or thyroid abnormality Respiratory: Clear to auscultation bilaterally, Normal air movement Cardiovascular: Regular rate/rhythm, Normal S1 S2 Gastrointestinal: Normal bowel sounds, No tenderness Musculoskeletal: No tenderness Integumentary: No rashes Neurological: Normal gait, Normal speech, Normal tone, Normal affect Lymphatics: No axilla or inguinal lymphadenopathy Laboratory Data (last 24 hrs) 09/07/24 09/07/24 09/07/24 14:19 14:19 11:09 WBC 9.20 Hgb 14.4 Hct 41.7 Plt Count 270 PT 11.4 INR 1.09 APTT 27.5 Sodium 135 L Potassium 3.8 BUN 12 Creatinine 0.52 L Glucose 125 H Total Bilirubin 0.6 AST 22 ALT 20 Alkaline Phosphatase 53 - Problems (1) Peripheral artery disease Current Visit: Yes Status: Acute Plan: patient got pain at the first metatarsal bone, she says her big toe color is better today, looks red for me on exam, XR shows possible osteomyelitis. recommend further imaging and possible ABX keep NPO for peripheral angiogram continue ASA.
[2024-09-08] MEDS: FLUCONAZOLE 100 MG TAB PO ONE (10:06)
--- NOTE | 2024-09-08 10:24 | P.PN ---
Date of Service: 09/08/24 History of Present Illness: Ms. Melanie Kerr is a very pleasant 89-year-old female with past medical history of diabetes, hypertension, obstructive sleep apnea, hypothyroidism, and GERD. A week ago she dropped a can on her right foot and fractured her first metatarsal. She had an appointment with Dr. Moreno today and he noted that her right dorsal foot was a bit erythematous with some pallor to her toes. He sent her to the emergency department to be admitted for angiogram of the right lower extremity tomorrow. Ms. Kerr understands the plan of care and has no complaints. She denies pain. Dinner was brought to her and then she will be n.p.o. after midnight for the procedure. supervisor dock was notified of need for the OR. Review of Systems 10-point ROS is otherwise unremarkable General: Unremarkable Eyes: Unremarkable ENT: Unremarkable Respiratory: Unremarkable Cardiovascular: Unremarkable Gastrointestinal: Unremarkable Genitourinary: Unremarkable Musculoskeletal: As per HPI Integumentary: As per HPI Neurological: Unremarkable Lymphatics: Unremarkable Physical Examination - Physical Exam General: Alert, In no apparent distress, Oriented x3, Cachectic HEENT: Atraumatic, Normocephalic, PERRLA Neck: Supple Respiratory: Clear to auscultation bilaterally, Normal air movement Cardiovascular: Normal pulses, Regular rate/rhythm Capillary refill: <2 Seconds Gastrointestinal: Normal bowel sounds Musculoskeletal: No swelling, Other (Tenderness to right great metatarsal area) Integumentary: Erythema, Other (PAD) Neurological: Normal speech, Normal tone, Normal affect Lymphatics: No axilla or inguinal lymphadenopathy External genitalia: Deferred Rectal: Deferred - Studies Laboratory Data (last 24 hrs) 09/07/24 09/07/24 09/07/24 14:19 14:19 11:09 WBC 9.20 Hgb 14.4 Hct 41.7 Plt Count 270 PT 11.4 INR 1.09 APTT 27.5 Sodium 135 L Potassium 3.8 BUN 12 Creatinine 0.52 L Glucose 125 H Total Bilirubin 0.6 AST 22 ALT 20 Alkaline Phosphatase 53 Assessment and Plan - Plan PAD Diabetic foot Consult cardiology for angiogram Strict blood sugar control, monitor, trend, and replete electrolytes Antibiotics given in ED. Will CT foot prior to continuing Vanc. Fungal infection to nails - Diflucan 150mg po x 1, until need for abx clearer Pain control offload heels ASA Hypertension, VIKTORIYA, hypothyroidism, GERD Continue home meds VTE prophylaxis SCDs - Advance Directives Does patient have a Living Will: Yes Does patient have a Durable POA for Healthcare: Yes
--- NOTE | 2024-09-08 13:07 | RAD REPORT ---
EXAM: CT of the right foot without contrast HISTORY: [facility] MAIN eval for osteo. Right great toe abnormality on x-ray COMPARISON: Right foot radiographs 08/29/2024 TECHNIQUE: Thin axial noncontrast CT images were obtained of the right foot without IV contrast. Mult iplanar reformats were generated and reviewed. One or more of the following dose reduction techniques were used: Automated exposure control, adjustment of the mA and kV according to patient si ze, and iterative reconstruction. Unless otherwise specified, incidental findings do not require dedicated imaging follow-up. FINDINGS: Joint alignment is maintained. Mild diffuse osteopenia limits evaluation. Osseous destructive changes involving the base of the great toe distal phalanx especially along the medial and superior cortex. Surrounding soft tissue swelling. No other acute fractures or suspicious focal osseous lesion s. No focal fluid collection is seen in the soft tissues. Extensive medial calcifications throughout the medium sized vessels, may reflect long-standing sequel ae of diabetes mellitus. Small calcaneal spur. Enthesopathy at the Achilles tendon attachment. Mild subcutaneous edema along t he distal lower leg. Up to moderate degenerative changes along the mid foot. The muscles and tendons appear intact. IMPRESSION: Osseous destructive changes involving the base of the great toe distal phalanx, with there is concern for ongoing osteomyelitis in the appropriate clinical setting. Other findings as above.
[2024-09-08] MEDS ORDERED: HYDROCORTISONE ACETATE 25MG SUPP PR PRN (14:11)
[2024-09-08] MEDS: D5 0.45 NS 1,000 ML IV SCH (16:11)
[2024-09-08] MEDS: lisinopriL 10 MG TAB PO ONE (16:54)
[2024-09-08] MEDS ORDERED: AMLODIPINE 5 MG TAB PO SCH (18:00)
[2024-09-08] MEDS: POTASSIUM CL SA 10 MEQ TAB PO ONE (20:00)
[2024-09-08] MEDS: NYSTATIN PWDR 100000 UNIT/GM TOP SCH (20:24)
[2024-09-08] MEDS: ENSURE ENLIVE 237 ML CAN PO SCH (20:24)
[2024-09-08] MEDS: MONTELUKAST 10 MG TAB PO SCH (20:25)
[2024-09-08] MEDS: GABAPENTIN 100 MG CAP PO SCH (20:25)
[2024-09-08] MEDS: ACETAMINOPHEN 325 MG TABLET PO SCH (20:25)
[2024-09-09] MEDS: LEVOTHYROXINE SOD 0.1 MG TAB PO SCH (06:00)
[2024-09-09 06:42] LABS: Absolute Basophils 0.1 K/uL (0-0.5); Absolute Eosinophils 0.1 K/uL (0-0.5); Absolute Monocytes 0.7 K/uL (0.1-1.3); Absolute Neutrophil 7.4 K/uL (1.8-8.0); Basophils % 0.7 % (0-1.3); Eosinophils % 1.1 % (0-4.4); Hematocrit 41.9 % (36.0-45.0); Hemoglobin 14.1 g/dL (12.0-15.0); Lymphocytes % 11.2 % (15.3-44.8); MCHC 33.6 g/dL (32.0-36.0); MCV 98.2 fL (80-100); MPV 7.7 fL (7.6-11.3); Monocytes % 7.9 % (3.3-12.3); Neutrophils % 79.1 % (41.7-73.7); Nucleated Red Blood Cells % 0.1 % (0-0); Platelets 283 thou/uL (152-406); RBC Red Blood Cell Count 4.26 M/uL (3.86-4.86)
[2024-09-09 06:54] LABS: PT Prothrombin Time 12.1 SECONDS (9.4-12.5); Protime INR 1.15
[2024-09-09 07:02] LABS: Albumin 2.8 g/dL (3.4-5.0); Albumin/Globulin Ratio 0.8 (1.1-1.8); Bilirubin Total 0.5 mg/dL (0.2-1.0); Globulin 3.3 g/dL (2.3-3.5); Magnesium 2.2 mg/dL (1.6-2.4); Protein, Total 6.1 g/dL (6.4-8.2)
[2024-09-09] MEDS: MUPIROCIN 2% OINT 22GM TUBE TOP SCH (09:00)
[2024-09-09] MEDS: VALSARTAN 160 MG TAB PO SCH (09:00)
[2024-09-09] MEDS: HOME MED 1 EA UNK (Empagliflozin [Jardiance] 25 MG Tablet) PO SCH (09:00)
[2024-09-09] MEDS ORDERED: lisinopriL 10 MG TAB PO SCH (09:00)
[2024-09-09] MEDS ORDERED: TELMISARTAN 80 MG PO SCH (09:00)
[2024-09-09] MEDS: ASPIRIN 81 MG CHEWABLE TABLET PO SCH (10:32)
[2024-09-09] MEDS ORDERED: HEPA 1000U/500MLS 2,000 UNIT/1,000 ML BAG IV ONE (14:26)
[2024-09-09] MEDS ORDERED: HEPARIN 10,000 UNIT/10 ML VIAL IV ONE (14:27)
[2024-09-09] MEDS ORDERED: LIDOCAINE 1% 20 ML MDV ONE (14:27)
[2024-09-09] MEDS ORDERED: NITROGLYCERIN/D5W 50 MG/250 ML BTL IV ONE (14:27)
[2024-09-09] MEDS ORDERED: MIDAZOLAM HCL 2 MG/2 ML INJ ONE (14:27)
[2024-09-09] MEDS ORDERED: ATROPINE SULF 1 MG/10 ML SYR IV ONE (14:27)
[2024-09-09] MEDS ORDERED: FENTANYL CITR 100 MCG/2 ML ONE (14:28)
[2024-09-09] MEDS ORDERED: CLOPIDOGREL 75 MG TABLET ONE (15:53)
--- NOTE | 2024-09-09 16:44 | P.PN ---
Subjective Date of Service: 09/09/24 Chief Complaint: angiogram of lower extremity Subjective: No new changes, No C/O voiced, Tolerating diet, Ambulating, Improving Review of Systems 10-point ROS is otherwise unremarkable Physical Examination - Vital Signs Temperature: 98.2 F Blood Pressure: 124/69 Pulse: 92 Respirations: 16 Pulse Ox (%): 99 - Physical Exam General: Alert, In no apparent distress HEENT: Atraumatic, PERRLA, EOMI Neck: Supple, JVD not distended Respiratory: Clear to auscultation bilaterally, Normal air movement Cardiovascular: Regular rate/rhythm, Normal S1 S2 Gastrointestinal: Normal bowel sounds, No tenderness Musculoskeletal: No tenderness Integumentary: No rashes Neurological: Normal speech, Normal tone, Normal affect Lymphatics: No axilla or inguinal lymphadenopathy - Studies Microbiology Data (last 24 hrs): 09/07/24 11:09 Blood - Blood Anaerobic Blood Culture - Final Medications List Reviewed: Yes Assessment And Plan - Current Problems (Diagnosis) (1) Peripheral artery disease Current Visit: Yes Status: Acute Plan: patient got pain at the first metatarsal bone, she says her big toe color is better today, looks red for me on exam, CT scan shows osteomyelitis. peripheral angiogram done and ADVANCED MANUFACTURING CONSULTANT of significant right distal SFA disease was done continue ASA. continue Plavix 75 mg daily
--- NOTE | 2024-09-09 17:10 | P.PN ---
Date of Service: 09/09/24 History of Present Illness: Ms. Melanie Kerr is a very pleasant 89-year-old female with past medical history of diabetes, hypertension, obstructive sleep apnea, hypothyroidism, and GERD. A week ago she dropped a can on her right foot and fractured her first metatarsal. She had an appointment with Dr. Moreno today and he noted that her right dorsal foot was a bit erythematous with some pallor to her toes. He sent her to the emergency department to be admitted for angiogram of the right lower extremity tomorrow. Ms. Kerr understands the plan of care and has no complaints. She denies pain. Dinner was brought to her and then she will be n.p.o. after midnight for the procedure. bakery machine mechanic supervisor was notified of need for the OR. Review of Systems 10-point ROS is otherwise unremarkable General: Unremarkable Eyes: Unremarkable ENT: Unremarkable Respiratory: Unremarkable Cardiovascular: Unremarkable Gastrointestinal: Unremarkable Genitourinary: Unremarkable Musculoskeletal: As per HPI Integumentary: As per HPI Neurological: Unremarkable Lymphatics: Unremarkable Physical Examination - Physical Exam General: Alert, In no apparent distress, Oriented x3, Cachectic HEENT: Atraumatic, Normocephalic, PERRLA Neck: Supple Respiratory: Clear to auscultation bilaterally, Normal air movement Cardiovascular: Normal pulses, Regular rate/rhythm Capillary refill: <2 Seconds Gastrointestinal: Normal bowel sounds Musculoskeletal: No swelling, Other (Tenderness to right great metatarsal area with decreasing erythema, tinea unguium) Integumentary: Erythema, Other (PAD) Neurological: Normal speech, Normal tone, Normal affect Lymphatics: No axilla or inguinal lymphadenopathy External genitalia: Deferred Rectal: Deferred - Studies Laboratory Data (last 24 hrs) 09/07/24 09/07/24 09/07/24 14:19 14:19 11:09 WBC 9.20 Hgb 14.4 Hct 41.7 Plt Count 270 PT 11.4 INR 1.09 APTT 27.5 Sodium 135 L Potassium 3.8 BUN 12 Creatinine 0.52 L Glucose 125 H Total Bilirubin 0.6 AST 22 ALT 20 Alkaline Phosphatase 53 Assessment and Plan - Plan PAD Diabetic foot Consult cardiology for angiogram Strict blood sugar control, monitor, trend, and replete electrolytes Antibiotics given in ED. Will CT foot prior to continuing Vanc. Fungal infection to nails - Diflucan 150mg po x 1, until need for abx clearer Pain control offload heels - heel protectors intact, pt states her heels feel better ASA Plavix Hypertension, VIKTORIYA, hypothyroidism, GERD Continue home meds VTE prophylaxis SCDs - Advance Directives Does patient have a Living Will: Yes Does patient have a Durable POA for Healthcare: Yes
[2024-09-09] MEDS: AMLODIPINE 5 MG TAB PO SCH (19:28)
--- NOTE | 2024-09-10 03:01 | OP ---
Date of Procedure: 09/09/2024 Surgeon: Derik Harrison Procedure Performed: 1. Peripheral angiogram with runoff. 2. SQL SSRS SSIS DEVELOPER of right distal SFA. Indication For Procedure: Resting leg pain with the right big toe discoloration. Complications: None. Estimated Blood Loss: Less than 50 cc. Access: Left common femoral artery closed by an Angio-Seal. Sedation Time: 40 minutes with 2 of Versed and 50 of fentanyl. Description Of Procedure: After risks, benefits, and alternatives were explained to the patient, the patient agreed to proceed with procedure and signed informed consent. The patient was brought back to the research laboratory manager, prepped and draped in sterile fashion. Time-out was performed. Sedation was admini stered. Next, left common femoral artery ultrasound-guided micropuncture technique access was obtain ed. A 5-Hungarian sheath was introduced. An Omni Flush catheter was advanced to the lower abdominal ao rta for the peripheral runoffs. That catheter was later exchanged for a 6-Hungarian Destination cathete r into the right SFA. A Glidewire Advantage was advanced across the lesions. SQL SSRS SSIS DEVELOPER of the right dista l SFA was done with a 3.0 mm balloon followed by drug-coated balloons that is 4.0 x 80 mm in length. Repeat angiogram shows MER-3 flow. Later on, we exchanged the Glidewire Advantage with a microcath eter and guidewire was attempted to pass into the posterior tibial artery, but unable to cross due to significant calcifications, so procedure was aborted. The final angiogram shows MER-[address] was removed over a J-wire. Sheath was removed and Angio-Seal applied. Hemostasis achieved and t he patient was left to Recovery in stable condition. Findings: 1. Lower abdominal aorta is significantly calcified, but no lesions. 2. Right common iliac, common external iliac, common femoral artery is patent. 3. Right SFA severe calcifications with distal 80% disease, status post SQL SSRS SSIS DEVELOPER with a drug-coated balloo n. 4. Right anterior tibial/peroneal is patent. 5. Right posterior tibial is occluded, failed attempt to cross. 6. Left common iliac, external iliac, IRRIGATION INSTALLATION SPECIALIST was patent. 7. Left SFA diffuse heavy calcifications with diffuse 30% to 40% disease. 8. Left anterior tibial/peroneal is patent. 9. Left posterior tibial is occluded. Assessment And Plan: 1. Significant distal right SFA disease, status post SQL SSRS SSIS DEVELOPER with drug-coated balloon. 2. Significant right posterior tibial artery, failed attempt to cross. 3. Two runoffs on the right leg. 4. Two runoffs on the left leg. Plan: 1. Aspirin 81 mg daily for life. 2. Plavix load was given in the research laboratory manager, continue Plavix 75 mg daily. JOYCE/MODL Voice ID: [id number] Report ID: [id number]
[2024-09-10] MEDS: CLOPIDOGREL 75 MG TABLET PO SCH (09:01)
--- NOTE | 2024-09-10 13:29 | P.PN ---
Subjective Date of Service: 09/10/24 Chief Complaint: angiogram of lower extremity This is a Tele-Medicine visit. Verbal consent was obtained prior to visit. She was seen today on rounds. She states that her pain is well controlled. She denies any fevers or chills. Review of Systems General: Unremarkable Respiratory: Unremarkable Cardiovascular: Unremarkable Gastrointestinal: Unremarkable Physical Examination - Vital Signs Temperature: 97.6 F Blood Pressure: 154/74 Pulse: 92 Respirations: 16 Pulse Ox (%): 97 - Physical Exam General: Alert, In no apparent distress, Oriented x3 HEENT: Atraumatic Respiratory: Other (no respiratory distress) Other Physical/Emotional Findings: Exam limited as this is a Tele-Medicine visit - Studies Medications List Reviewed: Yes Assessment And Plan - Plan # Severe Peripheral Artery Disease complicated by Right Great Toe Osteomyelitis - Cardiology (Dr. Harrison) consulted - recs appreciated - s/p peripheral anigogram with MINE EXPERT of right distal SFA - General Surgery (Dr. 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 Obtain General Surgery consultation. On-site physician (Dr. Mercado) will re-asses her in the morning. Vadim Michel M.D.
[2024-09-10] MEDS: CEFTRIAXONE 1,000 MG in NA CHLORIDE 0.9% 50 ML IVPB SCH (15:21)
[2024-09-10] MEDS: VANCOMYCIN 1.5 GM in NA CHLORIDE 0.9% 500 ML IVPB ONE (17:31)
--- NOTE | 2024-09-10 19:11 | CON ---
Date of Consultation: 09/10/2024 Brief Hpi: The patient is an 89-year-old female with past medical history of diabetes, hypertension, obstructive sleep apnea, hypothyroidism, peripheral vascular disease, and GERD. She dropped a can o f soda on her foot about a week ago and it struck the first metatarsal of her right foot. She had an appointment with Dr. Moreno, who ultimately saw her foot and noted that she had some discoloration a nd pallor concerning for peripheral vascular disease, worsening condition, and as such, he brought th e patient in and ultimately decided she was appropriate for intervention for her significant peripher al arterial disease. She had noticed that there was some discoloration to the toe as well as increas ed pain to this area. The patient had a peripheral angiogram with runoff on 09/09/2024. I am consul tiffany to see the patient for her infection of her toe. The patient states the toe is predominantly ten red and painful at this point. Otherwise, she has no additional complaints. Allergies: INCLUDE CODEINE. Home Medications: Include Norvasc, Tymlos, vitamin C, vitamin D, Pepcid, Synthroid, losartan, Glucop onur, potassium chloride, coenzyme Q10, B12 complex, vitamin E, glipizide, atorvastatin. Past Medical History: Includes diabetes, hypertension, obstructive sleep apnea, hypothyroidism, GERD . Past Surgical History: She has had shoulder surgery on the right and right knee surgery as well and the angiogram is described during this admission. Social History: She denies smoking, alcohol, or recreational drug use. Review of Systems: 10 point review of systems other than HPI, she denies. Physical Examination: General: She is awake, alert, and oriented. Psychiatric: She is appropriate, conversive. HEENT: Normocephalic. Sclerae icteric. Mucous membranes moist. Oropharynx clear. Neck: Supple without JVD. Chest: Normal expansion and excursion. Cardiovascular: Regular rate and rhythm. Pulmonary: Clear to auscultation bilaterally. Abdomen: Soft, nontender. Extremities: No clubbing, cyanosis, edema. However, her right great toe does have some discoloratio n with small amounts of cellulitis to this area. Has tenderness, cellulitis, and swelling to this. It is tender to palpation. However, she states the redness has receded from where it was. The remai nder of her examination is unremarkable other than having decreased pallor and some coolness to bilat eral lower extremities. Laboratory Data: White blood cell count of 9.4, hemoglobin is 14.1, hematocrit of 41.9, platelet cou nt is 283. Her PT 12.1, INR 1.15. Her ACT was 398. Sodium 132, potassium 4.0, chloride 99, carbon dioxide 25, BUN 10, creatinine 0.37, glucose is 155. Calcium 8.4, phosphorus 3.0, magnesium 2.2. To funmilayo bilirubin 0.5, alkaline phosphatase is 42. She had imaging performed, which included a CT of the right foot which showed osseous destructive changes involving the base of the great toe distal phala nx. There is concern for ongoing osteomyelitis in the appropriate clinical setting. Assessment And Plan: This is an 89-year-old woman who comes in with infection of the right great toe and peripheral arterial disease, status post revascularization/angiogram. 1. IV fluid hydration. 2. Antibiotic coverage with IV antibiotics. 3. Topical Silvadene to be applied. 4. I have explained we will try to attempt limb salvage by seeing if she responds to antibiotic treat ment prior to any consideration of surgical intervention. However, if this worsens, she could requir e an amputation of this toe. I have explained risks, benefits, alternatives of surgical intervention , which could include amputation of the toe and possibly indicated procedures. The risks include, bu t not limited to bleeding, infection, damage to surrounding tissue, need for further operative proced ures, injury to other structures in the area, ongoing wound care, blood clots, heart attack, strokes, or other unforeseen complications in the perioperative period. We will try nonoperative management initially. The patient displayed understanding of the above stated plan and agreed to proceed as ind icated. Thank you for this interesting consult. DANIELLA/ZE Voice ID: [id number] Report ID: [id number]
[2024-09-10] MEDS: ATORVASTATIN 40 MG TAB PO SCH (21:09)
[2024-09-11] MEDS: INSULIN REGULAR (HUMAN) 100 UNIT/ML SQ SCH (07:30)
[2024-09-11] MEDS: SILVER SULFADIAZINE 1% 50 GM TOP SCH (08:19)
[2024-09-11] MEDS: VANCOMYCIN 1 GM in NA CHLORIDE 0.9% 250 ML IVPB SCH (09:30)
--- NOTE | 2024-09-11 11:24 | P.PN ---
Subjective Date of Service: 09/11/24 Chief Complaint: Right-sided diabetic toe infection Subjective: Improving (Is improving denies any discomfort has some paresthesias over the right knee by general surgery) Review of Systems Unremarkable Physical Examination - Vital Signs Temperature: 98.3 F Blood Pressure: 153/76 Pulse: 91 Respirations: 16 Pulse Ox (%): 99 - Physical Exam General: Alert, Oriented x3 Neck: Supple Respiratory: Clear to auscultation bilaterally Cardiovascular: Other (Patient's foot is wrapped in bandages) Other Physical/Emotional Findings: Exam limited as this is a Tele-Medicine visit - Studies Medications List Reviewed: Yes Assessment And Plan - Current Problems (Diagnosis) (1) Osteomyelitis of right foot Current Visit: Yes Status: Acute Plan: Patient is 89 years of age admitted with a possible osteomyelitis of the right foot post revascularization currently on IV antibiotic by general surgery surgery plans to do conservative treatment Since white count is normal no evidence of active sepsis will recheck labs
[2024-09-11] MEDS: ENOXAPARIN 30 MG/0.3 ML SQ SCH (13:37)
--- NOTE | 2024-09-12 12:21 | RAD REPORT ---
Procedure: Chest Single View HISTORY: PICC line placement FINDINGS: PICC line has been placed into the SVC
[2024-09-12] MEDS: Mupirocin NASAL 2 APPL/1 GM TUBE NAS SCH (20:53)
[2024-09-13 10:43] LABS: Specific Gravity 1.026 (1.005-1.030); Urine Bilirubin NEGATIVE (Negative); Urine Blood Negative (Negative); Urine Clarity Clear (Clear); Urine Color Light-Yellow (Yellow); Urine Glucose 4+ (Over) (Negative); Urine Ketones NEGATIVE (Negative); Urine Microscopic Reflex YN NO UMIC; Urine Nitrite NEGATIVE (Negative); Urine Protein NEGATIVE (Negative); Urine Urobilinogen Normal (Normal)
--- NOTE | 2024-09-13 12:41 | EKG ---
Test Date: 2024-09-07 Test Time: 10:42:45 [employer]: [employer] MEASUREMENT RESULTS: Intervals: Rate: 77 MA: 164 QRSD: 96 QT: 380 QTc: 430 Newell: P: 41 MA: 164 QRS: -61 T: 35 INTERPRETIVE STATEMENTS: Normal sinus rhythm Left axis deviation Anterolateral infarct, age undetermined Abnormal ECG Compared to ECG 07/21/2019 12:22:02 Left-axis deviation now present Left anterior fascicular block no longer present Myocardial infarct finding still present Electronically Signed On 09-13-24 12:24:17 [employer] by Derik Harrison
[2024-09-13] MEDS: VANCOMYCIN 1.25 GM in NA CHLORIDE 0.9% 250 ML IVPB SCH (14:31)
--- NOTE | 2024-09-15 02:52 | P.PN ---
Subjective Date of Service: 09/12/24 Patient is status post angioplasty and surgery. Patient will need IV antibiotics. Patient is clinically doing well. Will arrange for discharge planning with IV antibiotics at [facility]. Review of Systems 10-point ROS is otherwise unremarkable Physical Examination - Vital Signs Temperature: 98.2 F Blood Pressure: 136/64 Pulse: 90 Respirations: 18 Pulse Ox (%): 97 - Physical Exam General: Alert, In no apparent distress, Oriented x3 HEENT: EOMI Respiratory: Clear to auscultation bilaterally Cardiovascular: Regular rate/rhythm, Normal S1 S2, Systolic murmur Gastrointestinal: Normal bowel sounds, Soft and benign, Non-distended, No tenderness Musculoskeletal: No clubbing, No swelling, No tenderness Neurological: Sensation intact, Cranial nerves 3-12 intact Other Physical/Emotional Findings: Exam limited as this is a Tele-Medicine visit - Studies Medications List Reviewed: Yes Assessment & Plan - Problems (Diagnosis) (1) Osteomyelitis of right foot Current Visit: Yes Status: Acute (2) Peripheral artery disease Current Visit: Yes Status: Acute (3) DM2 (diabetes mellitus, type 2) Current Visit: Yes Status: Acute Qualifiers: Diabetes mellitus complication status: without complication (4) HTN (hypertension) Current Visit: Yes Status: Acute (5) Hyperlipidemia Current Visit: Yes Status: Acute (6) GERD (gastroesophageal reflux disease) Current Visit: Yes Status: Acute - Plan Plan: 1. Osteomyelitis of the foot; continue with IV antibiotic therapy x6 weeks. 2. PAD; status post arteriogram with angioplasty; continue with anti-platelet therapy and statin therapy 3. Metabolic syndrome; strict blood pressure and blood sugar control and continue with statin therapy 4. Gi DVT prophylaxis Discharge Plan: Home Plan to discharge in: Greater than 2 days - Advance Directives Does patient have a Living Will: Yes Does patient have a Durable POA for Healthcare: Yes - Code Status/Comfort Care Code Status Assessed: Yes Code Status: Full Code Critical Care: No Time Spent Managing PTS Care (In Minutes): 30
--- NOTE | 2024-09-15 02:54 | P.PN ---
Date of Service: 09/13/24 Subjective patient is clinically feeling better. Patient's clinical symptoms are improving. Physical Examination - Vital Signs reviewed - Physical Exam General: Alert, In no apparent distress, Oriented x3 Respiratory: Clear to auscultation bilaterally Cardiovascular: Regular rate/rhythm, Normal S1 S2, Systolic murmur Gastrointestinal: Normal bowel sounds, Soft and benign, Non-distended, No tenderness Musculoskeletal: No clubbing, No swelling, No tenderness Neurological: Sensation intact, Cranial nerves 3-12 intact Assessment & Plan - Problems (Diagnosis) (1) Osteomyelitis of right foot Current Visit: Yes Status: Acute (2) Peripheral artery disease Current Visit: Yes Status: Acute (3) DM2 (diabetes mellitus, type 2) Current Visit: Yes Status: Acute Qualifiers: Diabetes mellitus complication status: without complication (4) HTN (hypertension) Current Visit: Yes Status: Acute (5) Hyperlipidemia Current Visit: Yes Status: Acute (6) GERD (gastroesophageal reflux disease) Current Visit: Yes Status: Acute - Plan Continue with plan of care as mentioned below: 1. Osteomyelitis of the foot; continue with IV antibiotic therapy x6 weeks. 2. PAD; status post arteriogram with angioplasty; continue with anti-platelet therapy and statin therapy 3. Metabolic syndrome; strict blood pressure and blood sugar control and continue with statin therapy 4. Gi DVT prophylaxis Discharge Plan: Home Plan to discharge in: Greater than 2 days - Advance Directives Does patient have a Living Will: Yes Does patient have a Durable POA for Healthcare: Yes - Code Status/Comfort Care Code Status Assessed: Yes Code Status: Full Code Critical Care: No Time Spent Managing PTS Care (In Minutes): 30
--- NOTE | 2024-09-15 02:59 | P.PN ---
Date of Service: 09/14/24 Subjective Patient is clinically doing well. Patient denies any new complaints. Patient clinically doing well. Awaiting for placement as [facility] is stated that she cannot go back there because of their policy against PICC lines. Physical Examination - Vital Signs reviewed - Physical Exam General: Alert, In no apparent distress, Oriented x3 Respiratory: Clear to auscultation bilaterally Cardiovascular: Regular rate/rhythm, Normal S1 S2, Systolic murmur Gastrointestinal: Normal bowel sounds, Soft and benign, Non-distended, No tenderness Musculoskeletal: No clubbing, No swelling, No tenderness Neurological: No focal deficits Assessment & Plan - Problems (Diagnosis) (1) Osteomyelitis of right foot Current Visit: Yes Status: Acute (2) Peripheral artery disease Current Visit: Yes Status: Acute (3) DM2 (diabetes mellitus, type 2) Current Visit: Yes Status: Acute Qualifiers: Diabetes mellitus complication status: without complication (4) HTN (hypertension) Current Visit: Yes Status: Acute (5) Hyperlipidemia Current Visit: Yes Status: Acute (6) GERD (gastroesophageal reflux disease) Current Visit: Yes Status: Acute - Plan Continue with plan of care as mentioned below: 1. Osteomyelitis of the foot; continue with IV antibiotic therapy x6 weeks. arranging for placement at a residential facility placement. 2. PAD; status post arteriogram with angioplasty; continue with anti-platelet therapy and statin therapy 3. Metabolic syndrome; strict blood pressure and blood sugar control and continue with statin therapy 4. Gi DVT prophylaxis Discharge Plan: Home Plan to discharge in: Greater than 2 days - Advance Directives Does patient have a Living Will: Yes Does patient have a Durable POA for Healthcare: Yes - Code Status/Comfort Care Code Status Assessed: Yes Code Status: Full Code Critical Care: No Time Spent Managing PTS Care (In Minutes): 30
[2024-09-15 23:05] VITALS: O2SAT 97
[2024-09-16 11:01] VITALS: BP 98/58
[2024-09-16 12:19] VITALS: TEMP 97.9
== END 2024-09-16 17:54 | DRG 253 ==
LOC: ER 09:53 → ERHOLD 16:57 → 4TH 17:59 → ERHOLD 18:07 → 4TH 18:47
PROVIDERS: ADMIT Internal Medicine; ATTEND Hospitalist
PROC: 047K3D1 Dilation of Right Femoral Artery with Intraluminal Device, using Drug-Coated Balloon, Percutaneous Approach (ICD-10-PCS; principal; 2024-09-09)
PROC: B41F1ZZ Fluoroscopy of Right Lower Extremity Arteries using Low Osmolar Contrast (ICD-10-PCS; 2024-09-09)
PROC: 02HV33Z Insertion of Infusion Device into Superior Vena Cava, Percutaneous Approach (ICD-10-PCS; 2024-09-12)
DX: E11.51 Type 2 diabetes mellitus with diabetic peripheral angiopathy without gangrene (principal); E44.0 Moderate protein-calorie malnutrition; L03.115 Cellulitis of right lower limb; M86.171 Other acute osteomyelitis, right ankle and foot; R64 Cachexia; E11.69 Type 2 diabetes mellitus with other specified complication; I10 Essential (primary) hypertension; E88.810 Metabolic syndrome; E03.9 Hypothyroidism, unspecified; G47.33 Obstructive sleep apnea (adult) (pediatric); K21.9 Gastro-esophageal reflux disease without esophagitis; Z88.5 Allergy status to narcotic agent; Z68.22 Body mass index [BMI] 22.0-22.9, adult; Z79.84 Long term (current) use of oral hypoglycemic drugs; Z79.890 Hormone replacement therapy; Z79.899 Other long term (current) drug therapy
CPT/HCPCS: 36200; 36415; 37224; 71045; 73700; 75630; 76937; 80053; 80061; 80202; 81003; 82947; 83605; 83735; 84100; 84443; 85025; 85347; 85610; 85730; 87040; 93005; 96365; 96366; 96375; 97116; 97161; 97530; 99152; 99153; 99285; C1725; C1760; C1769; C1893; G0269; J0461; J0696; J1650; J2003; J2250; J3010; J3475; J7040; J7050; J7799

== ENCOUNTER 2024-12-02 18:00 | Emergency (ER) | payer OTHER ==
[2024-12-02] MEDS ORDERED: NA CHLORIDE 0.9% 500 ML ONE (18:47)
[2024-12-02 18:50] LABS: Absolute Basophils 0.1 K/uL (0-0.5); Absolute Eosinophils 0.2 K/uL (0-0.5); Absolute Neutrophil 5.5 K/uL (1.8-8.0); Basophils % 0.7 % (0-1.3); Eosinophils % 3.1 % (0-4.4); Hemoglobin 11.3 g/dL (12.0-15.0); MCH 29.9 pg (27.0-35.0); MCHC 34.3 g/dL (32.0-36.0); MCV 87.3 fL (80-100); MPV 7.6 fL (7.6-11.3); Monocytes % 13.1 % (3.3-12.3); Neutrophils % 70.1 % (41.7-73.7); Platelets 303 thou/uL (152-406); RBC Red Blood Cell Count 3.77 M/uL (3.86-4.86); Red Cell Distribution Width 17.4 % (12.1-15.2)
[2024-12-02 18:55] LABS: PT Prothrombin Time 12.1 SECONDS (10-13.0); Protime INR 1.06
[2024-12-02 19:12] LABS: ALT/SGPT 37 U/L (13-56); AST/SGOT 24 U/L (15-37); Albumin 3.1 g/dL (3.4-5.0); Albumin/Globulin Ratio 1.1 (1.1-1.8); Alkaline Phosphatase 61 U/L (45-117); Anion Gap 13.1 mEq/L (5.0-15.0); BUN Blood Urea Nitrogen 25 mg/dL (7-18); Bicarbonate 24 mEq/L (21-32); Bilirubin Total 0.4 mg/dL (0.2-1.0); Globulin 2.9 g/dL (2.3-3.5); Glomerular Filtration Rate 84 ml/min (=/>90); Glucose Level 141 mg/dL (74-106); Lipase 33 U/L (13-75); NT PRO-BNP 1445 pg/mL (<450); Potassium 4.1 mEq/L (3.5-5.1); Sodium Level 129 mEq/L (136-145); Troponin High Sensitivity 12.9 pg/mL (<58.9)
[2024-12-02 19:13] LABS: Bilirubin Direct < 0.2 mg/dL (0-0.2); Bilirubin Indirect, Calculated 0.2 mg/dL (0.2-0.8)
[2024-12-02] MEDS ORDERED: BACI/NEOMYCIN/POLY OINT 15GM TOP ONE (20:06)
--- NOTE | 2024-12-02 20:07 | RAD REPORT ---
EXAMINATION: ONE VIEW CHEST XR CLINICAL INDICATION: Female, 89 years old.,Dyspnea;Pain TECHNIQUE: Frontal chest projection is submitted. Examination is limited by patient positioning and t echnique. COMPARISON: 09/12/2024 FINDINGS: The lungs are diffusely emphysematous but grossly clear. No pneumothorax or sizable effusion. The he art is normal in size. Mediastinal contours are unremarkable. Deformity at the left clavicle, stable IMPRESSION: No acute intrathoracic abnormalities.
--- NOTE | 2024-12-02 20:10 | RAD REPORT ---
EXAM: CT brain without contrast HISTORY: TRAUMA COMPARISON: None TECHNIQUE: Multiple contiguous axial images were obtained and a CT of the brain without contrast. Sag ittal and coronal reformats were performed. FINDINGS: No evidence of hydrocephalus, intracranial hemorrhage, or extra-axial fluid collection. Mild brain atrophy with mild periventricular and deep white matter chronic microvascular ischemic ch anges present. The calvarium is intact. Right parietal scalp swelling and small hematoma. The visualized paranasal s inuses and mastoid air cells are essentially clear. IMPRESSION: No evidence of acute intracranial abnormality. Right parietal scalp swelling and small hematoma. EXAM: CT of the cervical spine without contrast HISTORY: TRAUMA COMPARISON: None TECHNIQUE: Multiple contiguous axial images were obtained in a CT of the cervical spine without contr ast. Sagittal and coronal reformats were performed. FINDINGS: The vertebral bodies demonstrate normal height and alignment. No evidence of acute fracture or subluxation.. Multilevel degenerative changes contributing to mild to moderate degrees of neural foraminal narrowing most pronounced at C3-4 and C6-7 levels bilaterally. No prevertebral soft tissue swelling is seen. The posterior facets are well aligned. Normal alignment of the skull base with the cervical spine is seen. The lung apices are unremarkable. IMPRESSION: No evidence of acute osseous abnormality of the cervical spine. Multilevel degenerative changes as ab ove.
--- NOTE | 2024-12-02 20:15 | RAD REPORT ---
EXAM: CT CHEST, ABDOMEN AND PELVIS WITH CONTRAST CLINICAL INDICATION: Female, 89 years old. FALL TECHNIQUE: CT chest, abdomen, and pelvis was performed, following the administration of contrast, as per department protocol. Axial, sagittal and coronal reconstructions were obtained. One or more of the following dose reduction techniques were used: Automated exposure control, adjustment of the mA a nd/or kV according to patient size, and/or iterative reconstruction. Unless otherwise specified, incidental findings do not require dedicated imaging follow-up. COMPARISON: 05/04/2022 CT. Lumbar spine radiographs 06/13/2022 FINDINGS: Beam hardening artifact limits evaluation LUNGS AND AIRWAYS: No focal consolidation or suspicious nodules. Dependent atelectatic changes. PLEURA: No pleural effusion. No pneumothorax. MEDIASTINUM AND LYMPH NODES: No mediastinal mass or fluid collection. Normal size mediastinal, hilar, and axillary lymph nodes. THORACIC AORTA: Normal caliber and configuration. PULMONARY ARTERIES: Normal caliber. OSSEOUS STRUCTURES AND CHEST WALL: Intact. LIVER: Normal in size and contour. No focal lesion or biliary dilitation. BILIARY SYSTEM: No suspicious abnormalities. PANCREAS: No mass, ductal dilation, or fabian-pancreatic fluid. SPLEEN: Normal size. No focal lesion. ADRENALS: Normal; no mass. KIDNEYS AND URETERS: Normal size and contour. No hydronephrosis. URINARY BLADDER: Normal contour. GASTROINTESTINAL TRACT: Moderate sliding hiatal hernia. No bowel obstruction, free air, significant f ree fluid or abscess. Distal colonic diverticulosis without evidence of acute diverticulitis. APPENDIX: No inflammatory changes in region of appendix. LYMPH NODES: No lymphadenopathy. ABDOMINAL AORTA AND OTHER VESSELS: Normal caliber aorta and IVC. MUSCULOSKELETAL: Chronic appearing wedge compression deformities with vertebral body height loss most pronounced at L1 and L3, and to lesser extent along the inferior endplate of T12. These are stable. Inferior endplate compression deformity at L5 is also stable compared to the more recent lumb ar spine radiographs. IMPRESSION: No acute or significant abnormalities seen in the chest, abdomen or pelvis. Chronic findings as above.
--- NOTE | 2024-12-02 20:19 | EDPHYS ---
Physician Documentation [facility] Name: Melanie Kerr Age: 89 yrs Sex: Female : 1935 Arrival Date: 12/02/2024 Time: 18:00 Bed 9 Private MD: ED Physician Tim Radford HPI: 12/02 19:57 This 89 yrs old Female presents to ER via EMS with complaints of Fall Injury. cristopher 19:57 Details of fall: The patient fell from an upright position, while walking. Onset: The cristopher symptoms/episode began/occurred just prior to arrival. Associated injuries: The patient sustained injury to the head, right arm, abrasion, contusion, laceration. Severity of symptoms: At their worst the symptoms were mild, in the emergency department the symptoms are unchanged. The patient has experienced similar episodes in the past, a few times. Historical: - Allergies: 18:10 Codeine (Vomiting); me1 - PMHx: 18:10 Diabetes - NIDDM; Hypertension; Hypothyroidism; Osteoporosis; Sleep Apnea; T12 fracture;me1 - Immunization history:: Adult Immunizations up to date. - Infectious Disease History:: Denies. - Social history:: Smoking status: Patient denies any tobacco usage or history of. ROS: 20:02 Constitutional: Negative for fever, chills, and weight loss, Eyes: Negative for injury, cristopher pain, redness, and discharge, ENT: Negative for injury, pain, and discharge, Neck: Negative for injury, pain, and swelling, Cardiovascular: Negative for chest pain, palpitations, and edema, Abdomen/GI: Negative for abdominal pain, nausea, vomiting, diarrhea, and constipation, Back: Negative for injury and pain, : Negative for injury, bleeding, discharge, and swelling, Skin: Negative for injury, rash, and discoloration, Psych: Negative for depression, anxiety, suicide ideation, homicidal ideation, and hallucinations, Allergy/Immunology: Negative for hives, rash, and allergies, Endocrine: Negative for neck swelling, polydipsia, polyuria, polyphagia, and marked weight changes, Hematologic/Lymphatic: Negative for swollen nodes, abnormal bleeding, and unusual bruising, 20:02 Respiratory: Positive for cough, 20:02 MS/extremity: Positive for injury or acute deformity, abrasion, laceration, of the right elbow, Exam: 20:02 Constitutional: This is a well developed, well nourished patient who is awake, alert, cristopher and in no acute distress. Head/Face: Normocephalic, atraumatic. Eyes: Pupils equal round and reactive to light, extra-ocular motions intact. Lids and lashes normal. Conjunctiva and sclera are non-icteric and not injected. Cornea within normal limits. Periorbital areas with no swelling, redness, or edema. ENT: Nares patent. No nasal discharge, no septal abnormalities noted. Tympanic membranes are normal and external auditory canals are clear. Oropharynx with no redness, swelling, or masses, exudates, or evidence of obstruction, uvula midline. Mucous membranes moist. Neck: Trachea midline, no thyromegaly or masses palpated, and no cervical lymphadenopathy. Supple, full range of motion without nuchal rigidity, or vertebral point tenderness. No Meningismus. Chest/axilla: Normal chest wall appearance and motion. Nontender with no deformity. No lesions are appreciated. Cardiovascular: Regular rate and rhythm with a normal S1 and S2. No gallops, murmurs, or rubs. Normal PMI, no JVD. No pulse deficits. Respiratory: Lungs have equal breath sounds bilaterally, clear to auscultation and percussion. No rales, rhonchi or wheezes noted. No increased work of breathing, no retractions or nasal flaring. Abdomen/GI: Soft, non-tender, with normal bowel sounds. No distension or tympany. No guarding or rebound. No evidence of tenderness throughout. Back: No spinal tenderness. No costovertebral tenderness. Full range of motion. Female : Normal external genitalia. Skin: Warm, dry with normal turgor. Normal color with no rashes, no lesions, and no evidence of cellulitis. Neuro: Awake and alert, GCS 15, oriented to person, place, time, and situation. Cranial nerves II-XII grossly intact. Motor strength 5/5 in all extremities. Sensory grossly intact. Cerebellar exam normal. Normal gait. Psych: Awake, alert, with orientation to person, place and time. Behavior, mood, and affect are within normal limits. 20:02 ECG was reviewed by the Attending Physician. 20:02 Musculoskeletal/extremity: ROM: full active range of motion, full passive range of motion, Circulation is intact in all extremities. Sensation intact. Compartment Syndrome exam of affected extremity: is normal. DVT Exam: no pain, no swelling, no tenderness, negative Homans' sign noted on exam, no appreciated bluish discoloration, no erythema, no increased warmth, Vital Signs: 18:03 BP 159 / 81; Pulse 71; Resp 17; Temp 98.4; Pulse Ox 97% ; Weight 49.9 kg; Height 5 ft. me1 1 in. ; Pain 3/10; 19:00 BP 152 / 78; Pulse 68; Resp 17; Pulse Ox 98% ; me1 20:00 BP 148 / 71; Pulse 69; Resp 16; Temp 98.4; Pulse Ox 97% ; me1 18:03 Body Mass Index 20.78 (49.90 kg, 154.94 cm) me1 18:03 Pain Scale: Adult me1 [place] Coma Score: 20:14 Eye Response: spontaneous(4). Motor Response: obeys commands(6). Verbal Response: cristopher oriented(5). Total: 15. MDM: 18:10 Medical Screening Exam initiated cristopher 20:14 Differential diagnosis: Contusion of Hematoma on Laceration of Intracranial bleed- cristopher Concussion without LOC. cerebral contusion, dislocation, closed fracture, contusion, abrasion. Differential diagnosis: abrasion, closed head injury, contusion, fracture, laceration, multiple trauma, sprain, strain. Data reviewed: vital signs, nurses notes, lab test result(s), EKG, radiologic studies, CT scan, plain films. Consideration of Admission/Observation Escalation of care including admission/observation considered. I considered the following discharge prescriptions or medication management in the emergency department Medications were administered in the Emergency Department. See MAR. Independent interpretation of the following test(s) in the Emergency Department EKG: See my EKG interpretation above. Test considered but Not performed: Ultrasound no fast. Historians other than the Patient: EMS: ems well informed. pt well informed. 12/02 18:11 Order name: Basic Metabolic Panel; Complete Time: 19:51 [facility] 12/02 18:11 Order name: CBC with Diff; Complete Time: 19:51 [facility] 12/02 18:11 Order name: LFT's; Complete Time: 19:51 [facility] 12/02 18:11 Order name: Magnesium; Complete Time: 19:51 [facility] 12/02 18:11 Order name: NT PRO-BNP; Complete Time: 19:51 [facility] 12/02 18:11 Order name: PT-INR; Complete Time: 19:51 [facility] 12/02 18:11 Order name: Troponin HS; Complete Time: 19:51 [facility] 12/02 18:11 Order name: Lipase; Complete Time: 19:51 [facility] 12/02 18:11 Order name: XRAY Chest (1 view); Complete Time: 20:16 [facility] 12/02 19:14 Order name: Chest Abdomen Pelvis W Cont; Complete Time: 20:16 [facility] 12/02 19:15 Order name: Head C Spine Mpr Wo Con; Complete Time: 20:16 [facility] 12/02 18:11 Order name: Cardiac monitoring; Complete Time: 19:21 [facility] 12/02 18:11 Order name: EKG - Nurse/Tech; Complete Time: 19:21 [facility] 12/02 18:11 Order name: IV Saline Lock; Complete Time: 18:33 [facility] 12/02 18:11 Order name: Labs collected and sent; Complete Time: 18:33 [facility] 12/02 18:11 Order name: O2 Per Protocol; Complete Time: 18:33 [facility] 12/02 18:11 Order name: O2 Sat Monitoring; Complete Time: 18:33 [facility] 12/02 19:57 Order name: Wound Care: right elbow; Complete Time: 20:22 [facility] 12/02 20:16 Order name: PO challenge; Complete Time: 20:22 [facility] EC:02 Rate is 85 beats/min. Rhythm is regular. QRS [place] is Normal. MD interval is normal. QRS cristopher interval is normal. QT interval is normal. No Q waves. T waves are Normal. No ST changes noted. Clinical impression: NSR w/ Non-specific ST/T Changes and No evidence of ischemia. Interpreted by me. Reviewed by me. Administered Medications: 18:50 Drug: NS 0.9% IV 500 ml 500 ml IV at 1 bolus once; to be given as a bolus over 30 me1 minutes Volume: 500 ml; Route: IV; Rate: 1 bolus; Site: left antecubital; 20:23 Follow up: Response: No adverse reaction; IV Status: Completed infusion; IV Intake: me1 500ml 20:21 Drug: Hmlivanw-Jrbrbjbacg-Vzdtuptve Topical Ointment 1 application Topical once Route: me1 Topical; Site: right forearm; Disposition Summary: 12/02/24 20:19 Discharge Ordered Notes: Location: Home cristopher Problem: new cristopher Symptoms: have improved cristopher Condition: Fair cristopher Diagnosis - Fall on same level, unspecified cristopher - Unspecified injury of head, initial encounter cristopher - Laceration without foreign body of right forearm - skin tear cristopher - Hypo-osmolality and hyponatremia cristopher Followup: cristopher - With: Private Physician - When: 2 - 3 days - Reason: Recheck today's complaints, Continuance of care, Re-evaluation by your physician Discharge Instructions: - Discharge Summary Sheet cristopher - Abrasion cristopher - Head Injury, Adult cristopher - Fall Prevention in the Home, Adult cristopher - Hyponatremia cristopher - Abrasion, Yygj-is-Raoe cristopher - Fall Prevention in the Home, Adult, Vvei-cf-Tgfs cristopher - Hyponatremia, Hech-lu-Ogmk cristopher - Head Injury, Adult, Fscv-du-Huxc cristopher Forms: - Medication Reconciliation Form cristopher - Antibiotic Education cristopher - Prescription Opioid Use cristopher - Patient Portal Instructions cristopher - Leadership Thank You Letter cristopher Signatures: Dispatcher [employer] EDTim Escudero MD MD cha Eddleman, Michelle, RN RN me1 Corrections: (The following items were deleted from the chart) 18:11 18:10 PSHx: None; me1 me1 18:12 18:11 BASIC METABOLIC PANEL+C.LAB.BRZ ordered. EDMS EDMS 18:12 18:11 CBC+H.LAB.BRZ ordered. EDMS EDMS 18:12 18:11 HEPATIC FUNCTION+C.LAB.BRZ ordered. EDMS EDMS 18:12 18:11 MAGNESIUM+C.LAB.BRZ ordered. EDMS EDMS 18:12 18:11 PROBNP+C.LAB.BRZ ordered. EDMS EDMS 18:12 18:11 PROTIME (+INR)+COAG.LAB.BRZ ordered. EDMS EDMS 18:12 18:11 Troponin High Sensitivity+C.LAB.BRZ ordered. EDMS EDMS 18:12 18:11 LIPASE+C.LAB.BRZ ordered. EDMS EDMS 18:12 18:11 Urinalysis+U.LAB.BRZ ordered. EDMS EDMS 18:12 18:12 Head C Spine CAP W Con+CT.RAD.BRZ ordered. EDMS EDMS
--- NOTE | 2024-12-02 20:19 | ER ---
Nurse's Notes [facility] [place], [place] Name: Melanie Kerr Age: 89 yrs Sex: Female : 1935 Arrival Date: 12/02/2024 Time: 18:00 Bed 9 Private MD: Diagnosis: Fall on same level, unspecified;Unspecified injury of head, initial encounter;Laceration without foreign body of right forearm-skin tear;Hypo-osmolality and hyponatremia Presentation: 12/02 18:03 Chief complaint: EMS states: toned out to [facility] for fall. Patient stood up from ks1 her chair, lost her balance and fell forward hitting the right side of her head on the side table and left chest on the wheelchair. No LOC. + blood thinners. Hematoma noted to right scalp and c/o pain to left ribs. 22g LAC, given Ofirmev 1 gm IV. Coronavirus screen: Vaccine status: Patient reports receiving the 2nd dose of the covid vaccine. Ebola Screen: No symptoms or risks identified at this time. Initial Sepsis Screen: Does the patient meet any 2 criteria? No. Patient's initial sepsis screen is negative. Does the patient have a suspected source of infection? No. Patient's initial sepsis screen is negative. Risk Assessment: Do you want to hurt yourself or someone else? Patient reports no desire to harm self or others. Onset of symptoms was December 02, 2024 at 17:50. 18:03 Method Of Arrival: EMS: [place] [id number] 18:03 Acuity: SHABBIR 3 ks1 Triage Assessment: 18:10 General: Appears in no apparent distress. well groomed, well developed, well nourished, ks1 Behavior is calm, cooperative, appropriate for age, Reports s/p fall, hit her head, no loc. c/o left rib pain. Pain: Complains of pain in face and left lateral anterior chest Pain does not radiate. Pain currently is 3 out of 10 on a pain scale. Quality of pain is described as aching, Pain began suddenly, Is continuous. EENT: No signs and/or symptoms were reported regarding the EENT system. Neuro: Level of Consciousness is awake, alert, obeys commands, Oriented to person, place, time, situation, Appropriate for age. Cardiovascular: Patient's skin is warm and dry. Respiratory: Airway is patent Trachea midline Respiratory effort is even, unlabored, Respiratory pattern is regular, symmetrical. GI: No signs and/or symptoms were reported involving the gastrointestinal system. : No signs and/or symptoms were reported regarding the genitourinary system. Derm: Skin is fragile, is thin, Skin is pink, warm \T\ dry. hematoma to right scalp. c/o pain to left ribs. Musculoskeletal: Reports pain in left lateral anterior chest. Historical: - Allergies: 18:10 Codeine (Vomiting); me1 - PMHx: 18:10 Diabetes - NIDDM; Hypertension; Hypothyroidism; Osteoporosis; Sleep Apnea; T12 fracture;me1 - Immunization history:: Adult Immunizations up to date. - Infectious Disease History:: Denies. - Social history:: Smoking status: Patient denies any tobacco usage or history of. Screenin:14 [facility] ED Fall Risk Assessment (Adult) History of falling in the last 3 months, me1 including since admission Yes- single mechanical fall (1 pt) Confusion or Disorientation No (0 pts) Intoxicated or Sedated No (0 pts) Impaired Gait Yes (1 pt) Mobility Assist Device Used No (0 pt) Altered Elimination No (0 pt) Score/Fall Risk Level 0 - 2 = Low Risk Maintained a safe environment, Provided non-skid footwear, Hourly rounding (assess needs \T\ fall precautionary measures) done. Abuse screen: Denies threats or abuse. Nutritional screening: No deficits noted. Tuberculosis screening: No symptoms or risk factors identified. Assessment: 18:14 General: See triage assessment. me1 Vital Signs: 18:03 BP 159 / 81; Pulse 71; Resp 17; Temp 98.4; Pulse Ox 97% ; Weight 49.9 kg; Height 5 ft. me1 1 in. ; Pain 3/10; 19:00 BP 152 / 78; Pulse 68; Resp 17; Pulse Ox 98% ; me1 20:00 BP 148 / 71; Pulse 69; Resp 16; Temp 98.4; Pulse Ox 97% ; me1 18:03 Body Mass Index 20.78 (49.90 kg, 154.94 cm) me1 18:03 Pain Scale: Adult me1 [place] Coma Score: 20:14 Eye Response: spontaneous(4). Motor Response: obeys commands(6). Verbal Response: cristopher oriented(5). Total: 15. ED Course: 18:03 Patient arrived in ED. me1 18:10 Tim Radford MD is Attending Physician. cristopher 18:10 Triage completed. me1 18:10 Arm band placed on Patient placed in an exam room. me1 18:14 Patient has correct armband on for positive identification. Bed in low position. Call me1 light in reach. Side rails up X2. Provided Education on: POC. Verbalized understanding.. Client placed on continuous cardiac and pulse oximetry monitoring. NIBP monitoring applied. Pulse ox on. NIBP on. 18:14 No provider procedures requiring assistance completed. me1 18:15 Alexsandra Boudreaux, CARLO is Primary Nurse. me1 18:45 Maintain EMS IV. Dressing intact. Good blood return noted. Site clean \T\ dry. Gauge \T\ me 1 site: 22g LAC. Flushed with 10 mL NS. 18:50 XRAY Chest (1 view) In Process Unspecified. EDMS 19:21 Initial lab(s) drawn, by me, sent to lab. EKG done, by ED staff, reviewed by Tim [email or web address] Prabhakar SOLIZ. 19:32 Chest Abdomen Pelvis W Cont In Process Unspecified. EDMS 19:32 Head C Spine Mpr Wo Con In Process Unspecified. EDMS 20:37 IV discontinued, intact, bleeding controlled, No redness/swelling at site. Pressure me1 dressing applied. Administered Medications: 18:50 Drug: NS 0.9% IV 500 ml 500 ml IV at 1 bolus once; to be given as a bolus over 30 me1 minutes Volume: 500 ml; Route: IV; Rate: 1 bolus; Site: left antecubital; 20:23 Follow up: Response: No adverse reaction; IV Status: Completed infusion; IV Intake: me1 500ml 20:21 Drug: Vrbgvrbu-Xkpbolhiue-Kavifcids Topical Ointment 1 application Topical once Route: me1 Topical; Site: right forearm; Medication: 18:14 VIS not applicable for this client. me1 Intake: 20:23 IV: 500ml; Total: 500ml. me1 Outcome: 20:19 Discharge ordered by . [facility] 20:37 Discharged to home via wheelchair, with family, me1 20:37 Condition: stable 20:37 Discharge instructions given to patient, Instructed on discharge instructions, follow up and referral plans. wound care, Demonstrated understanding of instructions, follow-up care, wound care, 20:38 Patient left the ED. me1 Signatures: Dispatcher [employer] Tim Sanabria MD MD cha Eddleman, Michelle, CARLO RN me1 Corrections: (The following items were deleted from the chart) 18:11 18:10 PSHx: None; me1 me1
[2024-12-02 21:30] VITALS: TEMP 98.4
[2024-12-02 21:34] VITALS: BP 148/71; O2SAT 97
--- NOTE | 2024-12-05 12:14 | EKG ---
Test Date: 2024-12-02 Test Time: 19:19:20 [employer]: MEASUREMENT RESULTS: Intervals: Rate: 85 TX: 170 QRSD: 100 QT: 380 QTc: 452 [place]: P: 51 TX: 170 QRS: -64 T: 122 INTERPRETIVE STATEMENTS: Normal sinus rhythm Left axis deviation Anterior infarct, age undetermined Abnormal ECG Compared to ECG 09/07/2024 10:42:45 No significant changes Electronically Signed On 12-05-24 12:09:10 CDT by Derik Harrison
== END 2024-12-02 20:38 | disposition home or self-care (01) ==
LOC: ER 18:00
DX: S09.90XA Unspecified injury of head, initial encounter (principal); S51.811A Laceration without foreign body of right forearm, initial encounter; W18.30XA Fall on same level, unspecified, initial encounter; E87.1 Hypo-osmolality and hyponatremia
CPT/HCPCS: 96361; 85025; 80048; 36415; 83735; 85610; 80076; 84484; 83690; 83880; 70450; 72125; 71260; 74177; 71045; 96360; 99284; Q9967; J7040; 93005

== ENCOUNTER 2025-04-04 01:17 | Emergency (ER) | payer OTHER ==
[2025-04-04] MEDS ORDERED: LIDOCAINE 1% 20 ML MDV ONE (01:55)
[2025-04-04 03:05] LABS: Absolute Lymphocytes (CBC) 1.1 K/uL (0.7-4.9); Hematocrit 34.4 % (36.0-45.0); Hemoglobin 11.5 g/dL (12.0-15.0); MCH 29.1 pg (27.0-35.0); MCHC 33.5 g/dL (32.0-36.0); MCV 86.7 fL (80-100); MPV 7.6 fL (7.6-11.3); Nucleated RBC Absolute Count 0.0 (0-0); Nucleated Red Blood Cells % 0.1 % (0-0); RBC Red Blood Cell Count 3.97 M/uL (3.86-4.86); White Blood Count 7.30 thou/uL (4.3-10.9)
[2025-04-04 03:30] LABS: ALT/SGPT 21.0 U/L (13-56); Albumin 3.3 g/dL (3.4-5.0); Albumin/Globulin Ratio 1.1 (1.1-1.8); Alkaline Phosphatase 54.0 U/L (45-117); Anion Gap 12.5 mEq/L (5.0-15.0); BUN Blood Urea Nitrogen 13.0 mg/dL (7-18); Globulin 3.1 g/dL (2.3-3.5); Glucose Level 149.0 mg/dL (74-106); Troponin High Sensitivity 11.7 pg/mL (<58.9)
[2025-04-04 03:33] LABS: AST/SGOT 19.0 U/L (15-37); Potassium 3.5 mEq/L (3.5-5.1)
[2025-04-04] MEDS ORDERED: NA CHLORIDE 0.9% 100 ML ONE (04:05)
[2025-04-04] MEDS ORDERED: CEFAZOLIN SODIUM 1 GM/VIAL ONE (04:05)
--- NOTE | 2025-04-04 05:22 | RAD REPORT ---
PROCEDURE: CT Head and Cervical Spine Without Intravenous Contrast CLINICAL INDICATION: The patient is 89 years old and is Female; Trauma. TECHNIQUE: Axial computed tomography images of the head/brain and cervical spine without intravenous contrast. Sagittal and coronal reformatted images were created and reviewed. This CT exam was performed using one or more of the following dose reduction techniques: automated exposure control, adjustmen t of the mA and/or kV according to patient size, and/or use of iterative reconstruction technique. COMPARISON: CT Head and Cervical spine 12/02/2024. FINDINGS: BRAIN: Bilateral basal ganglia calcifications, nonspecific but most commonly suggestive of poorly c ontrolled hypertension. Mild global cerebral atrophy with commensurate sulcal and ventricular enlargement, not greate r than expected for patient age. Mild bilateral periventricular and deep white matter microangiopathy changes. No extra-axial fluid collection. No abnormal mass effect. No appreciable cerebral edema. No intracranial hemorrhage. No focal carson-white matter differentiation abnormality. MIDLINE SHIFT: No midline shift. VENTRICLES: See above. SKULL: Right TMJ degenerative changes. 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 SINUSES: See above. MASTOID AIR CELLS: Unremarkable as visualized. No mastoid effusion. VERTEBRAE: Multilevel cervical and thoracic spondylosis with posterior and anterior longitudinal li gament ossification, predominantly involving the visualized thoracic spine. No acute fracture or acute vertebral body height loss. No significant subluxation. DISCS/SPINAL CANAL/NEURAL FORAMINA: Multilevel cervical and thoracic spinal canal narrowing, greate st at the C3-4 level, secondary to disc osteophyte complexes. No transtentorial herniation. No high-grade bony spinal canal stenosis. OTHER BONES/JOINTS: Remote fracture of the left clavicular head redemonstrated. No fracture of the calvarium or visualized facial bones. SOFT TISSUES: Unremarkable No abnormal prevertebral soft tissue swelling. VASCULATURE: Moderate calcification of the visualized thoracic aorta. OTHER FINDINGS: Dens is intact. No dislocation. Atlantooccipital orientation is normal. IMPRESSION: 1. No acute intracranial or cervical spine abnormality. 2. Chronic and senescent changes, not greater than expected for patient age. 3. Multilevel cervical and thoracic spondylosis with posterior and anterior longitudinal ligament o ssification, predominantly involving the visualized thoracic spine. Electronically signed by: Humberto Chen MD 04/04/2025 05:05 AM CDT Due to temporary technical issues with the PACS/[employer] reporting system, reports are being salvador d by the in-house radiologist without review as a courtesy to ensure prompt reporting the interpreting radiologist is fully responsible for the content of the report. Transcribed Date/Time: 04/04/2025 5:22 AM
--- NOTE | 2025-04-04 05:23 | RAD REPORT ---
PROCEDURE: CT Chest, Abdomen and Pelvis Without Intravenous Contrast CLINICAL INDICATION: The patient is 89 years old and is Female; Trauma. TECHNIQUE: Axial computed tomography images of the chest, abdomen and pelvis without intravenous contrast. Sag ittal and coronal reformatted images were created and reviewed. This CT exam was performed using one or more of the following dose reduction techniques: automated exposure control, adjustment of t he mA and/or kV according to patient size, and/or use of iterative reconstruction technique. COMPARISON: CT Chest abdomen pelvis 12/02/2024. FINDINGS: CHEST: LUNGS AND PLEURAL SPACES: Tree-in-bud nodularities demonstrated within the lateral anterior segment of the left upper lobe, near the lingula, appearing new from reference exam. No additional suspicious pulmonary masses or nodules. Bibasilar subsegmental atelectasis with no additional focal consolidation. No significant effusion. No pneumothorax. HEART: No significant pericardial effusion. No cardiomegaly. MEDIASTINUM: Small to moderate hiatal hernia. ABDOMEN: LIVER: Unremarkable GALLBLADDER AND BILE DUCTS: Unremarkable No calcified stones. No ductal dilation. PANCREAS: Diffusely atrophic appearance of the pancreas with no ductal dilatation or solid or cysti c mass appreciated. SPLEEN: Unremarkable No splenomegaly. ADRENALS: Unremarkable No mass. KIDNEYS AND URETERS: Prominence of the bilateral pelvises, increased from prior exam, without overt hydronephrosis or ureteral ectasia. STOMACH AND BOWEL: Fecalization contents of multiple loops of small bowel. Nonspecific, but suggest s decreased motility. Colonic diverticulosis without evidence of acute diverticulitis. No evidence of small or large bowel obstruction. No perienteric or pericolonic fat stranding or abnormal mucosal thickening. PELVIS: APPENDIX: No findings to suggest acute appendicitis. BLADDER: Mild distention of the urinary bladder with no wall thickening or perivesicular fat strand ing. No stones. REPRODUCTIVE: Unremarkable as visualized. CHEST, ABDOMEN and PELVIS: INTRAPERITONEAL SPACE: Unremarkable No significant fluid collection. No free air. BONES/JOINTS: Redemonstrated vertebroplasty changes involving the L1 and L5 vertebral bodies with u nchanged appearance of moderate to severe L3 vertebral body compression fracture. Remote sternal fracture redemonstrated. Remote left clavicular head fracture redemonstrated. Redemonstrated diffuse ossification of the thoracic anterior and posterior longitudinal ligam ents. 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 Degenerative changes of the bilateral wrists and hands. Degenerative changes of the bilateral hips. Bilateral peripelvic enthesophytes redemonstrated. Interval development of multilevel anterior and lateral left-sided rib fractures, with associ ated callus formation, suggesting subacute or early chronic chronicity. No definite acute displaced or depressed rib, sternal, or vertebral fractures. SOFT TISSUES: Unremarkable VASCULATURE: Moderate thoracic and severe abdominal aortic calcified atherosclerosis without aneury smal dilatation. Severe multivessel coronary artery calcifications. LYMPH NODES: Unremarkable No enlarged lymph nodes. IMPRESSION: 1. Interval development of multilevel anterior and lateral left-sided rib fractures, with associate d callus formation, suggesting subacute or early chronic chronicity. No definite acute displaced or depressed rib, sternal, or vertebral fractures. Remote sternal, left clavicular, and vertebral body f ractures as above. 2. Tree-in-bud nodularities demonstrated within the lateral anterior segment of the left upper lobe , near the lingula, appearing new from reference exam. Findings suggest infectious or inflammatory bronchiolitis. 3. Otherwise, allowing for lack of intravenous contrast, no acute abnormality of the chest, abdomen , or pelvis. 4. Fecalization contents of multiple loops of small bowel. Nonspecific, but suggests decreased alise lity. 5. Additional nonacute findings as above. Electronically signed by: Humberto Chen MD 04/04/2025 05:15 AM CDT Due to temporary technical issues with the PACS/[employer] reporting system, reports are being salvador d by the in-house radiologist without review as a courtesy to ensure prompt reporting the interpreting radiologist is fully responsible for the content of the report. Transcribed Date/Time: 04/04/2025 5:23 AM
--- NOTE | 2025-04-04 05:40 | RAD REPORT ---
CLINICAL HISTORY: PAIN COMPARISON: None. TECHNIQUE: XR HIP 2 OR MORE VIEWS RIGHT 04/04/2025 2:00 AM CDT FINDINGS: There is no fracture. There is moderate to severe narrowing of the right hip joint. Right groin vascu lar calcifications are present. IMPRESSION: No acute osseous findings. Electronically signed by: Adrián Kimble MD 04/04/2025 04:55 AM CDT RP Due to temporary technical issues with the PACS/[employer] reporting system, reports are being salvador d by the in-house radiologist without review as a courtesy to ensure prompt reporting the interpreting radiologist is fully responsible for the content of the report. Transcribed Date/Time: 04/04/2025 5:40 AM
--- NOTE | 2025-04-04 05:40 | RAD REPORT ---
EXAM: XR Left Forearm, 2 Views CLINICAL HISTORY: Pain, trauma TECHNIQUE: Frontal and lateral views of the left forearm. COMPARISON: No relevant prior studies available. FINDINGS: Bones/joints: Osseous structures are osteopenic. No acute fracture. Multifocal changes most pronoun milly, moderate at the first carpometacarpal articulation. No dislocation. Soft tissues: Unremarkable. Vasculature: Atherosclerotic disease. IMPRESSION: No acute injury. Electronically signed by: Lit Almonte MD 04/04/2025 03:49 AM CDT Due to temporary technical issues with the PACS/[employer] reporting system, reports are being salvador d by the in-house radiologist without review as a courtesy to ensure prompt reporting the interpreting radiologist is fully responsible for the content of the report. Transcribed Date/Time: 04/04/2025 5:39 AM
--- NOTE | 2025-04-04 05:50 | ER ---
Nurse's Notes [facility] Name: Melanie Kerr Age: 89 yrs Sex: Female : 1935 Arrival Date: 04/04/2025 Time: 01:17 Bed 15 Private MD: Diagnosis: Fall on same level, unspecified;Laceration without foreign body of left forearm-complex large skin tears;Contusion of left hip;Acute upper respiratory infection, unspecified Presentation: 04/04 01:17 Chief complaint: EMS states: from [facility] for a mechanical al5 fall. patient was getting up out of the bed and was trying to use her wheelchair, but wheelchair turned and she fell. denies headstrike, but is taking eliquis. Care prior to arrival: Bleeding of injury controlled. Injury dressed. Mechanism of Injury: Fall from standing position. Trauma event details: Injury occurred in the [facility], Injury occurred: at home. Injury occurred: April 04, 2025. 01:17 Acuity: SHABBIR 3 al5 01:17 Method Of Arrival: EMS: [facility] al5 01:17 Coronavirus screen: At this time, the client does not indicate any symptoms associated al5 with coronavirus-19. Ebola Screen: No symptoms or risks identified at this time. Initial Sepsis Screen: Does the patient meet any 2 criteria? No. Patient's initial sepsis screen is negative. Does the patient have a suspected source of infection? No. Patient's initial sepsis screen is negative. Risk Assessment: Do you want to hurt yourself or someone else? Patient reports no desire to harm self or others. Onset of symptoms was April 04, 2025. Triage Assessment: 01:17 General: see trauma assessment. al5 Trauma Activation: Physician: ED Physician; Name: ; Notified At: ; Arrived At: Physician: General Surgeon; Name: ; Notified At: ; Arrived At: Physician: Radiology; Name: ; Notified At: ; Arrived At: Physician: Respiratory; Name: ; Notified At: ; Arrived At: Physician: Lab; Name: ; Notified At: ; Arrived At: 01:17 n/a al5 Historical: - Allergies: 01:17 Codeine (Vomiting); al5 - PMHx: 01:17 Hypertension; Hypothyroidism; Diabetes - NIDDM; Osteoporosis; Sleep Apnea; T12 al5 fracture; TIA; - PSHx: 01:17 None; al5 - Immunization history: Last tetanus immunization: - up to date. - Infectious Disease History:: Denies. - Social history:: Smoking status: Patient denies any tobacco usage or history of. - Family history:: not pertinent. Screenin:17 Abuse screen: Denies threats or abuse. Denies injuries from another. Nutritional al5 screening: No deficits noted. Tuberculosis screening: No symptoms or risk factors identified. 01:26 [facility] ED Fall Risk Assessment (Adult) History of falling in the last 3 months, al5 including since admission Yes- single mechanical fall (1 pt) Confusion or Disorientation No (0 pts) Intoxicated or Sedated No (0 pts) Impaired Gait Yes (1 pt) Mobility Assist Device Used Yes (1 pt) Altered Elimination No (0 pt) Score/Fall Risk Level 3 or more points = High Risk Oriented to surroundings, Maintained a safe environment, Hourly rounding (assess needs \T\ fall precautionary measures) done. Primary Survey: : NO uncontrolled hemorrhage observed. A: The client is alert. Airway: patent, No al5 supplemental oxygen in use on arrival. Breathing/Chest: Respiratory effort: spontaneous, unlabored, Respiratory pattern: regular. Circulation: Skin color: pink, Skin temperature: warm, dry. Disability Pupils are equal, round, reactive to light and accommodation. Client is alert. Exposure/Environment: There is no evidence of uncontrolled external bleeding. Obvious injury(ies) are noted at this time: skin tear to R forearm. Secondary Survey: : HEENT: No deficits noted. Gastrointestinal: No deficits noted. : No deficits noted. al5 Musculoskeletal: Circulation, motion, and sensation intact. Range of motion: intact in all extremities. Assessment: 01:17 General: Appears in no apparent distress. comfortable, Behavior is calm, cooperative. al5 Pain: Denies pain. Neuro: Level of Consciousness is awake, alert, obeys commands, Oriented to person, place, time, situation, Speech is normal, Facial symmetry appears normal, Intact. EENT: No signs and/or symptoms were reported regarding the EENT system. Cardiovascular: Capillary refill < 3 seconds Patient's skin is warm and dry. Respiratory: Airway is patent Respiratory effort is even, unlabored, Respiratory pattern is regular, symmetrical. GI: No signs and/or symptoms were reported involving the gastrointestinal system. : No signs and/or symptoms were reported regarding the genitourinary system. Derm: skin tear to the R forearm. Musculoskeletal: Circulation, motion, and sensation intact. Range of motion: intact in all extremities. 02:32 Reassessment: Patient appears in no apparent distress at this time. Patient is alert, kt5 oriented x 3, equal unlabored respirations, skin warm/dry/pink. Patient denies pain at this time. Patient states feeling better. Patient states symptoms have improved. 03:42 Reassessment: Patient appears in no apparent distress at this time. Patient is alert, kt5 oriented x 3, equal unlabored respirations, skin warm/dry/pink. Patient denies pain at this time. Patient states feeling better. Patient states symptoms have improved. purwick placed pt tolerated well. 04:41 Reassessment: Patient appears in no apparent distress at this time. Patient is alert, kt5 oriented x 3, equal unlabored respirations, skin warm/dry/pink. Patient denies pain at this time. Patient states feeling better. Patient states symptoms have improved. 05:30 Reassessment: Patient appears in no apparent distress at this time. Patient is alert, kt5 oriented x 3, equal unlabored respirations, skin warm/dry/pink. Patient denies pain at this time. Patient states feeling better. Patient states symptoms have improved. 06:45 Reassessment: Patient appears in no apparent distress at this time. No changes from kt5 previously documented assessment. Patient is alert, oriented x 3, equal unlabored respirations, skin warm/dry/pink. Patient denies pain at this time. Patient states feeling better. Patient states symptoms have improved. Vital Signs: 01:17 BP 163 / 91; Pulse 90; Resp 16; Temp 97.8; Pulse Ox 100% on R/A; Weight 50.35 kg; al5 Height 5 ft. 1 in. ; 02:23 BP 176 / 85; Pulse 88; Resp 18 S; Pulse Ox 99% on R/A; kt5 03:42 BP 162 / 80; Pulse 88; Resp 18 S; Pulse Ox 99% ; kt5 04:41 BP 156 / 84; Pulse 88; Resp 18; Pulse Ox 96% ; kt5 05:29 BP 174 / 69; Pulse 74; Resp 18; Pulse Ox 96% ; kt5 06:45 BP 162 / 62; Pulse 88; Resp 18; Pulse Ox 98% ; kt5 01:17 Body Mass Index 20.97 (50.35 kg, 154.94 cm) al5 Mary Coma Score: 01:17 Eye Response: spontaneous(4). Motor Response: obeys commands(6). Verbal Response: al5 oriented(5). Total: 15. Trauma Score (Adult): 01:17 Eye Response: spontaneous(1); Verbal Response: oriented(1); Motor Response: obeys al5 commands(2); Systolic BP: > 89 mm Hg(4); Respiratory Rate: 10 to 29 per min(4); Mary Score: 15; Trauma Score: 12 NIH Stroke Scale Scores: 03:02 NIHSS Score: 0 cristopher ED Course: 01:17 Patient has correct armband on for positive identification. Bed in low position. Call al5 light in reach. Side rails up X2. 01:17 Arm band placed on right wrist. Patient placed in the treatment room, in view of staff al5 members, on pulse oximetry. 01:17 Client placed on continuous cardiac and pulse oximetry monitoring. NIBP monitoring kt5 applied. hall monitor on. Door closed. Noise minimized. Warm blanket given. Pillow given. Family accompanied patient. 01:17 Patient maintains SpO2 saturation greater than 95% on room air. al5 01:18 Patient arrived in ED. gm2 01:20 Tim Radford MD is Attending Physician. cristopher 01:26 Provided Education on: plan of care. al5 01:26 Thermoregulation: warm blanket given to patient. al5 01:37 Martine To, RN is Primary Nurse. kt5 01:51 Triage completed. al5 02:26 Inserted saline lock: 20 gauge in right wrist, using aseptic technique. Blood kt5 collected. Flushed with 10 mL NS. 02:29 Troponin High Sensitivity Sent. kt5 02:29 CMP Sent. kt5 02:29 CBC with Diff Sent. kt5 02:50 EKG done, by ED staff, reviewed by Tim Radford MD. oe 03:00 Forearm Left XRAY In Process Unspecified. EDMS 03:00 Hip Right 2 View XRAY In Process Unspecified. EDMS 03:11 Head C Spine Mpr Wo Con In Process Unspecified. EDMS 03:11 Chest Abd Pelvis Wo Con In Process Unspecified. EDMS 05:49 Stephan Schwartz MD is Referral Physician. cristopher 06:45 IV discontinued, intact, bleeding controlled, No redness/swelling at site. Pressure kt5 dressing applied. Administered Medications: 01:56 Drug: Lidocaine-Epinephrine Infiltration -1%: (1:100,000) 10 ml 20 ml Infiltration al5 once; to bedside {Note: given by provider.} Volume: 20 ml; Route: Infiltration; 06:47 Follow up: Response: No adverse reaction kt5 01:56 Not Given (patient up to date on tetanus shott): boostrix tdap0.5 ml IM once; as a al5 single dose 04:29 Drug: ceFAZolin IVPB 1 grams IVPB once Route: IVPB; Site: right forearm; kt5 05:03 Follow up: Response: No adverse reaction kt5 06:45 Follow up: Response: No adverse reaction kt5 06:44 Drug: AZITHromycin PO 500 mg PO once Route: PO; kt5 06:45 Follow up: Response: No adverse reaction kt5 Medication: 02:03 VIS not applicable for this client. al5 Intake: 01:17 n/a al5 Outcome: 05:49 Discharge ordered by . cristopher 06:49 Patient left the ED. kt5 NIH Stroke Scale - NIH Stroke Score Date: 04/04/2025 Time: 03:02 Total Score = 0 10. Dysarthria (speech clarity - read or repeat words) - 0(Normal) 11. Extinction and Inattention (visual/tactile/auditory/spatial/personal) - 0(No abnormality) 1a. Level of Consciousness (LOC) - 0(Alert) 1b. Level of Consciousness (LOC) (Month \T\ Age) - 0(Both) 1c. LOC Commands (Open \T\ Closes Eyes/Windows Technical Specialist) - 0(Both) 2. Best Gaze (Lateral Gaze Paresis) - 0(Normal) 3. Visual Field Loss - 0(No visual loss) 4. Facial Palsy - 0(Normal) 5a. Left Arm: Motor (10-second hold) - 0(No drift) 5b. Right Arm: Motor (10-second hold) - 0(No drift) 6a. Left Leg: Motor (5-second hold - always test supine) - 0(No drift) 6b. Right Leg: Motor (5-second hold - always test supine) - 0(No drift) 7. Limb Ataxia (finger/nose \T\ heel/garzon - test with eyes open) - 0(Absent) 8. Sensory Loss (pinprick arms/legs/face) - 0(Normal) 9. Best Language: Aphasia (description/naming/reading) - 0(No aphasia) Initials: cristopher Signatures: Dispatcher [employer] EDTim Escudero MD MD cha Espinosa, Orlando oe Mitchell, Ginger gm2 Jennifer Plaza RN RN al5 Martine To RN RN kt5 Corrections: (The following items were deleted from the chart) 02:01 02:01 General: see trauma assessment. al5 al5 04:43 04:42 ceFAZolin IVPB 1 grams IVPB in right forearm kt5 kt5
--- NOTE | 2025-04-04 05:50 | EDPHYS ---
Physician Documentation [facility] Name: Melanie Kerr Age: 89 yrs Sex: Female : 1935 Arrival Date: 04/04/2025 Time: 01:17 Bed 15 Private MD: ED Physician Tim Radford HPI: 04/04 03:02 This 89 yrs old Female presents to ER via EMS with complaints of Fall Injury. cristopher 03:02 Details of fall: The patient fell from an upright position, while walking. Onset: The cristopher symptoms/episode began/occurred just prior to arrival. Associated injuries: The patient sustained left hip, decreased range of motion, painful injury, palmar aspect of left forearm, laceration. Severity of symptoms: At their worst the symptoms were mild, in the emergency department the symptoms are unchanged. The patient has not experienced similar symptoms in the past. Historical: - Allergies: 01:17 Codeine (Vomiting); al5 - PMHx: 01:17 Hypertension; Hypothyroidism; Diabetes - NIDDM; Osteoporosis; Sleep Apnea; T12 al5 fracture; TIA; - PSHx: 01:17 None; al5 - Immunization history: Last tetanus immunization: - up to date. - Infectious Disease History:: Denies. - Social history:: Smoking status: Patient denies any tobacco usage or history of. - Family history:: not pertinent. ROS: 03:02 Constitutional: Negative for fever, chills, and weight loss, Eyes: Negative for injury, cristopher pain, redness, and discharge, ENT: Negative for injury, pain, and discharge, Neck: Negative for injury, pain, and swelling, Cardiovascular: Negative for chest pain, palpitations, and edema, Respiratory: Negative for shortness of breath, cough, wheezing, and pleuritic chest pain, Abdomen/GI: Negative for abdominal pain, nausea, vomiting, diarrhea, and constipation, Back: Negative for injury and pain, : Negative for injury, bleeding, discharge, and swelling, Neuro: Negative for headache, weakness, numbness, tingling, and seizure, Psych: Negative for depression, anxiety, suicide ideation, homicidal ideation, and hallucinations, Allergy/Immunology: Negative for hives, rash, and allergies, Endocrine: Negative for neck swelling, polydipsia, polyuria, polyphagia, and marked weight changes, Hematologic/Lymphatic: Negative for swollen nodes, abnormal bleeding, and unusual bruising, 03:02 MS/extremity: Positive for injury or acute deformity, decreased range of motion, laceration, pain, of the left arm, Exam: 03:02 Constitutional: This is a well developed, well nourished patient who is awake, alert, cristopher and in no acute distress. Head/Face: Normocephalic, atraumatic. Eyes: Pupils equal round and reactive to light, extra-ocular motions intact. Lids and lashes normal. Conjunctiva and sclera are non-icteric and not injected. Cornea within normal limits. Periorbital areas with no swelling, redness, or edema. ENT: Nares patent. No nasal discharge, no septal abnormalities noted. Tympanic membranes are normal and external auditory canals are clear. Oropharynx with no redness, swelling, or masses, exudates, or evidence of obstruction, uvula midline. Mucous membranes moist. Neck: Trachea midline, no thyromegaly or masses palpated, and no cervical lymphadenopathy. Supple, full range of motion without nuchal rigidity, or vertebral point tenderness. No Meningismus. Chest/axilla: Normal chest wall appearance and motion. Nontender with no deformity. No lesions are appreciated. Cardiovascular: Regular rate and rhythm with a normal S1 and S2. No gallops, murmurs, or rubs. Normal PMI, no JVD. No pulse deficits. Respiratory: Lungs have equal breath sounds bilaterally, clear to auscultation and percussion. No rales, rhonchi or wheezes noted. No increased work of breathing, no retractions or nasal flaring. Abdomen/GI: Soft, non-tender, with normal bowel sounds. No distension or tympany. No guarding or rebound. No evidence of tenderness throughout. Back: No spinal tenderness. No costovertebral tenderness. Full range of motion. Female : Normal external genitalia. Neuro: Awake and alert, GCS 15, oriented to person, place, time, and situation. Cranial nerves II-XII grossly intact. Motor strength 5/5 in all extremities. Sensory grossly intact. Cerebellar exam normal. Normal gait. Psych: Awake, alert, with orientation to person, place and time. Behavior, mood, and affect are within normal limits. 03:02 ECG was reviewed by the Attending Physician. 03:02 Skin: injury, laceration(s), the wound is approximately 10 cm(s), with a depth of .025 cm(s), of the palmar aspect of left forearm, Vital Signs: 01:17 BP 163 / 91; Pulse 90; Resp 16; Temp 97.8; Pulse Ox 100% on R/A; Weight 50.35 kg; al5 Height 5 ft. 1 in. ; 02:23 BP 176 / 85; Pulse 88; Resp 18 S; Pulse Ox 99% on R/A; kt5 03:42 BP 162 / 80; Pulse 88; Resp 18 S; Pulse Ox 99% ; kt5 04:41 BP 156 / 84; Pulse 88; Resp 18; Pulse Ox 96% ; kt5 05:29 BP 174 / 69; Pulse 74; Resp 18; Pulse Ox 96% ; kt5 06:45 BP 162 / 62; Pulse 88; Resp 18; Pulse Ox 98% ; kt5 01:17 Body Mass Index 20.97 (50.35 kg, 154.94 cm) al5 NIH Stroke Scale Scores: 03:02 NIHSS Score: 0 cristopher [place] Score: 01:17 Eye Response: spontaneous(4). Motor Response: obeys commands(6). Verbal Response: al5 oriented(5). Total: 15. Trauma Score (Adult): 01:17 Eye Response: spontaneous(1); Verbal Response: oriented(1); Motor Response: obeys al5 commands(2); Systolic BP: > 89 mm Hg(4); Respiratory Rate: 10 to 29 per min(4); [place] Score: 15; Trauma Score: 12 Laceration: 03:22 Wound Repair of 10cm ( 3.9in ) subcutaneous laceration to dorsal aspect of left forearm cristopher and palmar aspect of left forearm. Skin/tissue flap noted.. Distal neuro/vascular/tendon intact. Anesthesia: Local anesthetic administered with 10 mls of 2% lidocaine. Wound prep: Moderate cleansing by me. Skin closed with 10 4-0 Prolene using interrupted sutures and sterile technique. Dressed with Bacitracin, Bety, pressure dressing, non-adherent dressing. Patient tolerated well. MDM: 01:20 Medical Screening Exam initiated cristopher 03:05 Differential diagnosis: abrasion, contusion, laceration, multiple trauma, sprain, cristopher strain. Data reviewed: vital signs, nurses notes, EMS record, lab test result(s), EKG, radiologic studies, CT scan, plain films. Consideration of Admission/Observation Patient was admitted/placed on observation. Escalation of care including admission/observation considered. I considered the following discharge prescriptions or medication management in the emergency department Medications were administered in the Emergency Department. See MAR. Independent interpretation of the following test(s) in the Emergency Department EKG: See my EKG interpretation above. Test considered but Not performed: Ultrasound no fast exam. Care significantly affected by the following chronic conditions: Diabetes, Hypertension, osteoporosis, T12 fracture. 03:19 Counseling: I had a detailed discussion with the patient and/or guardian regarding the cristopher historical points, exam findings, and any diagnostic results supporting the discharge/admit diagnosis, the presence of at least one elevated blood pressure reading (>120/80) during this emergency department visit, lab results, radiology results, the need for outpatient follow up, for definitive care, a family practitioner, a general surgeon. 04/04 02:00 Order name: CBC with Diff; Complete Time: 03:10 [facility] 04/04 02:00 Order name: CMP; Complete Time: 04:00 al 04/04 02:00 Order name: Troponin High Sensitivity; Complete Time: 04:00 al 04/04 01:26 Order name: Forearm Left XRAY; Complete Time: 05:45 [facility] 04/04 02:00 Order name: Hip Right 2 View XRAY; Complete Time: 05:45 al5 04/04 02:23 Order name: Head C Spine Mpr Wo Con; Complete Time: 05:45 [facility] 04/04 02:24 Order name: Chest Abd Pelvis Wo Con; Complete Time: 05:45 [facility] 04/04 01:26 Order name: Dressing - Wound; Complete Time: 01:57 cristopher 04/04 01:26 Order name: Gloves, Sterile; Complete Time: 01:43 cristopher 04/04 01:26 Order name: Prolene, Sutures; Complete Time: 01:57 cristopher 04/04 01:26 Order name: Setup Suture Tray; Complete Time: 01:43 cristopher 04/04 01:26 Order name: Wound Care; Complete Time: 02:11 cristopher 04/04 01:26 Order name: Xeroform gauze dressing; Complete Time: 01:57 [facility] 04/04 02:00 Order name: EKG - Nurse/Tech al5 EC:02 Rate is 80 beats/min. Rhythm is regular. QRS [place] is Normal. [place] interval is normal. QRS cristopher interval is normal. QT interval is normal. No Q waves. T waves are Normal. Clinical impression: NSR w/ Non-specific ST/T Changes and No evidence of ischemia. Interpreted by me. Reviewed by me. Administered Medications: 01:56 Drug: Lidocaine-Epinephrine Infiltration -1%: (1:100,000) 10 ml 20 ml Infiltration al5 once; to bedside {Note: given by provider.} Volume: 20 ml; Route: Infiltration; 06:47 Follow up: Response: No adverse reaction kt5 01:56 Not Given (patient up to date on tetanus shott): boostrix tdap0.5 ml IM once; as a al5 single dose 04:29 Drug: ceFAZolin IVPB 1 grams IVPB once Route: IVPB; Site: right forearm; kt5 05:03 Follow up: Response: No adverse reaction kt5 06:45 Follow up: Response: No adverse reaction kt5 06:44 Drug: AZITHromycin PO 500 mg PO once Route: PO; kt5 06:45 Follow up: Response: No adverse reaction kt5 Disposition Summary: 04/04/25 05:49 Discharge Ordered Notes: Location: Home cristopher Problem: new cristopher Symptoms: have improved cristopher Condition: Stable cristopher Diagnosis - Fall on same level, unspecified cristopher - Laceration without foreign body of left forearm - complex large skin tears cristopher - Contusion of left hip cristopher - Acute upper respiratory infection, unspecified cristopher Followup: cristopher - With: Private Physician - When: 2 - 3 days - Reason: Recheck today's complaints, Continuance of care, Re-evaluation by your physician Followup: cristopher - With: Stephan Schwartz MD - When: 2 - 3 days - Reason: Recheck today's complaints, Re-evaluation by your physician Discharge Instructions: - Discharge Summary Sheet cristopher - Delayed Wound Closure cristopher - How to Change Your Wound Dressing cristopher - Laceration Care, Adult cristopher - Skin Tear cristopher - Sutures, [place], or Adhesive Wound Closure cristopher - Upper Respiratory Infection, Adult cristopher - Laceration Care, Adult, [id number] cristopher - Sutured Wound Care, [id number] cristopher - Skin Tear, [id number] cristopher - How to Change Your Wound Dressing, [id number] cristopher Forms: - Medication Reconciliation Form cristopher - Antibiotic Education cristopher - Prescription Opioid Use cristopher - Patient Portal Instructions [facility] - Leadership Thank You Letter [facility] Prescriptions: - Centany 2 % Topical ointment - apply 1 application TOPICAL route 3 times per day; 30 application; Refills: 0, [facility] Product Selection Permitted - Cephalexin 500 mg Oral capsule - take 1 capsule ORAL route every 6 hours for 7 days; 28 capsule; Refills: 0, [facility] Product Selection Permitted - Zithromax 500 mg Oral Tablet - take 1 tablet ORAL route once daily for 5 days; 5 tablet; Refills: 0, Product [facility] Selection Permitted Critical care time excluding procedures: 03:20 Critical care time: Bedside Care: 25 minutes, Consultation: 10 minutes, Family [facility] Intervention: 10 minutes. Total time: 45 minutes NIH Stroke Scale - NIH Stroke Score Date: 04/04/2025 Time: 03:02 Total Score = 0 10. Dysarthria (speech clarity - read or repeat words) - 0(Normal) 11. Extinction and Inattention (visual/tactile/auditory/spatial/personal) - 0(No abnormality) 1a. Level of Consciousness (LOC) - 0(Alert) 1b. Level of Consciousness (LOC) (Month \T\ Age) - 0(Both) 1c. LOC Commands (Open \T\ Closes Eyes/Methods Analyst Data Processing) - 0(Both) 2. Best Gaze (Lateral Gaze Paresis) - 0(Normal) 3. Visual Field Loss - 0(No visual loss) 4. Facial Palsy - 0(Normal) 5a. Left Arm: Motor (10-second hold) - 0(No drift) 5b. Right Arm: Motor (10-second hold) - 0(No drift) 6a. Left Leg: Motor (5-second hold - always test supine) - 0(No drift) 6b. Right Leg: Motor (5-second hold - always test supine) - 0(No drift) 7. Limb Ataxia (finger/nose \T\ heel/[place] - test with eyes open) - 0(Absent) 8. Sensory Loss (pinprick arms/legs/face) - 0(Normal) 9. Best Language: Aphasia (description/naming/reading) - 0(No aphasia) Initials: [facility] Signatures: Dispatcher [employer] Tim Sanabria MD MD cha Langhorst, Amanda, RN RN al5 Martine To RN RN kt5 Corrections: (The following items were deleted from the chart) 01:26 01:26 Forearm Left+RAD.RAD.BRZ ordered. EDMS EDMS 02:01 02:01 CBC+H.LAB.BRZ ordered. EDMS EDMS 02:01 02:01 COMPREHENSIVE METABOLIC PANEL+C.LAB.BRZ ordered. EDMS EDMS 02:01 02:01 Troponin High Sensitivity+C.LAB.BRZ ordered. EDMS EDMS 02:01 02:01 Hip Right 2 View+RAD.RAD.BRZ ordered. EDMS EDMS 02:23 02:00 Head Brain W/ Wo Con+CT.RAD.BRZ ordered. EDMS EDMS 02:24 02:00 C Spine Wo Con+CT.RAD.BRZ ordered. EDMS EDMS 02:24 02:00 Head C Spine Cap Wo Con+CT.RAD.BRZ ordered. EDMS EDMS
[2025-04-04] MEDS ORDERED: AZITHROMYCIN 250 MG TAB ONE (06:06)
[2025-04-04 10:00] VITALS: TEMP 97.8
[2025-04-04 10:19] VITALS: BP 162/62; O2SAT 98
== END 2025-04-04 06:49 | disposition home or self-care (01) ==
LOC: ER 01:17
PROC: 0JQH0ZZ Repair Left Lower Arm Subcutaneous Tissue and Fascia, Open Approach (ICD-10-PCS; principal; 2025-04-04)
DX: S51.812A Laceration without foreign body of left forearm, initial encounter (principal); S70.02XA Contusion of left hip, initial encounter; J06.9 Acute upper respiratory infection, unspecified; W18.30XA Fall on same level, unspecified, initial encounter
CPT/HCPCS: 93005; 85025; 36415; 84484; 80053; 70450; 71250; 72125; 74176; 73502; 73090; 12004; J2003; J0690